=== PATIENT | female | born 1940 | race Two or more races ===

== ENCOUNTER 2017-10-31 16:46 | Inpatient (IN) | payer MEDICARE, MEDICAID ==
[2017-10-31] MEDS ORDERED: Levofloxacin 500mg/100mL 500 MG/100 ML BAG IV ONE ×2 (17:07→17:41)
--- NOTE | 2017-10-31 17:13 | ED Physician Chart ---
ED Chief Complaint/HPI - Patient Information Date Seen:: 10/31/17 Time Seen:: 16:50 Chief Complaint:: Dysuria History of Present Illness:: onset x 4 days of dysuria; Dx with UTI but is resistant to Bactrim; no report of trauma, LOC, H/As, S/T, neck pain, C/P, SOB, Abd. Pain, A/N/V/D/C, fever, chills, or urinary s/s Allergies:: Allergies Allergy/AdvReac Type Severity Reaction Status Date / Time codeine AdvReac Verified 08/26/15 18:25 Penicillins [PCN] AdvReac Verified 08/26/15 18:25 tetracycline AdvReac Verified 08/26/15 18:26 Historian:: Patient, EMS Review:: Nurse's Note Reviewed, Old Chart Reviewed, EMS run form Reviewed <Monroe Castro - Last Filed: 10/31/17 17:15> - Patient Information Allergies:: Allergies Allergy/AdvReac Type Severity Reaction Status Date / Time codeine AdvReac Verified 08/26/15 18:25 Penicillins [PCN] AdvReac Verified 08/26/15 18:25 tetracycline AdvReac Verified 08/26/15 18:26 Vitals:: Vital Signs - 8 hr 10/31/17 20:00 Temp 98.8 F HR 98 RR 18 BP 134/80 O2 Sat % 96 <Mey Venegas - Last Filed: 11/01/17 01:36> ED Review of Systems - Review of Systems General/Constitutional: Fever, No chills, No weight loss, Weakness, No diaphoresis, No edema, No loss of appetite Skin: No skin lesions, No rash, No bruising Head: No headache, No light-headedness Eyes: No loss of vision, No pain, No diplopia ENT: No earache, No nasal drainage, No sore throat, No tinnitus Neck: No neck pain, No swelling, No thyromegaly, No stiffness, No mass noted Cardio Vascular: No chest pain, No palpitations, No PND, No orthopnea, No edema Pulmonary: No SOB, No cough, No sputum, No wheezing GI: No nausea, No vomiting, No diarrhea, No pain, No melena, No hematochezia, No constipation, No hematemesis G/U: Dysuria, No frequency, No hematuria, No nacturia Medical Claims Analyst: No vaginal discharge, No abnormal vaginal bleed, No contraction Musculoskeletal: No bone or joint pain, No back pain, No muscle pain Endocrine: No polyuria, No polydipsia Psychiatric: Prior psych history, No depression, Anxiety, No suicidal ideation, No homicidal ideation, No auditory hallucination, No visual hallucination Hematopoietic: No bruising, No lymphadenopathy Allergic/Immuno: No urticaria, No angioedema Neurological: No syncope, No focal symptoms, No weakness, No paresthesia, No headache, No seizure, No dizziness, Confusion, No vertigo <Monroe Castro - Last Filed: 10/31/17 17:15> ED Past Medical History - Past Medical History Obtainable: Yes Past Medical History: HTN, Asthma/COPD, Dyslipidemia, Arthritis, Dementia Family History: HTN Social History: Non Smoker, No Alcohol, No Drug Use, , Care Facility Surgical History: None Psychiatricy History: Schizophrenia, Bipolar, Dementia Medication: Reviewed <Monroe Castro - Last Filed: 10/31/17 17:15> Family Medical History - Family Member Mother History Unknown: Yes Ethnicity: <Monroe Castro - Last Filed: 10/31/17 17:15> ED Physical Exam - Physical Examination General/Constitutional: Awake, Well-developed, well-nourished, Alert, No distress, GCS 15, Non-toxic appearing, Ambulatory Head: Atraumatic Eyes: Lids, conjuctiva normal, PERRL, EOMI Skin: Nl inspection, No rash, No skin lesions, No ecchymosis, Well hydrated, No lymphadenopathy ENMT: External ears, nose nl, TM canals nl, Nasal exam nl, Lips, teeth, gums nl , Oropharynx nl, Tonsils nl Neck: Nontender, Full ROM w/o pain, No JVD, No nuchal rigidity, No bruit, No mass, No stridor Respiratory: Nl effort/Exclusion, Clear to Auscultation, No Wheeze/Rhonchi/Rales Cardio Vascular: RRR, No murmur, gallop, rubs, NL S1 S2, Carotid/Femoral/Distal pulses equal bilaterally GI: No tenderness/rebounding/guarding, No organomegaly, No hernia, Normal BS's, Nondistended, No mass/bruits, No McBurney tenderness : No CVA tenderness Extremities: No tenderness or effusion, Full ROM, normal strength in all extremities, No edema, Normal digits & nails Neuro/Psych: Alert/oriented, DTR's symmetric, Normal sensory exam, Normal motor strength, Judgement/insight normal, Mood normal, Normal gait, No focal deficits Misc: Normal back, No paraspinal tenderness <Monroe Castro - Last Filed: 10/31/17 17:15> ED Labs/Radiology/EKG Results - EKG Interpretations EKG Time:: 17:11 Rate & Rhythm: 115; ST Comments:: LVH; non-specific st-t changes <Monroe Castro - Last Filed: 10/31/17 17:15> - Lab Results Results: Laboratory Tests 10/31/17 10/31/17 10/31/17 17:20 17:20 17:20 WBC 13.3 H RBC 5.26 H Hgb 13.8 Hct 41.8 MCV 79.4 L MCH 26.3 L MCHC Differential 33.2 RDW 17.4 Plt Count 324 MPV 8.9 Neutrophils % 85.5 H Lymphocytes % 11.2 L Monocytes % 2.8 Eosinophils % 0.0 Basophils % 0.5 PT 11.2 INR 1.08 PTT (Actin FS) 24.0 L Sodium 131 L Potassium 4.4 Chloride 98 Carbon Dioxide 20.5 L Anion Gap 16.9 H BUN 35 H Creatinine 1.7 H Est GFR ( Amer) TNP Est GFR (Non-Af Amer) TNP BUN/Creatinine Ratio 20.6 Glucose 127 H Whole Bld Lactic Acid Calcium 11.2 H Total Bilirubin 0.7 AST 30 ALT 22 Alkaline Phosphatase 69 Creatine Kinase 143 Troponin I Total Protein 8.1 Albumin 4.3 Globulin 3.8 Albumin/Globulin Ratio 1.1 Urine Source Urine Color Urine Clarity Urine pH Ur Specific [place] Urine Protein Urine Glucose (UA) Urine Ketones Urine Blood Urine Nitrate Urine Bilirubin Urine Ictotest Urine Urobilinogen Ur Leukocyte Esterase Urine RBC Urine WBC Ur Epithelial Cells Urine Bacteria Fine Granular Casts 10/31/17 10/31/17 10/31/17 17:20 17:20 19:40 WBC RBC Hgb Hct MCV MCH MCHC Differential RDW Plt Count MPV Neutrophils % Lymphocytes % Monocytes % Eosinophils % Basophils % PT INR PTT (Actin FS) Sodium Potassium Chloride Carbon Dioxide Anion Gap BUN Creatinine Est GFR ( Amer) Est GFR (Non-Af Amer) BUN/Creatinine Ratio Glucose Whole Bld Lactic Acid 3.00 H* Calcium Total Bilirubin AST ALT Alkaline Phosphatase Creatine Kinase Troponin I 0.03 Total Protein Albumin Globulin Albumin/Globulin Ratio Urine Source CLEAN C Urine Color YELLOW Urine Clarity CLEAR Urine pH 5.5 Ur Specific [place] >= 1.030 Urine Protein TRACE Urine Glucose (UA) NEGATIVE Urine Ketones TRACE Urine Blood TRACE Urine Nitrate NEGATIVE Urine Bilirubin MODERATE H Urine Ictotest Not Reportable Urine Urobilinogen 1.0 Ur Leukocyte Esterase NEGATIVE Urine RBC 5-10 H Urine WBC 2-5 Ur Epithelial Cells MODERATE Urine Bacteria FEW Fine Granular Casts 2-5 H 10/31/17 19:40 WBC RBC Hgb Hct MCV MCH MCHC Differential RDW Plt Count MPV Neutrophils % Lymphocytes % Monocytes % Eosinophils % Basophils % PT INR PTT (Actin FS) Sodium Potassium Chloride Carbon Dioxide Anion Gap BUN Creatinine Est GFR ( Amer) Est GFR (Non-Af Amer) BUN/Creatinine Ratio Glucose Whole Bld Lactic Acid 1.80 Calcium Total Bilirubin AST ALT Alkaline Phosphatase Creatine Kinase Troponin I Total Protein Albumin Globulin Albumin/Globulin Ratio Urine Source Urine Color Urine Clarity Urine pH Ur Specific [place] Urine Protein Urine Glucose (UA) Urine Ketones Urine Blood Urine Nitrate Urine Bilirubin Urine Ictotest Urine Urobilinogen Ur Leukocyte Esterase Urine RBC Urine WBC Ur Epithelial Cells Urine Bacteria Fine Granular Casts <Mey Venegas - Last Filed: 11/01/17 01:36> ED Septic Shock - . Is Septic Shock (SBP<90, OR Lactate>4 mmol\L) present?: No <Monroe Castro - Last Filed: 10/31/17 17:15> - . Is Septic Shock (SBP<90, OR Lactate>4 mmol\L) present?: No - <6hrs of presentation: Vital Signs: Vital Signs - 8 hr 10/31/17 20:00 Temp 98.8 F HR 98 RR 18 BP 134/80 O2 Sat % 96 <Mey Venegas - Last Filed: 11/01/17 01:36> ED Reassessment (Disposition) - Reassessment Reassessment Condition:: Improved - Diagnosis Diagnosis:: UTI; Sepsis <Monroe Castro - Last Filed: 10/31/17 17:15> - Reassessment Reassessment:: Urinary tract infection Leukocytosis Hyponatremia Dehydration Levaquin IV NS IV bolus - Patient Disposition Discharge/Transfer:: Acute Care w/in this hosp Admitting Medical Physician:: Ben De Souza <Mey Venegas - Last Filed: 11/01/17 01:36>
[2017-10-31 17:38] LABS: % BASOPHILS 0.5 % (0.0-2.0); % LYMPHOCYTES 11.2 % (20.0-50.0); % MONOCYTES 2.8 % (2.0-10.0); % NEUTROPHILS 85.5 % (40.0-80.0); BASOPHILE ABSOLUTE 0.1 Th/cumm (0-0.2); HEMATOCRIT 41.8 % (41.0-60); HEMOGLOBIN 13.8 gm/dL (12-16); LYMPHOCYTE ABSOLUTE 1.5 Th/cmm (1.5-3.0); MEAN CELL VOLUME 79.4 fl (81-100); MEAN CORPUSCULAR HEMOGLOBIN 26.3 pg (27.0-31.0); MEAN CORPUSCULAR HGB CONC 33.2 pg (28.0-36.0); MEAN PLATELET VOLUME 8.9 fl; MONOCYTE ABSOLUTE 0.4 Th/cmm (0.3-1.0); NEUTROPHILE ABSOLUTE 11.3 Th/cmm (1.8-8.0); PLATELET COUNT 324 Th/cmm (150-400); RED BLOOD COUNT 5.26 Mil/cmm (3.80-5.20); RED CELL DISTRIBUTION WIDTH 17.4 % (11.5-20.0); WHITE BLOOD COUNT 13.3 Th/cmm (4.8-10.8)
[2017-10-31 17:45] LABS: INR 1.08 (0.5-1.4); PROTHROMBIN TIME (TEST) 11.2 SECONDS (9.5-11.5)
[2017-10-31 17:48] LABS: ALB/GLOB RATIO 1.1 (1.0-1.8); ALBUMIN 4.3 gm/dL (3.7-5.3); ALKALINE PHOSPHATASE 69 U/L (34-104); ANION GAP 16.9 (7.0-16.0); BILIRUBIN,TOTAL 0.7 mg/dL (0.3-1.0); BUN - UREA NITROGEN 35 mg/dL (7-25); CALCIUM SERUM 11.2 mg/dL (8.6-10.3); CARBON DIOXIDE 20.5 mEq/L (21.0-31.0); CHLORIDE 98 mEq/L (98-107); CREATININE - SERUM 1.7 mg/dL (0.6-1.2); CREATININE KINASE 143 U/L (30-223); GLUCOSE 127 mg/dL (70-105); POTASSIUM SERUM 4.4 mEq/L (3.5-5.1); SGOT 30 U/L (13-39); SGPT/ALT 22 U/L (7-52); SODIUM SERUM 131 mEq/L (136-145); TOTAL PROTEIN,SERUM 8.1 gm/dL (6.0-8.3)
[2017-10-31] MEDS ORDERED: Sodium Chloride 0.9% 1,000 ML IV ONE (19:12)
[2017-10-31] MEDS ORDERED: Sodium Chloride 0.45% 1,000 ML IV ONE (19:12)
[2017-10-31 20:03] LABS: URINE SOURCE CLEAN C
[2017-10-31 20:04] LABS: URINE BILIRUBIN MODERATE (NEGATIVE); URINE BLOOD TRACE (NEGATIVE); URINE CLARITY CLEAR (CLEAR); URINE COLOR YELLOW; URINE GLUCOSE (UA) NEGATIVE (NEGATIVE); URINE KETONE TRACE mg/dL (NEGATIVE); URINE LEUKOCYTE ESTERASE NEGATIVE (NEGATIVE); URINE MICROSCOPIC INDICATED? YES; URINE NITRATE NEGATIVE (NEGATIVE); URINE PH 5.5 (4.6 - 8.0); URINE PROTEIN TRACE mg/dL (NEGATIVE)
[2017-10-31 20:07] LABS: URINE BACTERIA FEW /hpf (NONE SEEN); URINE EPITHELIAL CELLS MODERATE /lpf (FEW)
[2017-10-31] MEDS ORDERED: Sodium Chloride 0.9% 1,000 ML IV SCH (20:51)
[2017-10-31] MEDS ORDERED: Levofloxacin 750mg/150mL 750 MG/150 ML BAG IV SCH (21:00)
[2017-10-31] MEDS ORDERED: Magnesium Hydroxide (MOM) 30 mL UDC PO PRN (23:00)
[2017-10-31] MEDS ORDERED: Albuterol Nebulizer 2.5mg/3mL HHN PRN (23:00)
[2017-11-01] MEDS: Albuterol Nebulizer 2.5mg/3mL HHN SCH ×7 (00:05→23:26)
[2017-11-01 00:53] VITALS: BP 164/82
[2017-11-01] MEDS: Sodium Chloride 0.9% 1,000 ML IV SCH ×2 (01:55→20:16)
[2017-11-01 05:50] LABS: % BASOPHILS 0.7 % (0.0-2.0); % EOSINOPHILS 0.4 % (0.0-5.0); % LYMPHOCYTES 18.9 % (20.0-50.0); % MONOCYTES 7.6 % (2.0-10.0); % NEUTROPHILS 72.4 % (40.0-80.0); BASOPHILE ABSOLUTE 0.1 Th/cumm (0-0.2); HEMOGLOBIN 11.7 gm/dL (12-16); LYMPHOCYTE ABSOLUTE 1.8 Th/cmm (1.5-3.0); MEAN CELL VOLUME 80.4 fl (81-100); MEAN CORPUSCULAR HGB CONC 32.3 pg (28.0-36.0); MONOCYTE ABSOLUTE 0.7 Th/cmm (0.3-1.0); NEUTROPHILE ABSOLUTE 6.8 Th/cmm (1.8-8.0); RED BLOOD COUNT 4.51 Mil/cmm (3.80-5.20); RED CELL DISTRIBUTION WIDTH 17.6 % (11.5-20.0)
[2017-11-01 05:52] LABS: HEMATOCRIT 36.3 % (41.0-60); PLATELET COUNT 190 Th/cmm (150-400); WHITE BLOOD COUNT 9.4 Th/cmm (4.8-10.8)
[2017-11-01 05:57] LABS: ALB/GLOB RATIO 1.2 (1.0-1.8); ALBUMIN 3.4 gm/dL (3.7-5.3); ALKALINE PHOSPHATASE 52 U/L (34-104); BILIRUBIN,TOTAL 0.6 mg/dL (0.3-1.0); BUN - UREA NITROGEN 31 mg/dL (7-25); CALCIUM SERUM 9.8 mg/dL (8.6-10.3); CREATININE - SERUM 1.3 mg/dL (0.6-1.2); GLUCOSE 99 mg/dL (70-105); POTASSIUM SERUM 4.2 mEq/L (3.5-5.1); SGOT 21 U/L (13-39); SGPT/ALT 15 U/L (7-52); SODIUM SERUM 132 mEq/L (136-145); TOTAL PROTEIN,SERUM 6.2 gm/dL (6.0-8.3)
--- NOTE | 2017-11-01 08:36 | History and Physical ---
History of Present Illness - HPI Chief Complaint: Increased in confusion HPI: This is a patient that I follow in an SNF, I received a phone call that patient has been more confused, UA showed UTI , order to transferred patient to ER was given. In ER exam was found Leukocytosis. 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 GI: Report: No Pertinent Hx Psych: Report: Schizophrenia Musculoskeletal: Report: Other (General weakness) Rheumatologic: Report: No pertinent Hx Infectious Disease: Report: No Pertinent Hx Renal/: Report: No Pertinent Hx Endocrine: Report: No Pertinent Hx Dermatology: Report: No Pertinent Hx - Past Surgical History Past Surgical History: No pertinent Hx Family Medical History - Family Member Mother History Unknown: Yes Name:: roger Age: 76 Ethnicity: Living Status: Still Living Hx Family Cancer: No Hx Family Coronary Artery Disease: Yes Hx Family Congestive Heart Failure: No Hx Family Hypertension: Yes Hx Family Stroke: No Hx Family Diabetes: No Hx Family Seizures: No Hx Family Dementia: No Hx Family AIDS: No Hx Family HIV: No Hx Family COPD: No Hx Family Hepatitis: No Hx Family Psychiatric Problems: No Hx Family Tuberculosis: No Social History Smoke: No Alcohol: None Drugs: None Lives: Residential Domestic Violence: Negative - Medications Home Medications: Home Medication Medication Instructions Recorded Type Albuterol Nebulizer 2.5mg/3mL 2.5 mg HHN Q4HRT #0 each 01/25/16 Rx [Albuterol Neb UD*] Aspirin [Aspirin Chewable] 81 mg PO DAILY #0 ctb 01/25/16 Rx Atorvastatin Calcium [Lipitor] 20 mg PO HS #0 tab 01/25/16 Rx Bisacodyl [Dulcolax 5 Mg Ec Tab] 10 mg PO BID #0 ect 01/25/16 Rx Calcium Carb/Vit D 500mg/200U 1 tab PO DAILY #0 tab 01/25/16 Rx [Oscal w/Vitamin D] Cyanocobalamin [Vitamin B12] 1,000 mcg PO DAILY #0 tab 01/25/16 Rx Docusate Sodium [Colace] 250 mg PO DAILY #0 sgl 01/25/16 Rx Magnesium Hydroxide [Milk of 30 ml PO DAILY PRN #0 udc 01/25/16 Rx Magnesia] Multivitamin w/ Minerals 1 tab PO DAILY #0 tab 01/25/16 Rx [Theragran M] Acetaminophen [Tylenol] 650 mg PO Q4HR PRN 10/31/17 History Albuterol Sulfate [Proair 2 puff IH Q12H PRN 10/31/17 History Respiclick] Atorvastatin Calcium [Lipitor] 20 mg PO HS 10/31/17 History Calcium Carbonate 1,000 mg PO Q6H PRN 10/31/17 History Calcium Carbonate/Vitamin D3 1 tab PO DAILY 10/31/17 History [Calcium 500-Vit D3 200 Caplet] Clonidine HCl [Catapres] 0.1 mg PO Q8H PRN 10/31/17 History Cranberry Fruit [Cranberry] 450 mg PO BID 10/31/17 History Cyclosporine [Restasis] 1 drop OP BID 10/31/17 History Ferrous Sulfate [Iron] 325 mg PO DAILY 10/31/17 History Omeprazole 20 mg PO DAILY 10/31/17 History Potassium Chloride [Klor-Con 10] 1 tab PO DAILY 10/31/17 History Potassium Chloride [Klor-Con M10] 1 tab PO DAILY 10/31/17 History Protein Hydrolysate,Milk [Liquid 30 ml PO DAILY 10/31/17 History Protein Fortifier] Sertraline [Zoloft] 50 mg PO HS 10/31/17 History - Allergies Allergies/Adverse Reactions: Allergies Allergy/AdvReac Type Severity Reaction Status Date / Time codeine AdvReac Verified 08/26/15 18:25 Penicillins [PCN] AdvReac Verified 08/26/15 18:25 tetracycline AdvReac Verified 08/26/15 18:26 Review of Systems - Review of Systems Constitutional: Report: Weakness Eyes: Report: No Significant ENT: Report: No Significant Respiratory: Report: No Significant Cardiovascular: Report: No Significant Gastrointestinal: Report: No Significant Genitourinary: Report: Dysuria Musculoskeletal: Report: Other (Muscle weakness) Skin: Report: No Significant Neurological: Report: Weakness Physical Exam - Physical Exam HEENT: Report: Ears Nose Throat within normal limits Neck: Report: Within normal limits Cardiovascular Systems: Report: Regular, Rate and Rhythm Respiratory: Report: Other (Bilateral low air entry.) Abdomen: Report: Non-tender to palpation Back: Report: Inspection of back is within normal limits. Extremities: Report: Non-tender to palpation. Skin: Report: Color of skin is within normal limits, Warm, Dry Neuro/Psych: Report: Mood affect is within normal limits - Lab Results All Lab Results last 24 hours: Laboratory Results - last 24 hr 10/31/17 10/31/17 10/31/17 17:20 17:20 17:20 WBC 13.3 H RBC 5.26 H Hgb 13.8 Hct 41.8 MCV 79.4 L MCH 26.3 L MCHC Differential 33.2 RDW 17.4 Plt Count 324 MPV 8.9 Neutrophils % 85.5 H Lymphocytes % 11.2 L Monocytes % 2.8 Eosinophils % 0.0 Basophils % 0.5 PT 11.2 INR 1.08 PTT (Actin FS) 24.0 L Sodium 131 L Potassium 4.4 Chloride 98 Carbon Dioxide 20.5 L Anion Gap 16.9 H BUN 35 H Creatinine 1.7 H Est GFR ( Amer) TNP Est GFR (Non-Af Amer) TNP BUN/Creatinine Ratio 20.6 Glucose 127 H Whole Bld Lactic Acid Calcium 11.2 H Total Bilirubin 0.7 AST 30 ALT 22 Alkaline Phosphatase 69 Creatine Kinase 143 Troponin I Total Protein 8.1 Albumin 4.3 Globulin 3.8 Albumin/Globulin Ratio 1.1 Urine Source Urine Color Urine Clarity Urine pH Ur Specific [place] Urine Protein Urine Glucose (UA) Urine Ketones Urine Blood Urine Nitrate Urine Bilirubin Urine Ictotest Urine Urobilinogen Ur Leukocyte Esterase Urine RBC Urine WBC Ur Epithelial Cells Urine Bacteria Fine Granular Casts 10/31/17 10/31/17 10/31/17 17:20 17:20 19:40 WBC RBC Hgb Hct MCV MCH MCHC Differential RDW Plt Count MPV Neutrophils % Lymphocytes % Monocytes % Eosinophils % Basophils % PT INR PTT (Actin FS) Sodium Potassium Chloride Carbon Dioxide Anion Gap BUN Creatinine Est GFR ( Amer) Est GFR (Non-Af Amer) BUN/Creatinine Ratio Glucose Whole Bld Lactic Acid 3.00 H* Calcium Total Bilirubin AST ALT Alkaline Phosphatase Creatine Kinase Troponin I 0.03 Total Protein Albumin Globulin Albumin/Globulin Ratio Urine Source CLEAN C Urine Color YELLOW Urine Clarity CLEAR Urine pH 5.5 Ur Specific [place] >= 1.030 Urine Protein TRACE Urine Glucose (UA) NEGATIVE Urine Ketones TRACE Urine Blood TRACE Urine Nitrate NEGATIVE Urine Bilirubin MODERATE H Urine Ictotest Not Reportable Urine Urobilinogen 1.0 Ur Leukocyte Esterase NEGATIVE Urine RBC 5-10 H Urine WBC 2-5 Ur Epithelial Cells MODERATE Urine Bacteria FEW Fine Granular Casts 2-5 H 10/31/17 11/01/17 11/01/17 19:40 04:55 04:55 WBC 9.4 D RBC 4.51 Hgb 11.7 L Hct 36.3 L D MCV 80.4 L MCH 26.0 L MCHC Differential 32.3 RDW 17.6 Plt Count 190 D MPV 9.0 Neutrophils % 72.4 Lymphocytes % 18.9 L Monocytes % 7.6 Eosinophils % 0.4 Basophils % 0.7 PT INR PTT (Actin FS) Sodium 132 L Potassium 4.2 Chloride Carbon Dioxide Anion Gap 10.7 BUN 31 H Creatinine 1.3 H Est GFR ( Amer) TNP Est GFR (Non-Af Amer) TNP BUN/Creatinine Ratio 23.8 Glucose 99 Whole Bld Lactic Acid 1.80 Calcium 9.8 Total Bilirubin 0.6 AST 21 ALT 15 Alkaline Phosphatase 52 Creatine Kinase Troponin I Total Protein 6.2 Albumin 3.4 L Globulin 2.8 Albumin/Globulin Ratio 1.2 Urine Source Urine Color Urine Clarity Urine pH Ur Specific [place] Urine Protein Urine Glucose (UA) Urine Ketones Urine Blood Urine Nitrate Urine Bilirubin Urine Ictotest Urine Urobilinogen Ur Leukocyte Esterase Urine RBC Urine WBC Ur Epithelial Cells Urine Bacteria Fine Granular Casts - Assessment Assessment: Patient is awake, alert, calm, in no acute distress. Patient shows Leukocytosis. Dx. Leukocytosis, UTI. - Plan Plan: Patient in IV NS, IV AB, continue with SNF meds. Will continue to monitor.
[2017-11-01 08:47] LABS: ANION GAP 12.9 (7.0-16.0); CARBON DIOXIDE 19.3 mEq/L (21.0-31.0); CHLORIDE 104 mEq/L (98-107)
--- NOTE | 2017-11-01 08:48 | Diagnostic Imaging Report ---
CHEST X-RAY: AP view INDICATION: Congestion COMPARISON: 02/01/2016 FINDINGS: Mild increased interstitial lung markings are noted. No focal consolidation pleural effusions or evidence of leopoldo CHF. Heart size is within normal limits. Mildly tortuous aorta is noted. Degenerative changes of the spine are noted. IMPRESSION: Mild increased interstitial lung markings probably due to chronic lung changes. No evidence of leopoldo CHF. No focal consolidation identified.
[2017-11-01] MEDS ORDERED: CYCLOSPORINE OP SCH (09:00)
[2017-11-01] MEDS: Pantoprazole 40 mg EC Tab PO SCH (09:57)
[2017-11-01] MEDS: Multivitamin w/ Minerals Tab PO SCH (09:57)
[2017-11-01] MEDS: Aspirin 81mg Chewable Tab PO SCH (09:58)
[2017-11-01] MEDS: Atorvastatin Calcium 10 MG TAB PO SCH (20:17)
[2017-11-01] MEDS ORDERED: Non-Formulary Item 1 EA (Atorvastatin Calcium [Lipitor] 20 MG) PO SCH (21:00)
[2017-11-02] MEDS: Albuterol Nebulizer 2.5mg/3mL HHN SCH ×6 (03:44→22:41)
[2017-11-02 06:44] LABS: % BASOPHILS 0.9 % (0.0-2.0); % EOSINOPHILS 0.5 % (0.0-5.0); % LYMPHOCYTES 16.5 % (20.0-50.0); % MONOCYTES 6.7 % (2.0-10.0); % NEUTROPHILS 75.4 % (40.0-80.0); BASOPHILE ABSOLUTE 0.1 Th/cumm (0-0.2); HEMATOCRIT 33.9 % (41.0-60); HEMOGLOBIN 11.2 gm/dL (12-16); LYMPHOCYTE ABSOLUTE 1.2 Th/cmm (1.5-3.0); MEAN CELL VOLUME 79.5 fl (81-100); MEAN CORPUSCULAR HEMOGLOBIN 26.3 pg (27.0-31.0); MONOCYTE ABSOLUTE 0.5 Th/cmm (0.3-1.0); NEUTROPHILE ABSOLUTE 5.7 Th/cmm (1.8-8.0); PLATELET COUNT 239 Th/cmm (150-400); RED BLOOD COUNT 4.26 Mil/cmm (3.80-5.20); WHITE BLOOD COUNT 7.5 Th/cmm (4.8-10.8)
[2017-11-02 07:12] LABS: ALB/GLOB RATIO 1.2 (1.0-1.8); ALBUMIN 3.5 gm/dL (3.7-5.3); ALKALINE PHOSPHATASE 50 U/L (34-104); ANION GAP 11.5 (7.0-16.0); BILIRUBIN,TOTAL 0.5 mg/dL (0.3-1.0); BUN - UREA NITROGEN 22 mg/dL (7-25); CALCIUM SERUM 10.1 mg/dL (8.6-10.3); CARBON DIOXIDE 22.7 mEq/L (21.0-31.0); CHLORIDE 104 mEq/L (98-107); CREATININE - SERUM 0.9 mg/dL (0.6-1.2); GLUCOSE 102 mg/dL (70-105); POTASSIUM SERUM 4.2 mEq/L (3.5-5.1); SGOT 18 U/L (13-39); SGPT/ALT 16 U/L (7-52); SODIUM SERUM 134 mEq/L (136-145); TOTAL PROTEIN,SERUM 6.4 gm/dL (6.0-8.3)
[2017-11-02] MEDS: Pantoprazole 40 mg EC Tab PO SCH ×2 (09:00→09:14)
[2017-11-02] MEDS: Multivitamin w/ Minerals Tab PO SCH ×2 (09:00→09:14)
[2017-11-02] MEDS: Aspirin 81mg Chewable Tab PO SCH ×2 (09:00→09:14)
--- NOTE | 2017-11-02 09:12 | General Progress Note ---
Subjective - Review of Systems Service Date: 11/02/17 Subjective: I am better Objective - Results Result Diagrams: 11/02/17 05:50 11/02/17 05:50 Recent Labs: Laboratory Last Values WBC 7.5 Th/cmm (4.8-10.8) 11/02/17 05:50 RBC 4.26 Mil/cmm (3.80-5.20) 11/02/17 05:50 Hgb 11.2 gm/dL (12-16) L 11/02/17 05:50 Hct 33.9 % (41.0-60) L 11/02/17 05:50 MCV 79.5 fl (81-100) L 11/02/17 05:50 MCH 26.3 pg (27.0-31.0) L 11/02/17 05:50 MCHC Differential 33.0 pg (28.0-36.0) 11/02/17 05:50 RDW 18.0 % (11.5-20.0) 11/02/17 05:50 Plt Count 239 Th/cmm (150-400) 11/02/17 05:50 MPV 9.0 fl 11/02/17 05:50 Neutrophils % 75.4 % (40.0-80.0) 11/02/17 05:50 Lymphocytes % 16.5 % (20.0-50.0) L 11/02/17 05:50 Monocytes % 6.7 % (2.0-10.0) 11/02/17 05:50 Eosinophils % 0.5 % (0.0-5.0) 11/02/17 05:50 Basophils % 0.9 % (0.0-2.0) 11/02/17 05:50 PT 11.2 SECONDS (9.5-11.5) 10/31/17 17:20 INR 1.08 (0.5-1.4) 10/31/17 17:20 PTT (Actin FS) 24.0 SECONDS (26.0-38.0) L 10/31/17 17:20 Sodium 134 mEq/L (136-145) L 11/02/17 05:50 Potassium 4.2 mEq/L (3.5-5.1) 11/02/17 05:50 Chloride 104 mEq/L (98-107) 11/02/17 05:50 Carbon Dioxide 22.7 mEq/L (21.0-31.0) 11/02/17 05:50 Anion Gap 11.5 (7.0-16.0) 11/02/17 05:50 BUN 22 mg/dL (7-25) 11/02/17 05:50 Creatinine 0.9 mg/dL (0.6-1.2) 11/02/17 05:50 Est GFR ( Amer) TNP 11/02/17 05:50 Est GFR (Non-Af Amer) TNP 11/02/17 05:50 BUN/Creatinine Ratio 24.4 11/02/17 05:50 Glucose 102 mg/dL (70-105) 11/02/17 05:50 Whole Bld Lactic Acid 1.80 mmol/L (0.60-1.99) 10/31/17 19:40 Calcium 10.1 mg/dL (8.6-10.3) 11/02/17 05:50 Total Bilirubin 0.5 mg/dL (0.3-1.0) 11/02/17 05:50 AST 18 U/L (13-39) 11/02/17 05:50 ALT 16 U/L (7-52) 11/02/17 05:50 Alkaline Phosphatase 50 U/L (34-104) 11/02/17 05:50 Creatine Kinase 143 U/L (30-223) 10/31/17 17:20 Troponin I 0.03 ng/mL (0.01-0.05) 10/31/17 17:20 Total Protein 6.4 gm/dL (6.0-8.3) 11/02/17 05:50 Albumin 3.5 gm/dL (3.7-5.3) L 11/02/17 05:50 Globulin 2.9 gm/dL 11/02/17 05:50 Albumin/Globulin Ratio 1.2 (1.0-1.8) 11/02/17 05:50 Urine Source CLEAN C 10/31/17 19:40 Urine Color YELLOW 10/31/17 19:40 Urine Clarity CLEAR (CLEAR) 10/31/17 19:40 Urine pH 5.5 (4.6 - 8.0) 10/31/17 19:40 Ur Specific [place] >= 1.030 (1.005-1.030) 10/31/17 19:40 Urine Protein TRACE mg/dL (NEGATIVE) 10/31/17 19:40 Urine Glucose (UA) NEGATIVE mg/dL (NEGATIVE) 10/31/17 19:40 Urine Ketones TRACE mg/dL (NEGATIVE) 10/31/17 19:40 Urine Blood TRACE (NEGATIVE) 10/31/17 19:40 Urine Nitrate NEGATIVE (NEGATIVE) 10/31/17 19:40 Urine Bilirubin MODERATE (NEGATIVE) H 10/31/17 19:40 Urine Ictotest Not Reportable 10/31/17 19:40 Urine Urobilinogen 1.0 E.U./dL (0.2 - 1.0) 10/31/17 19:40 Ur Leukocyte Esterase NEGATIVE (NEGATIVE) 10/31/17 19:40 Urine RBC 5-10 /hpf (0-5) H 10/31/17 19:40 Urine WBC 2-5 /hpf (0-5) 10/31/17 19:40 Ur Epithelial Cells MODERATE /lpf (FEW) 10/31/17 19:40 Urine Bacteria FEW /hpf (NONE SEEN) 10/31/17 19:40 Fine Granular Casts 2-5 /lpf (NONE SEEN) H 10/31/17 19:40 - Physical Exam Vitals and I&O: Vital Signs Temp 97.6 F 11/02/17 08:55 Pulse 97 11/02/17 08:55 Resp 18 11/02/17 08:55 BP 120/63 11/02/17 08:55 Pulse Ox 100 11/02/17 08:55 Intake & Output 11/01/17 11/02/17 11/02/17 18:59 06:59 18:59 Intake Total 1017.5 Balance 1017.5 Weight (lbs) 113.398 kg Intake: Intake, IV Amount 917.5 Sodium Chloride 0.9% 1, 917.5 000 ml @ 50 mls/hr IV . Q20H [facility] Rx#:[id number] Oral 100 Other: # Voids 3 Stool Characteristics Soft Formed Weight Source Estimated Active Medications: Current Medications Acetaminophen (Tylenol) 650 mg PO Q4HR PRN PRN Reason: Pain/temp>100 Stop: 12/30/17 22:59 Last Admin: 11/01/17 01:55 Dose: 650 mg Albuterol Sulfate (Albuterol 2.5mg/3ml Neb Ud) 2.5 mg HHN Q4HRT NORAH Stop: 12/30/17 22:59 Last Admin: 11/02/17 07:08 Dose: 2.5 mg Albuterol Sulfate (Albuterol 2.5mg/3ml Neb Ud) 2.5 mg HHN Q12H PRN PRN Reason: copd Aspirin (Aspirin Chewable) 81 mg PO DAILY NORAH Stop: 12/31/17 08:59 Last Admin: 11/02/17 09:00 Dose: 81 mg Atorvastatin Calcium (Lipitor) 20 mg PO HS [facility]; Protocol Stop: 12/31/17 20:59 Last Admin: 11/01/17 20:17 Dose: 20 mg Bisacodyl (Dulcolax 5 Mg Ec Tab) 10 mg PO BID [facility] Stop: 12/31/17 08:59 Last Admin: 11/02/17 09:00 Dose: 10 mg Levofloxacin (Levaquin Pb) 750 mg in 150 mls @ 100 mls/hr IV Q48HR NORAH Stop: 11/12/17 20:29 Sodium Chloride (Nacl 0.9%) 1,000 mls @ 50 mls/hr IV .Q20H [facility]AH Stop: 12/30/17 23:14 Last Admin: 11/01/17 20:16 Dose: 50 mls/hr Magnesium Hydroxide (Milk Of Magnesia) 30 ml PO DAILY PRN PRN Reason: Constipation Stop: 12/30/17 22:59 Pantoprazole Sodium (Protonix) 40 mg PO DAILY NORAH Stop: 12/31/17 08:59 Last Admin: 11/02/17 09:00 Dose: 40 mg Sertraline HCl (Zoloft) 50 mg PO HS [facility]; Protocol Stop: 12/31/17 20:59 Last Admin: 11/01/17 20:23 Dose: 50 mg General: Alert, Other (Confused) HEENT: Atraumatic Neck: Supple Cardiovascular: Regular rate Lungs: Clear to auscultation Abdomen: Bowel sounds Extremities: Other (No edema) Neurological: Other (Unstable gait) Skin: Other (Warm and dry) Psych/Mental Status: Other (Some confusion) - Procedures Procedures: Procedures Procedure Code Date GROUP PSYCHOTHERAPY 25278 08/26/15 GROUP PSYCHOTHERAPY [id number] 08/26/15 OTHER GROUP THERAPY 94.44 06/25/14 Assessment/Plan - Assessment Assessment: Patient is awake, alert, calm, in no acute distress. Patient is confused. Leukocytosis improved. Dx. Leukocytosis, UTI, schizophrenia, Dementia. - Plan Plan: Patient in IV NS, IV AB, continue with SNF meds. Request for Psychiatric consult and PT done. Will continue to monitor.
[2017-11-02] MEDS: Sodium Chloride 0.9% 1,000 ML IV SCH (18:21)
[2017-11-02] MEDS ORDERED: Levofloxacin 750mg/150mL 750 MG/150 ML BAG IV SCH (19:00)
[2017-11-02] MEDS: Atorvastatin Calcium 10 MG TAB PO SCH (20:16)
[2017-11-03] MEDS: Albuterol Nebulizer 2.5mg/3mL HHN SCH ×3 (03:07→12:54)
[2017-11-03 05:43] LABS: ALB/GLOB RATIO 1.2 (1.0-1.8); ALBUMIN 3.5 gm/dL (3.7-5.3); ALKALINE PHOSPHATASE 47 U/L (34-104); ANION GAP 11.8 (7.0-16.0); BILIRUBIN,TOTAL 0.6 mg/dL (0.3-1.0); BUN - UREA NITROGEN 17 mg/dL (7-25); CALCIUM SERUM 10.3 mg/dL (8.6-10.3); CARBON DIOXIDE 23.3 mEq/L (21.0-31.0); CHLORIDE 101 mEq/L (98-107); CREATININE - SERUM 0.8 mg/dL (0.6-1.2); GLUCOSE 94 mg/dL (70-105); POTASSIUM SERUM 4.1 mEq/L (3.5-5.1); SGOT 20 U/L (13-39); SGPT/ALT 17 U/L (7-52); SODIUM SERUM 132 mEq/L (136-145); TOTAL PROTEIN,SERUM 6.4 gm/dL (6.0-8.3)
[2017-11-03 06:53] LABS: % BASOPHILS 0.5 % (0.0-2.0); % EOSINOPHILS 1.4 % (0.0-5.0); % LYMPHOCYTES 18.4 % (20.0-50.0); % MONOCYTES 8.3 % (2.0-10.0); % NEUTROPHILS 71.4 % (40.0-80.0); EOSINOPHILE ABSOLUTE 0.1 Th/cmm (0.1-0.4); HEMATOCRIT 35.5 % (41.0-60); HEMOGLOBIN 11.7 gm/dL (12-16); LYMPHOCYTE ABSOLUTE 1.5 Th/cmm (1.5-3.0); MEAN CORPUSCULAR HEMOGLOBIN 26.5 pg (27.0-31.0); MEAN CORPUSCULAR HGB CONC 33.1 pg (28.0-36.0); MEAN PLATELET VOLUME 9.6 fl; MONOCYTE ABSOLUTE 0.7 Th/cmm (0.3-1.0); NEUTROPHILE ABSOLUTE 5.7 Th/cmm (1.8-8.0); PLATELET COUNT 197 Th/cmm (150-400); RED BLOOD COUNT 4.43 Mil/cmm (3.80-5.20); RED CELL DISTRIBUTION WIDTH 17.8 % (11.5-20.0)
--- NOTE | 2017-11-03 08:42 | Discharge Summary ---
General Discharge Summary - Discharge Summary Date of Admission: 10/31/17 Admitting Diagnosis: Leukocytosis, UTI Discharge Date: 11/03/17 Discharge Diagnosis: Increased in confusion, Leukocytosis, UTI, Schizophrenia, Asthma,COPD,CHF.HTN, Obesity Laboratory Findings: Laboratory Results - last 24 hr 11/03/17 11/03/17 04:45 04:45 WBC 8.0 RBC 4.43 Hgb 11.7 L Hct 35.5 L MCV 80.0 L MCH 26.5 L MCHC Differential 33.1 RDW 17.8 Plt Count 197 MPV 9.6 Neutrophils % 71.4 Lymphocytes % 18.4 L Monocytes % 8.3 Eosinophils % 1.4 Basophils % 0.5 Sodium 132 L Potassium 4.1 Chloride 101 Carbon Dioxide 23.3 Anion Gap 11.8 BUN 17 Creatinine 0.8 Est GFR ( Amer) TNP Est GFR (Non-Af Amer) TNP BUN/Creatinine Ratio 21.3 Glucose 94 Calcium 10.3 Total Bilirubin 0.6 AST 20 ALT 17 Alkaline Phosphatase 47 Total Protein 6.4 Albumin 3.5 L Globulin 2.9 Albumin/Globulin Ratio 1.2 Hospital Course: Patient responded to treatment, confusion decreased, leukocytosis improved and UTI was resolved. Condition at Discharge: Stable Disposition: Discharge/Transfered to SNF Home Medications: Home Medication Medication Instructions Recorded Type Albuterol Nebulizer 2.5mg/3mL 2.5 mg HHN Q4HRT #0 each 01/25/16 Rx [Albuterol Neb UD*] Aspirin [Aspirin Chewable] 81 mg PO DAILY #0 ctb 01/25/16 Rx Atorvastatin Calcium [Lipitor] 20 mg PO HS #0 tab 01/25/16 Rx Bisacodyl [Dulcolax 5 Mg Ec Tab] 10 mg PO BID #0 ect 01/25/16 Rx Calcium Carb/Vit D 500mg/200U 1 tab PO DAILY #0 tab 01/25/16 Rx [Oscal w/Vitamin D] Cyanocobalamin [Vitamin B12] 1,000 mcg PO DAILY #0 tab 01/25/16 Rx Docusate Sodium [Colace] 250 mg PO DAILY #0 sgl 01/25/16 Rx Magnesium Hydroxide [Milk of 30 ml PO DAILY PRN #0 udc 01/25/16 Rx Magnesia] Multivitamin w/ Minerals 1 tab PO DAILY #0 tab 01/25/16 Rx [Theragran M] Acetaminophen [Tylenol] 650 mg PO Q4HR PRN 10/31/17 History Albuterol Sulfate [Proair 2 puff IH Q12H PRN 10/31/17 History Respiclick] Atorvastatin Calcium [Lipitor] 20 mg PO HS 10/31/17 History Calcium Carbonate 1,000 mg PO Q6H PRN 10/31/17 History Calcium Carbonate/Vitamin D3 1 tab PO DAILY 10/31/17 History [Calcium 500-Vit D3 200 Caplet] Clonidine HCl [Catapres] 0.1 mg PO Q8H PRN 10/31/17 History Cranberry Fruit [Cranberry] 450 mg PO BID 10/31/17 History Cyclosporine [Restasis] 1 drop OP BID 10/31/17 History Ferrous Sulfate [Iron] 325 mg PO DAILY 10/31/17 History Omeprazole 20 mg PO DAILY 10/31/17 History Potassium Chloride [Klor-Con 10] 1 tab PO DAILY 10/31/17 History Potassium Chloride [Klor-Con M10] 1 tab PO DAILY 10/31/17 History Protein Hydrolysate,Milk [Liquid 30 ml PO DAILY 10/31/17 History Protein Fortifier] Sertraline [Zoloft] 50 mg PO HS 10/31/17 History Inpatient Medications: Current Medications Acetaminophen (Tylenol) 650 mg PO Q4HR PRN PRN Reason: Pain/temp>100 Stop: 12/30/17 22:59 Last Admin: 11/02/17 20:16 Dose: 650 mg Albuterol Sulfate (Albuterol 2.5mg/3ml Neb Ud) 2.5 mg HHN Q4HRT NORAH Stop: 12/30/17 22:59 Last Admin: 11/03/17 07:13 Dose: 2.5 mg Albuterol Sulfate (Albuterol 2.5mg/3ml Neb Ud) 2.5 mg HHN Q12H PRN PRN Reason: copd Aspirin (Aspirin Chewable) 81 mg PO DAILY NORAH Stop: 12/31/17 08:59 Last Admin: 11/02/17 09:14 Dose: Not Given Atorvastatin Calcium (Lipitor) 20 mg PO HS NORAH; Protocol Stop: 12/31/17 20:59 Last Admin: 11/02/17 20:16 Dose: 20 mg Bisacodyl (Dulcolax 5 Mg Ec Tab) 10 mg PO BID [facility] Stop: 12/31/17 08:59 Last Admin: 11/02/17 17:27 Dose: Not Given Levofloxacin (Levaquin Pb) 750 mg in 150 mls @ 100 mls/hr IV Q48HR NORAH Stop: 11/12/17 20:29 Last Infusion: 11/02/17 19:56 Dose: Infused Sodium Chloride (Nacl 0.9%) 1,000 mls @ 50 mls/hr IV .Q20H NORAH Stop: 12/30/17 23:14 Last Admin: 11/02/17 18:21 Dose: 50 mls/hr Magnesium Hydroxide (Milk Of Magnesia) 30 ml PO DAILY PRN PRN Reason: Constipation Stop: 12/30/17 22:59 Ondansetron HCl (Zofran) 4 mg IV Q8H PRN PRN Reason: Nausea / Vomiting Stop: 01/01/18 18:28 Last Admin: 11/02/17 18:49 Dose: 4 mg Pantoprazole Sodium (Protonix) 40 mg PO DAILY [facility] Stop: 12/31/17 08:59 Last Admin: 11/02/17 09:14 Dose: Not Given Sertraline HCl (Zoloft) 50 mg PO HS [facility]; Protocol Stop: 12/31/17 20:59 Last Admin: 11/02/17 20:15 Dose: 50 mg Activity: As Tolerated Discharge Diet: 2 Gram Sodium Consults and Follow-Up: Ben De Souza [Primary Care Provider] - Instructions: Leukocytosis, Urinary Tract Infection, Dehydration, Adult
[2017-11-03] MEDS: Pantoprazole 40 mg EC Tab PO SCH (10:09)
[2017-11-03] MEDS: Multivitamin w/ Minerals Tab PO SCH (10:09)
[2017-11-03] MEDS: Aspirin 81mg Chewable Tab PO SCH (10:09)
--- NOTE | 2017-11-03 11:08 | Psychiatric Evaluation ---
DATE OF SERVICE: 11/03/2017 PSYCHIATRIC CONSULTATION PHYSICIAN REQUESTING CONSULTATION: Dr. De Souza. REASON FOR CONSULTATION: Increased confusion and agitation. HISTORY OF PRESENT ILLNESS: Chart is reviewed. The patient is interviewed: Staff was spoken to. The [facility] and has been brought over here for confusion and UTI. The patient is at this time agitated and a psychiatric consultation is called to address the issue of the agitation and confusion. Chart is reviewed. The patient is interviewed. During the interview, the patient is noted to be drowsy and is stating that she is okay and she has been having some problem with the urination. The patient has been not presenting with any threats to harm self or others during the evaluation. No psychotic symptoms are noted. Review of the chart indicated that the patient has been on Zoloft 50 mg and is able to tolerate. PAST PSYCHIATRIC HISTORY: The patient is reported to have been hospitalized in the past and the patient was here in 2015. SOCIAL HISTORY: The [facility] is a [facility]. SUBSTANCE ABUSE HISTORY: None. PHYSICAL OR SEXUAL ABUSE HISTORY: None. LEGAL PROBLEMS: None at this time. STRENGTHS AND ASSETS: The patient is motivated. MENTAL STATUS EXAMINATION: The patient is a 77-year-old moderately obese, superficially cooperative. Eye contact is fair. Mood is noted to be irritable. Affect is constricted. Insight and judgment is noted to be fair at this time. Impulse control is also noted to be fair. The patient is not presenting with any threats to harm self or others. The patient, however, has been willing to comply with the treatment. No side effects to the medications are noted from the Zoloft. DIAGNOSTIC IMPRESSION: Major depressive disorder, recurrent and moderate. PLAN: To continue the patient with Zoloft and encouraged the patient to verbalize the concerns rather than to act out. Once stabilized, the patient is going to be discharged to [facility] to be followed up on an outpatient basis. [facility]# [id number]
--- NOTE | 2017-11-03 13:00 | Diagnostic Imaging Report ---
Abdominal ultrasound HISTORY: Vomiting Exam is limited due to patient's size, body habitus, and bowel gas. No focal hepatic lesions are seen. The exam of the gallbladder demonstrates contraction. Low-level intraluminal echoes are seen. Punctate echogenic foci appear along the gallbladder wall. Changes associated with cholesterol polyps or small calculi cannot be excluded. No biliary dilatation (common bile duct is 4 mm). The pancreas cannot be seen due to bowel gas. The kidneys are normal bilaterally. No other retroperitoneal or intra-abdominal abnormalities. IMPRESSION: 1. Limited exam due to patient size, body habitus, and bowel gas. 2. Somewhat contracted gallbladder with low-level intraluminal echoes and punctate echogenic foci along the wall. If the patient is fasting, the contracted appearance suggests gallbladder disease. Associated changes may be related to cholesterol polyps or small calculi. If necessary, a follow-up radionuclide biliary scan (HIDA scan) would provide for further assessment of gallbladder function.
[2017-11-03] MEDS ORDERED: Levofloxacin 750mg/150mL 750 MG/150 ML BAG IV SCH (21:00)
== END 2017-11-03 15:40 | DRG 871 ==
LOC: ER 16:46 → MSI 20:53
PROVIDERS: ADMIT General Practice; ATTEND General Practice
DX: A41.9 Sepsis, unspecified organism (principal); G93.41 Metabolic encephalopathy; N39.0 Urinary tract infection, site not specified; E87.1 Hypo-osmolality and hyponatremia; F33.1 Major depressive disorder, recurrent, moderate; I10 Essential (primary) hypertension; J44.9 Chronic obstructive pulmonary disease, unspecified; E78.5 Hyperlipidemia, unspecified; M19.90 Unspecified osteoarthritis, unspecified site; F03.90 Unspecified dementia, unspecified severity, without behavioral disturbance, psychotic disturbance, mood disturbance, and anxiety; E86.0 Dehydration; I25.10 Atherosclerotic heart disease of native coronary artery without angina pectoris; F20.9 Schizophrenia, unspecified; Z88.0 Allergy status to penicillin; Z88.5 Allergy status to narcotic agent; Z79.82 Long term (current) use of aspirin; Z88.1 Allergy status to other antibiotic agents; Z82.49 Family history of ischemic heart disease and other diseases of the circulatory system
CPT/HCPCS: 36415-UA; 71045-TC; 76700-TC; 80053-TC; 81001-TC; 82550-TC; 83605; 84484-TC; 85025-TC; 85610-TC; 85730-TC; 93005; 94640; 94760; J1956; J2405; J7030; J7613; Z7610

== ENCOUNTER 2018-02-02 17:21 | Inpatient (IN) | payer MEDICARE, MEDICAID ==
[2018-02-02 17:45] LABS: % EOSINOPHILS 2.3 % (0.0-5.0); % LYMPHOCYTES 24.7 % (20.0-50.0); % MONOCYTES 8.6 % (2.0-10.0); % NEUTROPHILS 63.4 % (40.0-80.0); BASOPHILE ABSOLUTE 0.1 Th/cumm (0-0.2); EOSINOPHILE ABSOLUTE 0.1 Th/cmm (0.1-0.4); HEMATOCRIT 34.1 % (41.0-60); HEMOGLOBIN 11.1 gm/dL (12-16); LYMPHOCYTE ABSOLUTE 1.5 Th/cmm (1.5-3.0); MEAN CELL VOLUME 80.9 fl (81-100); MEAN CORPUSCULAR HEMOGLOBIN 26.3 pg (27.0-31.0); MEAN CORPUSCULAR HGB CONC 32.5 pg (28.0-36.0); MEAN PLATELET VOLUME 8.6 fl; MONOCYTE ABSOLUTE 0.5 Th/cmm (0.3-1.0); NEUTROPHILE ABSOLUTE 3.8 Th/cmm (1.8-8.0); PLATELET COUNT 240 Th/cmm (150-400); RED BLOOD COUNT 4.21 Mil/cmm (3.80-5.20); RED CELL DISTRIBUTION WIDTH 16.6 % (11.5-20.0)
[2018-02-02 18:01] LABS: ALB/GLOB RATIO 1.1 (1.0-1.8); ALBUMIN 3.4 gm/dL (3.7-5.3); ALKALINE PHOSPHATASE 63 U/L (34-104); BILIRUBIN,TOTAL 0.8 mg/dL (0.3-1.0); BUN - UREA NITROGEN 14 mg/dL (7-25); CALCIUM SERUM 9.7 mg/dL (8.6-10.3); CARBON DIOXIDE 24.8 mEq/L (21.0-31.0); CHLORIDE 104 mEq/L (98-107); GLUCOSE 97 mg/dL (70-105); PHOSPHOROUS 3.1 mg/dL (2.5-5.0); POTASSIUM SERUM 3.8 mEq/L (3.5-5.1); SGOT 16 U/L (13-39); SGPT/ALT 12 U/L (7-52); SODIUM SERUM 138 mEq/L (136-145); TOTAL PROTEIN,SERUM 6.6 gm/dL (6.0-8.3)
[2018-02-02 18:27] LABS: URINE SOURCE CLEAN C
[2018-02-02 18:35] LABS: URINE BILIRUBIN NEGATIVE (NEGATIVE); URINE BLOOD SMALL (NEGATIVE); URINE GLUCOSE (UA) NEGATIVE (NEGATIVE); URINE KETONE NEGATIVE (NEGATIVE); URINE LEUKOCYTE ESTERASE LARGE (NEGATIVE); URINE MICROSCOPIC INDICATED? YES; URINE NITRATE POSITIVE (NEGATIVE); URINE PH 5.5 (4.6 - 8.0); URINE PROTEIN NEGATIVE (NEGATIVE); URINE UROBILINOGEN 0.2 E.U./dL (0.2 - 1.0)
[2018-02-02 18:41] LABS: URINE CLARITY HAZY (CLEAR); URINE COLOR YELLOW
[2018-02-02 18:57] LABS: URINE BACTERIA 3+ /hpf (NONE SEEN); URINE EPITHELIAL CELLS FEW /lpf (FEW)
[2018-02-02] MEDS ORDERED: Sulfamethoxazole/TMP 800/160mg Tab PO ONE (19:11)
[2018-02-02] MEDS ORDERED: Sulfamethoxazole/TMP 800/160mg Tab ONE (19:14)
--- NOTE | 2018-02-02 19:15 | ED Physician Chart ---
ED Chief Complaint/HPI - Patient Information Date Seen:: 02/02/18 Time Seen:: 17:52 Chief Complaint:: agitation and noncompliance History of Present Illness:: agitation and noncompliance Allergies:: Allergies Allergy/AdvReac Type Severity Reaction Status Date / Time codeine AdvReac Verified 08/26/15 18:25 Penicillins [PCN] AdvReac Verified 08/26/15 18:25 tetracycline AdvReac Verified 08/26/15 18:26 Vitals:: Vital Signs - 8 hr 02/02/18 17:52 Temp 98.5 F HR 97 RR 18 BP 126/50 O2 Sat % 100 Historian:: Medical Records Review:: Nurse's Note Reviewed, Transfer documents Reviewed ED Review of Systems - Review of Systems General/Constitutional: No fever, No chills, No weight loss, No weakness, No diaphoresis, No edema, No loss of appetite Skin: No skin lesions, No rash, No bruising Head: No headache, No light-headedness Eyes: No loss of vision, No pain, No diplopia ENT: No earache, No nasal drainage, No sore throat, No tinnitus Neck: No neck pain, No swelling, No thyromegaly, No stiffness, No mass noted Cardio Vascular: No chest pain, No palpitations, No PND, No orthopnea, No edema Pulmonary: No SOB, No cough, No sputum, No wheezing GI: No nausea, No vomiting, No diarrhea, No pain, No melena, No hematochezia, No constipation, No hematemesis G/U: No dysuria, No frequency, No hematuria Musculoskeletal: No bone or joint pain, No back pain, No muscle pain Endocrine: No polyuria, No polydipsia Psychiatric: No prior psych history, No depression, No anxiety, No suicidal ideation, No homicidal ideation, No auditory hallucination, No visual hallucination, Other (agitation and noncompliance) Hematopoietic: No bruising, No lymphadenopathy Allergic/Immuno: No urticaria, No angioedema Neurological: No syncope, No focal symptoms, No weakness, No paresthesia, No headache, No seizure, No dizziness, No confusion, No vertigo ED Past Medical History - Past Medical History Obtainable: No Past Medical History: HTN, Asthma/COPD, Dyslipidemia, PUD/GERD, Seizures Psychiatricy History: Schizophrenia, Dementia Family Medical History - Family Member Mother History Unknown: Yes Ethnicity: Living Status: Still Living Hx Family Cancer: No Hx Family Coronary Artery Disease: Yes Hx Family Congestive Heart Failure: No Hx Family Hypertension: Yes Hx Family Stroke: No Hx Family Diabetes: No Hx Family Seizures: No Hx Family Dementia: No Hx Family AIDS: No Hx Family HIV: No Hx Family COPD: No Hx Family Hepatitis: No Hx Family Psychiatric Problems: No Hx Family Tuberculosis: No ED Physical Exam - Physical Examination General/Constitutional: Awake, Well-developed, well-nourished, Alert, No distress, GCS 15, Non-toxic appearing, Ambulatory Other Gen/Cons comments:: overweight Head: Atraumatic Eyes: Lids, conjuctiva normal, PERRL, EOMI Skin: Nl inspection, No rash, No skin lesions, No ecchymosis, Well hydrated, No lymphadenopathy ENMT: External ears, nose nl, Nasal exam nl, Lips, teeth, gums nl Neck: Nontender, No nuchal rigidity, No stridor Respiratory: Nl effort/Exclusion, Clear to Auscultation, No Wheeze/Rhonchi/Rales Cardio Vascular: RRR, No murmur, gallop, rubs, NL S1 S2 GI: No tenderness/rebounding/guarding, No organomegaly, No hernia, Normal BS's, Nondistended, No mass/bruits, No McBurney tenderness : No CVA tenderness Extremities: No tenderness or effusion, Full ROM, No edema Neuro/Psych: Mood normal, No focal deficits Misc: Normal back ED Labs/Radiology/EKG Results - Lab Results Results: Laboratory Tests 02/02/18 02/02/18 02/02/18 17:40 17:40 17:40 WBC 6.0 RBC 4.21 Hgb 11.1 L Hct 34.1 L MCV 80.9 L MCH 26.3 L MCHC Differential 32.5 RDW 16.6 Plt Count 240 MPV 8.6 Neutrophils % 63.4 Lymphocytes % 24.7 Monocytes % 8.6 Eosinophils % 2.3 Basophils % 1.0 Sodium 138 Potassium 3.8 Chloride 104 Carbon Dioxide 24.8 Anion Gap 13.0 BUN 14 Creatinine 1.0 Est GFR ( Amer) TNP Est GFR (Non-Af Amer) TNP BUN/Creatinine Ratio 14.0 Glucose 97 Calcium 9.7 Phosphorus 3.1 Magnesium 2.0 Total Bilirubin 0.8 AST 16 ALT 12 Alkaline Phosphatase 63 Total Protein 6.6 Albumin 3.4 L Globulin 3.2 Albumin/Globulin Ratio 1.1 TSH 1.99 Urine Source Urine Color Urine Clarity Urine pH Ur Specific [place] Urine Protein Urine Glucose (UA) Urine Ketones Urine Blood Urine Nitrate Urine Bilirubin Urine Urobilinogen Ur Leukocyte Esterase Urine RBC Urine WBC Ur Epithelial Cells Calcium Oxalate Crystal Urine Bacteria 02/02/18 18:26 WBC RBC Hgb Hct MCV MCH MCHC Differential RDW Plt Count MPV Neutrophils % Lymphocytes % Monocytes % Eosinophils % Basophils % Sodium Potassium Chloride Carbon Dioxide Anion Gap BUN Creatinine Est GFR ( Amer) Est GFR (Non-Af Amer) BUN/Creatinine Ratio Glucose Calcium Phosphorus Magnesium Total Bilirubin AST ALT Alkaline Phosphatase Total Protein Albumin Globulin Albumin/Globulin Ratio TSH Urine Source CLEAN C Urine Color YELLOW Urine Clarity HAZY Urine pH 5.5 Ur Specific [place] 1.010 Urine Protein NEGATIVE Urine Glucose (UA) NEGATIVE Urine Ketones NEGATIVE Urine Blood SMALL H Urine Nitrate POSITIVE H Urine Bilirubin NEGATIVE Urine Urobilinogen 0.2 Ur Leukocyte Esterase LARGE H Urine RBC 2-5 Urine WBC 6-10 H Ur Epithelial Cells FEW Calcium Oxalate Crystal MANY Urine Bacteria 3+ H ED Assessment - Assessment General Assessment: patient ate dinner. SHE IS CLEARED FROM A GEROPSYCH STANDPOINT EXCEPT FOR THE FOLLOWING: SHE HAS ANEMIA AND SHE HAS A URINARY TRACT INFECTION THAT SHE BE TREATED ON THE GEROPSYCH MARSHALL. ED Septic Shock - . Is Septic Shock (SBP<90, OR Lactate>4 mmol\L) present?: No - <6hrs of presentation: Vital Signs: Vital Signs - 8 hr 02/02/18 17:52 Temp 98.5 F HR 97 RR 18 BP 126/50 O2 Sat % 100 ED Reassessment (Disposition) - Reassessment Reassessment Condition:: Unchanged - Diagnosis Diagnosis:: Agitation Noncompliance Urinary tract infection Anemia - Aftercare/Follow up Instructions Notes:: SHE IS CLEARED FROM A GEROPSYCH STANDPOINT EXCEPT FOR THE FOLLOWING: SHE HAS ANEMIA AND SHE HAS A URINARY TRACT INFECTION THAT SHE BE TREATED ON THE GEROPSYCH MARSHALL. - Patient Disposition Discharge/Transfer:: Acute Care w/in this hosp Admitted to:: [facility] Admitting Medical Physician:: Ben De Souza Admitting Psych Physician:: Aldo Velazquez Condition at Disposition:: Stable, Unchanged
[2018-02-02] MEDS ORDERED: Albuterol Nebulizer 2.5mg/3mL HHN PRN (23:15)
[2018-02-02] MEDS ORDERED: Non-Formulary Item 1 EA (Albuterol Sulfate [Proair Respiclick] 2 PUFF) IH PRN (23:15)
[2018-02-02] MEDS ORDERED: Magnesium Hydroxide (MOM) 30 mL UDC PO PRN (23:18)
[2018-02-03 01:36] VITALS: BP 126/66
[2018-02-03 07:22] LABS: CHOLESTEROL 165 mg/dL (<200); HDL -HIGH DENSITY LIPOPROTEIN 56 mg/dL (23-92); TRIGLYCERIDES 131 mg/dL (<150)
[2018-02-03] MEDS ORDERED: Non-Formulary Item 1 EA (Omeprazole [Omeprazole] 20 MG) PO SCH (09:00)
[2018-02-03] MEDS ORDERED: Non-Formulary Item 1 EA (Cranberry Fruit [Cranberry] 450 MG) PO SCH (09:00)
[2018-02-03] MEDS ORDERED: CYCLOSPORINE OP SCH (09:00)
[2018-02-03] MEDS ORDERED: Non-Formulary Item 1 EA (Potassium Chloride [Klor-Con 10] 1 TAB) PO SCH (09:00)
[2018-02-03] MEDS: Multivitamin w/ Minerals Tab PO SCH (09:26)
[2018-02-03] MEDS: Calcium Carb/Vit D 500 mg/200 U Tab PO SCH (09:27)
[2018-02-03] MEDS: Ferrous Sulfate 325 MG TAB PO SCH (09:27)
[2018-02-03] MEDS: Aspirin 81mg Chewable Tab PO SCH (09:27)
[2018-02-03] MEDS: Potassium Chloride 10 mEq ER Tab PO SCH (09:28)
--- NOTE | 2018-02-03 11:07 | History and Physical ---
History of Present Illness - HPI Chief Complaint: Delusional thinking and increased in agitation. HPI: This is a patient that I follow in a SNF, I received a call that patient has alfredo delusional and aggressive, order to transfer patient to ER was done. In ER UTI was found. Vital Signs: Last Vital Signs Temp 97.6 F 02/03/18 06:09 Pulse 82 02/03/18 07:11 Resp 18 02/03/18 07:11 BP 140/72 02/03/18 06:09 Pulse Ox 95 02/03/18 07:11 Past Medical History Cardiovascular: Report: HTN Pulmonary: Report: COPD [employer]: Report: Dementia GI: Report: No Pertinent Hx Psych: Report: Schizophrenia Musculoskeletal: Report: No Pertinent Hx Rheumatologic: Report: No pertinent Hx Infectious Disease: Report: No Pertinent Hx Renal/: Report: No Pertinent Hx Endocrine: Report: No Pertinent Hx Dermatology: Report: No Pertinent Hx - Past Surgical History Past Surgical History: No pertinent Hx Family Medical History - Family Member Mother History Unknown: Yes Ethnicity: Living Status: Unknown Hx Family Cancer: No Hx Family Coronary Artery Disease: Yes Hx Family Congestive Heart Failure: No Hx Family Hypertension: Yes Hx Family Stroke: No Hx Family Diabetes: No Hx Family Seizures: No Hx Family Dementia: No Hx Family AIDS: No Hx Family HIV: No Hx Family COPD: No Hx Family Hepatitis: No Hx Family Psychiatric Problems: No Hx Family Tuberculosis: No Social History Smoke: No Alcohol: None Drugs: None Lives: Long-Term Domestic Violence: Negative - Medications Home Medications: Home Medication Medication Instructions Recorded Type Aspirin [Aspirin Chewable] 81 mg PO DAILY #0 ctb 01/25/16 Rx Bisacodyl [Dulcolax 5 Mg Ec Tab] 10 mg PO BID #0 ect 01/25/16 Rx Cyanocobalamin [Vitamin B12] 1,000 mcg PO DAILY #0 tab 01/25/16 Rx Magnesium Hydroxide [Milk of 30 ml PO DAILY PRN #0 udc 01/25/16 Rx Magnesia] Multivitamin w/ Minerals 1 tab PO DAILY #0 tab 01/25/16 Rx [Theragran M] Acetaminophen [Tylenol] 650 mg PO Q4HR PRN 10/31/17 History Albuterol Sulfate [Proair 2 puff IH Q12H PRN 10/31/17 History Respiclick] Atorvastatin Calcium [Lipitor] 20 mg PO HS 10/31/17 History Calcium Carbonate 1,000 mg PO Q6H PRN 10/31/17 History Calcium Carbonate/Vitamin D3 1 tab PO DAILY 10/31/17 History [Calcium 500-Vit D3 200 Caplet] Clonidine HCl [Catapres] 0.1 mg PO Q8H PRN 10/31/17 History Cranberry Fruit [Cranberry] 450 mg PO BID 10/31/17 History Cyclosporine [Restasis] 1 drop OP BID 10/31/17 History Ferrous Sulfate [Iron] 325 mg PO DAILY 10/31/17 History Omeprazole 20 mg PO DAILY 10/31/17 History Potassium Chloride [Klor-Con 10] 1 tab PO DAILY 10/31/17 History Albuterol Nebulizer 2.5mg/3mL 2.5 mg HHN Q4HRT PRN 02/02/18 History [Albuterol Neb UD*] Docusate Sodium [Colace] 200 mg PO DAILY 02/02/18 History Melatonin 9 mg PO HS 02/02/18 History - Allergies Allergies/Adverse Reactions: Allergies Allergy/AdvReac Type Severity Reaction Status Date / Time codeine AdvReac Verified 08/26/15 18:25 Penicillins [PCN] AdvReac Verified 08/26/15 18:25 tetracycline AdvReac Verified 08/26/15 18:26 Review of Systems - Review of Systems Constitutional: Report: No Significant Eyes: Report: No Significant ENT: Report: No Significant Respiratory: Report: No Significant Cardiovascular: Report: No Significant Gastrointestinal: Report: No Significant Genitourinary: Report: No Significant Musculoskeletal: Report: No Significant Skin: Report: No Significant Neurological: Report: No Significant Physical Exam - Physical Exam HEENT: Report: Ears Nose Throat within normal limits Neck: Report: Within normal limits Cardiovascular Systems: Report: Regular, Rate and Rhythm Respiratory: Report: Breath Sounds are within normal limits Abdomen: Report: Non-tender to palpation Back: Report: Inspection of back is within normal limits. Extremities: Report: Non-tender to palpation. Skin: Report: Color of skin is within normal limits Neuro/Psych: Report: Disoriented to name time or place - Lab Results All Lab Results last 24 hours: Laboratory Results - last 24 hr 02/02/18 02/02/18 02/02/18 17:40 17:40 17:40 WBC 6.0 RBC 4.21 Hgb 11.1 L Hct 34.1 L MCV 80.9 L MCH 26.3 L MCHC Differential 32.5 RDW 16.6 Plt Count 240 MPV 8.6 Neutrophils % 63.4 Lymphocytes % 24.7 Monocytes % 8.6 Eosinophils % 2.3 Basophils % 1.0 Sodium 138 Potassium 3.8 Chloride 104 Carbon Dioxide 24.8 Anion Gap 13.0 BUN 14 Creatinine 1.0 Est GFR ( Amer) TNP Est GFR (Non-Af Amer) TNP BUN/Creatinine Ratio 14.0 Glucose 97 Calcium 9.7 Phosphorus 3.1 Magnesium 2.0 Total Bilirubin 0.8 AST 16 ALT 12 Alkaline Phosphatase 63 Total Protein 6.6 Albumin 3.4 L Globulin 3.2 Albumin/Globulin Ratio 1.1 Triglycerides Cholesterol LDL Cholesterol Direct HDL Cholesterol TSH 1.99 Urine Source Urine Color Urine Clarity Urine pH Ur Specific [place] Urine Protein Urine Glucose (UA) Urine Ketones Urine Blood Urine Nitrate Urine Bilirubin Urine Urobilinogen Ur Leukocyte Esterase Urine RBC Urine WBC Ur Epithelial Cells Calcium Oxalate Crystal Urine Bacteria 02/02/18 02/03/18 18:26 06:57 WBC RBC Hgb Hct MCV MCH MCHC Differential RDW Plt Count MPV Neutrophils % Lymphocytes % Monocytes % Eosinophils % Basophils % Sodium Potassium Chloride Carbon Dioxide Anion Gap BUN Creatinine Est GFR ( Amer) Est GFR (Non-Af Amer) BUN/Creatinine Ratio Glucose Calcium Phosphorus Magnesium Total Bilirubin AST ALT Alkaline Phosphatase Total Protein Albumin Globulin Albumin/Globulin Ratio Triglycerides 131 Cholesterol 165 LDL Cholesterol Direct 100 HDL Cholesterol 56 TSH Urine Source CLEAN C Urine Color YELLOW Urine Clarity HAZY Urine pH 5.5 Ur Specific [place] 1.010 Urine Protein NEGATIVE Urine Glucose (UA) NEGATIVE Urine Ketones NEGATIVE Urine Blood SMALL H Urine Nitrate POSITIVE H Urine Bilirubin NEGATIVE Urine Urobilinogen 0.2 Ur Leukocyte Esterase LARGE H Urine RBC 2-5 Urine WBC 6-10 H Ur Epithelial Cells FEW Calcium Oxalate Crystal MANY Urine Bacteria 3+ H - Assessment Assessment: Current Active Problems Problem Status Onset AGITATION AND MEDICAL NONCOMPLIANCE Acute Patient is awake, alert, calm, in no acute distress. Dx: Increased in agitation , UTI, HTN, COPD, Dementia, Schizophrenia. - Plan Plan: Patient is follow by Psychiatry, and continue with SNF, AB po is started. Will continue to monitor.
--- NOTE | 2018-02-03 13:54 | History & Physical ---
ADMIT DATE: 02/02/2018 IDENTIFYING INFORMATION: The patient is a 78-year-old female. CHIEF COMPLAINT: "Not sure why." HISTORY OF PRESENT ILLNESS: The patient was referred because of increasing delusional thinking, agitation. She came from [facility]. The patient reported that they told her to come here, so she can see Dr. De Souza here, which is make sense. She is delusional, aggressive. The patient is with a history of hypertension, COPD, dementia, schizophrenia. PAST PSYCHIATRIC HISTORY: Dementia and schizophrenia. MEDICAL HISTORY: THE PATIENT IS ALLERGIC CODEINE, PENICILLIN, TETRACYCLINE. MEDICATIONS: The patient was restarted on her medications, albuterol inhaler, aspirin, atorvastatin, clonidine as needed, vitamin B12, iron, multivitamin, and omeprazole. FAMILY AND SOCIAL HISTORY: The patient reported that she has 2 daughters. She has been for years that she has been living at [facility]. Denies family history of psychotic disorder; however, she is a poor historian and denies prior suicide attempt. MENTAL STATUS EXAMINATION: Appropriately dressed, appropriately groomed. She believes she is 77 years of age, unable to tell me the ages of her girls, what is the date, not sure why she is in this facility. She believes because to see Dr. De Souza. She denies any current intent to harm herself or anybody. Denies any visual hallucinations and paranoia. She is demented, confused, unable to tell me the name of the current vice president [employer], and why she is here, unable to tell me her proper age. When asked about hallucination, she denied that she is a poor historian. She denies any intent to harm herself and she believes she is sleeping well, eating well. Her insight about her illness is poor, does not realize why she is here, why she has a problem. Judgment is poor with her behavior. IMPRESSION: History of schizophrenia, possible bipolar disorder. Also, we will initiate her on Aricept. We will do group therapy, milieu therapy, and individual therapy. DISCHARGE CRITERIA: Decreasing agitation, aggressive behavior. After discharge, outpatient. MEDICAL DIAGNOSES: 1. Hyperlipidemia. 2. Hypertension. 3. B12 deficiency. 4. Anemia. INITIAL TREATMENT PLAN: The patient was started on Depakote. We will do group therapy, milieu therapy, and individual therapy. ESTIMATED LENGTH OF STAY: 7 days. DISCHARGE CRITERIA: Decreasing agitation, no longer aggressive. After discharge, outpatient treatment. [facility]# [id number]
[2018-02-03] MEDS: Sulfamethoxazole/TMP 800/160mg Tab PO SCH (17:34)
[2018-02-03] MEDS: Atorvastatin Calcium 10 MG TAB PO SCH (20:48)
[2018-02-03] MEDS ORDERED: Non-Formulary Item 1 EA (Atorvastatin Calcium [Lipitor] 20 MG) PO SCH (21:00)
[2018-02-03] MEDS ORDERED: Non-Formulary Item 1 EA (Melatonin [Melatonin] 9 MG) PO SCH (21:00)
[2018-02-04] MEDS: Ferrous Sulfate 325 MG TAB PO SCH (09:30)
[2018-02-04] MEDS: Sulfamethoxazole/TMP 800/160mg Tab PO SCH (09:30)
[2018-02-04] MEDS: Multivitamin w/ Minerals Tab PO SCH (09:30)
[2018-02-04] MEDS: Potassium Chloride 10 mEq ER Tab PO SCH (09:30)
[2018-02-04] MEDS: Calcium Carb/Vit D 500 mg/200 U Tab PO SCH (09:30)
[2018-02-04] MEDS: Aspirin 81mg Chewable Tab PO SCH (09:31)
--- NOTE | 2018-02-04 10:20 | General Progress Note ---
Subjective - Review of Systems Service Date: 02/04/18 Subjective: I am OK Objective - Results Result Diagrams: 02/02/18 17:40 02/02/18 17:40 Recent Labs: Laboratory Last Values WBC 6.0 Th/cmm (4.8-10.8) 02/02/18 17:40 RBC 4.21 Mil/cmm (3.80-5.20) 02/02/18 17:40 Hgb 11.1 gm/dL (12-16) L 02/02/18 17:40 Hct 34.1 % (41.0-60) L 02/02/18 17:40 MCV 80.9 fl (81-100) L 02/02/18 17:40 MCH 26.3 pg (27.0-31.0) L 02/02/18 17:40 MCHC Differential 32.5 pg (28.0-36.0) 02/02/18 17:40 RDW 16.6 % (11.5-20.0) 02/02/18 17:40 Plt Count 240 Th/cmm (150-400) 02/02/18 17:40 MPV 8.6 fl 02/02/18 17:40 Neutrophils % 63.4 % (40.0-80.0) 02/02/18 17:40 Lymphocytes % 24.7 % (20.0-50.0) 02/02/18 17:40 Monocytes % 8.6 % (2.0-10.0) 02/02/18 17:40 Eosinophils % 2.3 % (0.0-5.0) 02/02/18 17:40 Basophils % 1.0 % (0.0-2.0) 02/02/18 17:40 Sodium 138 mEq/L (136-145) 02/02/18 17:40 Potassium 3.8 mEq/L (3.5-5.1) 02/02/18 17:40 Chloride 104 mEq/L (98-107) 02/02/18 17:40 Carbon Dioxide 24.8 mEq/L (21.0-31.0) 02/02/18 17:40 Anion Gap 13.0 (7.0-16.0) 02/02/18 17:40 BUN 14 mg/dL (7-25) 02/02/18 17:40 Creatinine 1.0 mg/dL (0.6-1.2) 02/02/18 17:40 Est GFR ( Amer) TNP 02/02/18 17:40 Est GFR (Non-Af Amer) TNP 02/02/18 17:40 BUN/Creatinine Ratio 14.0 02/02/18 17:40 Glucose 97 mg/dL (70-105) 02/02/18 17:40 Calcium 9.7 mg/dL (8.6-10.3) 02/02/18 17:40 Phosphorus 3.1 mg/dL (2.5-5.0) 02/02/18 17:40 Magnesium 2.0 mg/dL (1.9-2.7) 02/02/18 17:40 Total Bilirubin 0.8 mg/dL (0.3-1.0) 02/02/18 17:40 AST 16 U/L (13-39) 02/02/18 17:40 ALT 12 U/L (7-52) 02/02/18 17:40 Alkaline Phosphatase 63 U/L (34-104) 02/02/18 17:40 Total Protein 6.6 gm/dL (6.0-8.3) 02/02/18 17:40 Albumin 3.4 gm/dL (3.7-5.3) L 02/02/18 17:40 Globulin 3.2 gm/dL 02/02/18 17:40 Albumin/Globulin Ratio 1.1 (1.0-1.8) 02/02/18 17:40 Triglycerides 131 mg/dL (<150) 02/03/18 06:57 Cholesterol 165 mg/dL (<200) 02/03/18 06:57 LDL Cholesterol Direct 100 mg/dL (75-193) 02/03/18 06:57 HDL Cholesterol 56 mg/dL (23-92) 02/03/18 06:57 TSH 1.99 uIU/ml (0.34-5.60) 02/02/18 17:40 Urine Source CLEAN C 02/02/18 18:26 Urine Color YELLOW 02/02/18 18:26 Urine Clarity HAZY (CLEAR) 02/02/18 18:26 Urine pH 5.5 (4.6 - 8.0) 18 18:26 Ur Specific [place] 1.010 (1.005-1.030) 02/02/18 18:26 Urine Protein NEGATIVE mg/dL (NEGATIVE) 02/02/18 18:26 Urine Glucose (UA) NEGATIVE mg/dL (NEGATIVE) 02/02/18 18:26 Urine Ketones NEGATIVE mg/dL (NEGATIVE) 02/02/18 18:26 Urine Blood SMALL (NEGATIVE) H 02/02/18 18:26 Urine Nitrate POSITIVE (NEGATIVE) H 02/02/18 18:26 Urine Bilirubin NEGATIVE (NEGATIVE) 02/02/18 18:26 Urine Urobilinogen 0.2 E.U./dL (0.2 - 1.0) 02/02/18 18:26 Ur Leukocyte Esterase LARGE (NEGATIVE) H 02/02/18 18:26 Urine RBC 2-5 /hpf (0-5) 02/02/18 18:26 Urine WBC 6-10 /hpf (0-5) H 02/02/18 18:26 Ur Epithelial Cells FEW /lpf (FEW) 02/02/18 18:26 Calcium Oxalate Crystal MANY /hpf 02/02/18 18:26 Urine Bacteria 3+ /hpf (NONE SEEN) H 02/02/18 18:26 - Physical Exam Vitals and I&O: Vital Signs Temp 98.2 F 02/04/18 06:26 Pulse 80 02/04/18 07:36 Resp 14 02/04/18 07:36 BP 126/70 02/04/18 06:26 Pulse Ox 95 02/04/18 07:36 Intake & Output 02/03/18 02/04/18 02/04/18 18:59 06:59 18:59 Intake Total 1400 Balance 1400 Intake: Oral 1400 Other: # Voids 4 # Bowel Movements 0 Active Medications: Current Medications Acetaminophen (Tylenol) 650 mg PO Q4HR PRN PRN Reason: Pain/temp>100 Stop: 04/03/18 23:14 Albuterol Sulfate (Albuterol 2.5mg/3ml Neb Ud) 2.5 mg HHN Q4HRT PRN PRN Reason: COPD Stop: 04/03/18 23:14 Aspirin (Aspirin Chewable) 81 mg PO DAILY [facility] Stop: 04/04/18 08:59 Last Admin: 02/04/18 09:31 Dose: 81 mg Atorvastatin Calcium (Lipitor) 20 mg PO HS [facility] Stop: 04/04/18 20:59 Last Admin: 02/03/18 20:48 Dose: Not Given Bisacodyl (Dulcolax 5 Mg Ec Tab) 10 mg PO BID [facility] Stop: 04/04/18 08:59 Last Admin: 02/04/18 09:31 Dose: 10 mg Calcium Carbonate (Os-Emilio) 500 mg PO Q6H PRN PRN Reason: Indigestion/HEARTBURN Stop: 04/03/18 23:17 Calcium/Vitamin D (Oscal W/Vitamin D) 1 tab PO DAILY [facility] Stop: 04/04/18 08:59 Last Admin: 02/04/18 09:30 Dose: 1 tab Cyanocobalamin (Vitamin B12) 1,000 mcg PO DAILY [facility] Stop: 04/04/18 08:59 Last Admin: 02/04/18 09:31 Dose: 1,000 mcg Docusate Sodium (Colace) 200 mg PO DAILY [facility] Stop: 04/04/18 08:59 Last Admin: 02/04/18 09:30 Dose: 200 mg Ferrous Sulfate (Iron) 325 mg PO DAILY [facility] Stop: 04/04/18 08:59 Last Admin: 02/04/18 09:30 Dose: 325 mg Lorazepam (Ativan) 0.5 mg PO Q4HR PRN; Protocol PRN Reason: Anxiety Stop: 03/04/18 21:34 Magnesium Hydroxide (Milk Of Magnesia) 30 ml PO DAILY PRN PRN Reason: Constipation Stop: 04/03/18 23:17 Potassium Chloride (Klor-Con) 10 meq PO DAILY [facility] Stop: 04/04/18 08:59 Last Admin: 02/04/18 09:30 Dose: 10 meq Trimethoprim/Sulfamethoxazole (Bactrim Ds) 1 tab PO BID [facility] Stop: 04/04/18 16:59 Last Admin: 02/04/18 09:30 Dose: 1 tab Valproate Sodium (Depakene) 250 mg PO BID [facility]; Protocol Stop: 04/04/18 16:59 Last Admin: 02/04/18 09:30 Dose: 250 mg Zolpidem Tartrate (Ambien) 5 mg PO HS PRN PRN Reason: Insomnia Stop: 04/03/18 22:13 General: Alert, No acute distress HEENT: Atraumatic Cardiovascular: Regular rate Lungs: Clear to auscultation Abdomen: Bowel sounds, Soft Extremities: Other (No edema) Neurological: Other (Unstable gait) Skin: Other (Warm and dry) Psych/Mental Status: Other (Confused not oriented) - Procedures Procedures: Procedures Procedure Code Date GROUP PSYCHOTHERAPY 72204 08/26/15 GROUP PSYCHOTHERAPY GZHZZZZ 08/26/15 OTHER GROUP THERAPY 94.44 06/25/14 Assessment/Plan - Problem List Patient Problems: All Active Problems AGITATION AND MEDICAL NONCOMPLIANCE (Acute) - Assessment Assessment: Current Active Problems Problem Status Onset AGITATION AND MEDICAL NONCOMPLIANCE Acute Patient is awake, alert, calm, in no acute distress. Dx: Increased in agitation , UTI, HTN, COPD, Dementia, Schizophrenia. - Plan Plan: Patient is follow by Psychiatry, and continue with SNF, AB po is started. She is started in depakote. Will continue to monitor.
--- NOTE | 2018-02-04 21:03 | Progress Notes ---
DATE: 02/04/2018 Case was discussed with staff of the patient, reviewed records. The patient continues to be unpredictable, impulsive, and delusional. She apparently has been aggressive with her doctor and staff. She is demented. She is schizophrenic. She continues to have poor insight. Unable to make safe plan for self-care. She was very hostile when I talked to her. She said according to the law, I should not be talking to her. I explained to her, she is in a psych facility and need to talk to a psychiatrist. She is impulsive, unpredictable, paranoid, and suspicious. I will be adding Abilify to her medication, discussed side effects and we will continue to work with the patient in group therapy, milieu therapy, adjust the medication as needed. JOB# [id number]
[2018-02-04] MEDS: Atorvastatin Calcium 10 MG TAB PO SCH (21:29)
--- NOTE | 2018-02-05 08:42 | General Progress Note ---
Subjective - Review of Systems Service Date: 02/05/18 Subjective: I am OK Objective - Results Result Diagrams: 02/02/18 17:40 02/02/18 17:40 Recent Labs: Laboratory Last Values WBC 6.0 Th/cmm (4.8-10.8) 02/02/18 17:40 RBC 4.21 Mil/cmm (3.80-5.20) 02/02/18 17:40 Hgb 11.1 gm/dL (12-16) L 02/02/18 17:40 Hct 34.1 % (41.0-60) L 02/02/18 17:40 MCV 80.9 fl (81-100) L 02/02/18 17:40 MCH 26.3 pg (27.0-31.0) L 02/02/18 17:40 MCHC Differential 32.5 pg (28.0-36.0) 02/02/18 17:40 RDW 16.6 % (11.5-20.0) 02/02/18 17:40 Plt Count 240 Th/cmm (150-400) 02/02/18 17:40 MPV 8.6 fl 02/02/18 17:40 Neutrophils % 63.4 % (40.0-80.0) 02/02/18 17:40 Lymphocytes % 24.7 % (20.0-50.0) 02/02/18 17:40 Monocytes % 8.6 % (2.0-10.0) 02/02/18 17:40 Eosinophils % 2.3 % (0.0-5.0) 02/02/18 17:40 Basophils % 1.0 % (0.0-2.0) 02/02/18 17:40 Sodium 138 mEq/L (136-145) 02/02/18 17:40 Potassium 3.8 mEq/L (3.5-5.1) 02/02/18 17:40 Chloride 104 mEq/L (98-107) 02/02/18 17:40 Carbon Dioxide 24.8 mEq/L (21.0-31.0) 02/02/18 17:40 Anion Gap 13.0 (7.0-16.0) 02/02/18 17:40 BUN 14 mg/dL (7-25) 02/02/18 17:40 Creatinine 1.0 mg/dL (0.6-1.2) 02/02/18 17:40 Est GFR ( Amer) TNP 02/02/18 17:40 Est GFR (Non-Af Amer) TNP 02/02/18 17:40 BUN/Creatinine Ratio 14.0 02/02/18 17:40 Glucose 97 mg/dL (70-105) 02/02/18 17:40 Calcium 9.7 mg/dL (8.6-10.3) 02/02/18 17:40 Phosphorus 3.1 mg/dL (2.5-5.0) 02/02/18 17:40 Magnesium 2.0 mg/dL (1.9-2.7) 02/02/18 17:40 Total Bilirubin 0.8 mg/dL (0.3-1.0) 02/02/18 17:40 AST 16 U/L (13-39) 02/02/18 17:40 ALT 12 U/L (7-52) 02/02/18 17:40 Alkaline Phosphatase 63 U/L (34-104) 02/02/18 17:40 Total Protein 6.6 gm/dL (6.0-8.3) 02/02/18 17:40 Albumin 3.4 gm/dL (3.7-5.3) L 02/02/18 17:40 Globulin 3.2 gm/dL 02/02/18 17:40 Albumin/Globulin Ratio 1.1 (1.0-1.8) 02/02/18 17:40 Triglycerides 131 mg/dL (<150) 02/03/18 06:57 Cholesterol 165 mg/dL (<200) 02/03/18 06:57 LDL Cholesterol Direct 100 mg/dL (75-193) 02/03/18 06:57 HDL Cholesterol 56 mg/dL (23-92) 02/03/18 06:57 TSH 1.99 uIU/ml (0.34-5.60) 02/02/18 17:40 Urine Source CLEAN C 02/02/18 18:26 Urine Color YELLOW 02/02/18 18:26 Urine Clarity HAZY (CLEAR) 02/02/18 18:26 Urine pH 5.5 (4.6 - 8.0) 18 18:26 Ur Specific [place] 1.010 (1.005-1.030) 02/02/18 18:26 Urine Protein NEGATIVE mg/dL (NEGATIVE) 02/02/18 18:26 Urine Glucose (UA) NEGATIVE mg/dL (NEGATIVE) 02/02/18 18:26 Urine Ketones NEGATIVE mg/dL (NEGATIVE) 02/02/18 18:26 Urine Blood SMALL (NEGATIVE) H 02/02/18 18:26 Urine Nitrate POSITIVE (NEGATIVE) H 02/02/18 18:26 Urine Bilirubin NEGATIVE (NEGATIVE) 02/02/18 18:26 Urine Urobilinogen 0.2 E.U./dL (0.2 - 1.0) 02/02/18 18:26 Ur Leukocyte Esterase LARGE (NEGATIVE) H 02/02/18 18:26 Urine RBC 2-5 /hpf (0-5) 02/02/18 18:26 Urine WBC 6-10 /hpf (0-5) H 02/02/18 18:26 Ur Epithelial Cells FEW /lpf (FEW) 02/02/18 18:26 Calcium Oxalate Crystal MANY /hpf 02/02/18 18:26 Urine Bacteria 3+ /hpf (NONE SEEN) H 02/02/18 18:26 - Physical Exam Vitals and I&O: Vital Signs Temp 98.3 F 02/04/18 20:00 Pulse 85 02/05/18 07:49 Resp 18 02/05/18 07:49 BP 128/60 02/04/18 20:00 Pulse Ox 94 02/05/18 07:49 Intake & Output 02/04/18 02/05/18 02/05/18 18:59 06:59 18:59 Intake Total 120 Balance 120 Intake: Oral 120 Other: # Voids 3 Active Medications: Current Medications Acetaminophen (Tylenol) 650 mg PO Q4HR PRN PRN Reason: Pain/temp>100 Stop: 04/03/18 23:14 Albuterol Sulfate (Albuterol 2.5mg/3ml Neb Ud) 2.5 mg HHN Q4HRT PRN PRN Reason: COPD Stop: 04/03/18 23:14 Aripiprazole (Abilify) 2.5 mg PO DAILY [facility]; Protocol Stop: 04/06/18 08:59 Aspirin (Aspirin Chewable) 81 mg PO DAILY [facility] Stop: 04/04/18 08:59 Last Admin: 02/04/18 09:31 Dose: 81 mg Atorvastatin Calcium (Lipitor) 20 mg PO HS [facility] Stop: 04/04/18 20:59 Last Admin: 02/04/18 21:29 Dose: 20 mg Bisacodyl (Dulcolax 5 Mg Ec Tab) 10 mg PO BID [facility] Stop: 04/04/18 08:59 Last Admin: 02/04/18 16:43 Dose: 10 mg Calcium Carbonate (Os-Emilio) 500 mg PO Q6H PRN PRN Reason: Indigestion/HEARTBURN Stop: 04/03/18 23:17 Calcium/Vitamin D (Oscal W/Vitamin D) 1 tab PO DAILY [facility] Stop: 04/04/18 08:59 Last Admin: 02/04/18 09:30 Dose: 1 tab Cyanocobalamin (Vitamin B12) 1,000 mcg PO DAILY [facility] Stop: 04/04/18 08:59 Last Admin: 02/04/18 09:31 Dose: 1,000 mcg Docusate Sodium (Colace) 200 mg PO DAILY [facility] Stop: 04/04/18 08:59 Last Admin: 02/04/18 09:30 Dose: 200 mg Ferrous Sulfate (Iron) 325 mg PO DAILY [facility] Stop: 04/04/18 08:59 Last Admin: 02/04/18 09:30 Dose: 325 mg Lorazepam (Ativan) 0.5 mg PO Q4HR PRN; Protocol PRN Reason: Anxiety Stop: 03/04/18 21:34 Last Admin: 02/05/18 01:46 Dose: 0.5 mg Magnesium Hydroxide (Milk Of Magnesia) 30 ml PO DAILY PRN PRN Reason: Constipation Stop: 04/03/18 23:17 Nitrofurantoin Macrocrystals (Macrobid) 100 mg PO BID [facility] Stop: 02/10/18 19:00 Last Admin: 02/04/18 16:43 Dose: 100 mg Potassium Chloride (Klor-Con) 10 meq PO DAILY [facility] Stop: 04/04/18 08:59 Last Admin: 02/04/18 09:30 Dose: 10 meq Valproate Sodium (Depakene) 250 mg PO BID [facility]; Protocol Stop: 04/04/18 16:59 Last Admin: 02/04/18 16:42 Dose: 250 mg Zolpidem Tartrate (Ambien) 5 mg PO HS PRN PRN Reason: Insomnia Stop: 04/03/18 22:13 Last Admin: 02/04/18 21:30 Dose: 5 mg General: Alert, No acute distress HEENT: Atraumatic Cardiovascular: Regular rate Lungs: Clear to auscultation Abdomen: Bowel sounds, Soft Extremities: Other (No edema) Neurological: Other (Unstable gait) Skin: Other (Warm and dry) Psych/Mental Status: Other (Confused not oriented) - Procedures Procedures: Procedures Procedure Code Date GROUP PSYCHOTHERAPY 33069 08/26/15 GROUP PSYCHOTHERAPY GZHZZZZ 08/26/15 OTHER GROUP THERAPY 94.44 06/25/14 Assessment/Plan - Problem List Patient Problems: All Active Problems AGITATION AND MEDICAL NONCOMPLIANCE (Acute) - Assessment Assessment: Current Active Problems Problem Status Onset AGITATION AND MEDICAL NONCOMPLIANCE Acute Patient is awake, alert, aggressive at moments, with paranoid ideas. Dx: Increased in agitation, UTI, HTN, COPD, Dementia, Schizophrenia. - Plan Plan: Patient is follow by Psychiatry, and continue with SNF, AB po is started. Will continue to monitor.
[2018-02-05] MEDS: Multivitamin w/ Minerals Tab PO SCH (09:34)
[2018-02-05] MEDS: Ferrous Sulfate 325 MG TAB PO SCH (09:34)
[2018-02-05] MEDS: Aspirin 81mg Chewable Tab PO SCH (09:34)
[2018-02-05] MEDS: Calcium Carb/Vit D 500 mg/200 U Tab PO SCH (09:34)
[2018-02-05] MEDS: Potassium Chloride 10 mEq ER Tab PO SCH (09:34)
[2018-02-05] MEDS: Atorvastatin Calcium 10 MG TAB PO SCH (20:58)
--- NOTE | 2018-02-05 23:58 | Progress Notes ---
DATE: 02/05/2018 The patient in the hospital, history of schizophrenia, delusions, poor compliance, agitation. On [id number], the patient is refusing to speak with me, upset. Staff noting she refuses medication and that she has been more compliant with treatment in regards to ADLs. Concerns for ongoing delusions, poor medication compliance, fair sleep, fair appetite, mostly withdrawn, keeps herself. MEDICATIONS: Noted. ASSESSMENT: The patient with history of schizophrenia, poor medication compliance, ongoing symptoms. I will continue to monitor. The patient may need a [place] hearing if she continues to refuse treatment. [facility]# [id number]
[2018-02-06] MEDS: Potassium Chloride 10 mEq ER Tab PO SCH (08:14)
[2018-02-06] MEDS: Calcium Carb/Vit D 500 mg/200 U Tab PO SCH (08:14)
[2018-02-06] MEDS: Ferrous Sulfate 325 MG TAB PO SCH (08:14)
[2018-02-06] MEDS: Aspirin 81mg Chewable Tab PO SCH (08:14)
[2018-02-06] MEDS: Multivitamin w/ Minerals Tab PO SCH (08:14)
--- NOTE | 2018-02-06 08:36 | General Progress Note ---
Subjective - Review of Systems Service Date: 02/06/18 Subjective: Patient refused to talk to me Objective - Results Result Diagrams: 02/02/18 17:40 02/02/18 17:40 Recent Labs: Laboratory Last Values WBC 6.0 Th/cmm (4.8-10.8) 02/02/18 17:40 RBC 4.21 Mil/cmm (3.80-5.20) 02/02/18 17:40 Hgb 11.1 gm/dL (12-16) L 02/02/18 17:40 Hct 34.1 % (41.0-60) L 02/02/18 17:40 MCV 80.9 fl (81-100) L 02/02/18 17:40 MCH 26.3 pg (27.0-31.0) L 02/02/18 17:40 MCHC Differential 32.5 pg (28.0-36.0) 02/02/18 17:40 RDW 16.6 % (11.5-20.0) 02/02/18 17:40 Plt Count 240 Th/cmm (150-400) 02/02/18 17:40 MPV 8.6 fl 02/02/18 17:40 Neutrophils % 63.4 % (40.0-80.0) 02/02/18 17:40 Lymphocytes % 24.7 % (20.0-50.0) 02/02/18 17:40 Monocytes % 8.6 % (2.0-10.0) 02/02/18 17:40 Eosinophils % 2.3 % (0.0-5.0) 02/02/18 17:40 Basophils % 1.0 % (0.0-2.0) 02/02/18 17:40 Sodium 138 mEq/L (136-145) 02/02/18 17:40 Potassium 3.8 mEq/L (3.5-5.1) 02/02/18 17:40 Chloride 104 mEq/L (98-107) 02/02/18 17:40 Carbon Dioxide 24.8 mEq/L (21.0-31.0) 02/02/18 17:40 Anion Gap 13.0 (7.0-16.0) 02/02/18 17:40 BUN 14 mg/dL (7-25) 02/02/18 17:40 Creatinine 1.0 mg/dL (0.6-1.2) 02/02/18 17:40 Est GFR ( Amer) TNP 02/02/18 17:40 Est GFR (Non-Af Amer) TNP 02/02/18 17:40 BUN/Creatinine Ratio 14.0 02/02/18 17:40 Glucose 97 mg/dL (70-105) 02/02/18 17:40 Calcium 9.7 mg/dL (8.6-10.3) 02/02/18 17:40 Phosphorus 3.1 mg/dL (2.5-5.0) 02/02/18 17:40 Magnesium 2.0 mg/dL (1.9-2.7) 02/02/18 17:40 Total Bilirubin 0.8 mg/dL (0.3-1.0) 02/02/18 17:40 AST 16 U/L (13-39) 02/02/18 17:40 ALT 12 U/L (7-52) 02/02/18 17:40 Alkaline Phosphatase 63 U/L (34-104) 02/02/18 17:40 Total Protein 6.6 gm/dL (6.0-8.3) 02/02/18 17:40 Albumin 3.4 gm/dL (3.7-5.3) L 02/02/18 17:40 Globulin 3.2 gm/dL 02/02/18 17:40 Albumin/Globulin Ratio 1.1 (1.0-1.8) 02/02/18 17:40 Triglycerides 131 mg/dL (<150) 02/03/18 06:57 Cholesterol 165 mg/dL (<200) 02/03/18 06:57 LDL Cholesterol Direct 100 mg/dL (75-193) 02/03/18 06:57 HDL Cholesterol 56 mg/dL (23-92) 02/03/18 06:57 TSH 1.99 uIU/ml (0.34-5.60) 02/02/18 17:40 Urine Source CLEAN C 02/02/18 18:26 Urine Color YELLOW 02/02/18 18:26 Urine Clarity HAZY (CLEAR) 02/02/18 18:26 Urine pH 5.5 (4.6 - 8.0) 02/02/18 18:26 Ur Specific [place] 1.010 (1.005-1.030) 02/02/18 18:26 Urine Protein NEGATIVE mg/dL (NEGATIVE) 02/02/18 18:26 Urine Glucose (UA) NEGATIVE mg/dL (NEGATIVE) 02/02/18 18:26 Urine Ketones NEGATIVE mg/dL (NEGATIVE) 02/02/18 18:26 Urine Blood SMALL (NEGATIVE) H 02/02/18 18:26 Urine Nitrate POSITIVE (NEGATIVE) H 02/02/18 18:26 Urine Bilirubin NEGATIVE (NEGATIVE) 02/02/18 18:26 Urine Urobilinogen 0.2 E.U./dL (0.2 - 1.0) 02/02/18 18:26 Ur Leukocyte Esterase LARGE (NEGATIVE) H 02/02/18 18:26 Urine RBC 2-5 /hpf (0-5) 02/02/18 18:26 Urine WBC 6-10 /hpf (0-5) H 02/02/18 18:26 Ur Epithelial Cells FEW /lpf (FEW) 02/02/18 18:26 Calcium Oxalate Crystal MANY /hpf 02/02/18 18:26 Urine Bacteria 3+ /hpf (NONE SEEN) H 02/02/18 18:26 - Physical Exam Vitals and I&O: Vital Signs Temp 97.8 F 02/06/18 06:26 Pulse 81 02/06/18 07:06 Resp 16 02/06/18 07:06 BP 113/52 02/06/18 06:26 Pulse Ox 98 02/06/18 07:06 Intake & Output 02/05/18 02/06/18 02/06/18 18:59 06:59 18:59 Intake Total 900 420 Balance 900 420 Intake: Oral 900 420 Other: # Voids 3 1 # Bowel Movements 1 0 Active Medications: Current Medications Acetaminophen (Tylenol) 650 mg PO Q4HR PRN PRN Reason: Pain/temp>100 Stop: 04/03/18 23:14 Last Admin: 02/05/18 21:07 Dose: 650 mg Albuterol Sulfate (Albuterol 2.5mg/3ml Neb Ud) 2.5 mg HHN Q4HRT PRN PRN Reason: COPD Stop: 04/03/18 23:14 Aripiprazole (Abilify) 2.5 mg PO DAILY [facility]; Protocol Stop: 04/06/18 08:59 Last Admin: 02/06/18 08:14 Dose: Not Given Aspirin (Aspirin Chewable) 81 mg PO DAILY [facility] Stop: 04/04/18 08:59 Last Admin: 02/06/18 08:14 Dose: Not Given Atorvastatin Calcium (Lipitor) 20 mg PO HS [facility] Stop: 04/04/18 20:59 Last Admin: 02/05/18 20:58 Dose: Not Given Bisacodyl (Dulcolax 5 Mg Ec Tab) 10 mg PO BID [facility] Stop: 04/04/18 08:59 Last Admin: 02/06/18 08:14 Dose: Not Given Calcium Carbonate (Os-Emilio) 500 mg PO Q6H PRN PRN Reason: Indigestion/HEARTBURN Stop: 04/03/18 23:17 Calcium/Vitamin D (Oscal W/Vitamin D) 1 tab PO DAILY [facility] Stop: 04/04/18 08:59 Last Admin: 02/06/18 08:14 Dose: Not Given Cyanocobalamin (Vitamin B12) 1,000 mcg PO DAILY [facility] Stop: 04/04/18 08:59 Last Admin: 02/06/18 08:14 Dose: Not Given Docusate Sodium (Colace) 200 mg PO DAILY [facility] Stop: 04/04/18 08:59 Last Admin: 02/06/18 08:14 Dose: Not Given Ferrous Sulfate (Iron) 325 mg PO DAILY [facility] Stop: 04/04/18 08:59 Last Admin: 02/06/18 08:14 Dose: Not Given Lorazepam (Ativan) 0.5 mg PO Q4HR PRN; Protocol PRN Reason: Anxiety Stop: 03/04/18 21:34 Last Admin: 02/05/18 01:46 Dose: 0.5 mg Magnesium Hydroxide (Milk Of Magnesia) 30 ml PO DAILY PRN PRN Reason: Constipation Stop: 04/03/18 23:17 Nitrofurantoin Macrocrystals (Macrobid) 100 mg PO BID [facility] Stop: 02/10/18 19:00 Last Admin: 02/06/18 08:14 Dose: Not Given Potassium Chloride (Klor-Con) 10 meq PO DAILY [facility] Stop: 04/04/18 08:59 Last Admin: 02/06/18 08:14 Dose: Not Given Valproate Sodium (Depakene) 250 mg PO BID [facility]; Protocol Stop: 04/04/18 16:59 Last Admin: 02/06/18 08:14 Dose: Not Given Zolpidem Tartrate (Ambien) 5 mg PO HS PRN PRN Reason: Insomnia Stop: 04/03/18 22:13 Last Admin: 02/04/18 21:30 Dose: 5 mg General: Alert, No acute distress HEENT: Atraumatic Cardiovascular: Regular rate Lungs: Clear to auscultation Abdomen: Bowel sounds, Soft Extremities: Other (No edema) Neurological: Other (Unstable gait) Skin: Other (Warm and dry) Psych/Mental Status: Other (Confused not oriented) - Procedures Procedures: Procedures Procedure Code Date GROUP PSYCHOTHERAPY 89613 08/26/15 GROUP PSYCHOTHERAPY GZHZZZZ 08/26/15 OTHER GROUP THERAPY 94.44 06/25/14 Assessment/Plan - Problem List Patient Problems: All Active Problems AGITATION AND MEDICAL NONCOMPLIANCE (Acute) - Assessment Assessment: Current Active Problems Problem Status Onset AGITATION AND MEDICAL NONCOMPLIANCE Acute Patient is awake, alert, aggressive at moments, with paranoid ideas. Dx: Increased in agitation, UTI, HTN, COPD, Dementia, Schizophrenia. - Plan Plan: Patient is follow by Psychiatry, and continue with SNF, AB po is started. Will continue to monitor.
[2018-02-06] MEDS: Thioridazine Hydrochloride 25 MG TAB PO SCH (21:37)
[2018-02-06] MEDS: Atorvastatin Calcium 10 MG TAB PO SCH (21:37)
--- NOTE | 2018-02-07 02:51 | Progress Notes ---
DATE: 02/06/2018 SUBJECTIVE: The patient is currently in the hospital, noted to be agitated, aggressive, hostile, refusing treatment, refusing medications, does not want to talk to me. The patient with increased delusional thinking, only wants to see her outside psychiatrist, who has no privileges here. History of schizophrenia, refusing to talk to me, "I know my rights, I refuse here, I refuse to see you." The patient only wants to be prescribed medication by her outside psychiatrist. She does mention she had been on Mellaril in the past. ASSESSMENT: The patient aggressive, loud, refusing treatment, ongoing concerns about psychosis. PLAN: We will continue to monitor. The patient might be amenable to medication called Mellaril given that her outside psychiatrist prescribed this in the past. We will continue to monitor, starting at the low dose of 25 mg 3 times daily. JOB# [id number]
--- NOTE | 2018-02-07 08:52 | General Progress Note ---
Subjective - Review of Systems Service Date: 02/07/18 Subjective: Patient refused to talk to me Objective - Results Result Diagrams: 02/02/18 17:40 02/02/18 17:40 Recent Labs: Laboratory Last Values WBC 6.0 Th/cmm (4.8-10.8) 02/02/18 17:40 RBC 4.21 Mil/cmm (3.80-5.20) 02/02/18 17:40 Hgb 11.1 gm/dL (12-16) L 02/02/18 17:40 Hct 34.1 % (41.0-60) L 02/02/18 17:40 MCV 80.9 fl (81-100) L 02/02/18 17:40 MCH 26.3 pg (27.0-31.0) L 02/02/18 17:40 MCHC Differential 32.5 pg (28.0-36.0) 02/02/18 17:40 RDW 16.6 % (11.5-20.0) 02/02/18 17:40 Plt Count 240 Th/cmm (150-400) 02/02/18 17:40 MPV 8.6 fl 02/02/18 17:40 Neutrophils % 63.4 % (40.0-80.0) 02/02/18 17:40 Lymphocytes % 24.7 % (20.0-50.0) 02/02/18 17:40 Monocytes % 8.6 % (2.0-10.0) 02/02/18 17:40 Eosinophils % 2.3 % (0.0-5.0) 02/02/18 17:40 Basophils % 1.0 % (0.0-2.0) 02/02/18 17:40 Sodium 138 mEq/L (136-145) 02/02/18 17:40 Potassium 3.8 mEq/L (3.5-5.1) 02/02/18 17:40 Chloride 104 mEq/L (98-107) 02/02/18 17:40 Carbon Dioxide 24.8 mEq/L (21.0-31.0) 02/02/18 17:40 Anion Gap 13.0 (7.0-16.0) 02/02/18 17:40 BUN 14 mg/dL (7-25) 02/02/18 17:40 Creatinine 1.0 mg/dL (0.6-1.2) 02/02/18 17:40 Est GFR ( Amer) TNP 02/02/18 17:40 Est GFR (Non-Af Amer) TNP 02/02/18 17:40 BUN/Creatinine Ratio 14.0 02/02/18 17:40 Glucose 97 mg/dL (70-105) 02/02/18 17:40 Calcium 9.7 mg/dL (8.6-10.3) 02/02/18 17:40 Phosphorus 3.1 mg/dL (2.5-5.0) 02/02/18 17:40 Magnesium 2.0 mg/dL (1.9-2.7) 02/02/18 17:40 Total Bilirubin 0.8 mg/dL (0.3-1.0) 02/02/18 17:40 AST 16 U/L (13-39) 02/02/18 17:40 ALT 12 U/L (7-52) 02/02/18 17:40 Alkaline Phosphatase 63 U/L (34-104) 02/02/18 17:40 Total Protein 6.6 gm/dL (6.0-8.3) 02/02/18 17:40 Albumin 3.4 gm/dL (3.7-5.3) L 02/02/18 17:40 Globulin 3.2 gm/dL 02/02/18 17:40 Albumin/Globulin Ratio 1.1 (1.0-1.8) 02/02/18 17:40 Triglycerides 131 mg/dL (<150) 02/03/18 06:57 Cholesterol 165 mg/dL (<200) 02/03/18 06:57 LDL Cholesterol Direct 100 mg/dL (75-193) 02/03/18 06:57 HDL Cholesterol 56 mg/dL (23-92) 02/03/18 06:57 TSH 1.99 uIU/ml (0.34-5.60) 02/02/18 17:40 Urine Source CLEAN C 02/02/18 18:26 Urine Color YELLOW 02/02/18 18:26 Urine Clarity HAZY (CLEAR) 02/02/18 18:26 Urine pH 5.5 (4.6 - 8.0) 02/02/18 18:26 Ur Specific Dumont 1.010 (1.005-1.030) 02/02/18 18:26 Urine Protein NEGATIVE mg/dL (NEGATIVE) 02/02/18 18:26 Urine Glucose (UA) NEGATIVE mg/dL (NEGATIVE) 02/02/18 18:26 Urine Ketones NEGATIVE mg/dL (NEGATIVE) 02/02/18 18:26 Urine Blood SMALL (NEGATIVE) H 02/02/18 18:26 Urine Nitrate POSITIVE (NEGATIVE) H 02/02/18 18:26 Urine Bilirubin NEGATIVE (NEGATIVE) 02/02/18 18:26 Urine Urobilinogen 0.2 E.U./dL (0.2 - 1.0) 02/02/18 18:26 Ur Leukocyte Esterase LARGE (NEGATIVE) H 02/02/18 18:26 Urine RBC 2-5 /hpf (0-5) 02/02/18 18:26 Urine WBC 6-10 /hpf (0-5) H 02/02/18 18:26 Ur Epithelial Cells FEW /lpf (FEW) 02/02/18 18:26 Calcium Oxalate Crystal MANY /hpf 02/02/18 18:26 Urine Bacteria 3+ /hpf (NONE SEEN) H 02/02/18 18:26 - Physical Exam Vitals and I&O: Vital Signs Temp 98.3 F 02/07/18 06:05 Pulse 87 02/07/18 06:05 Resp 20 02/07/18 06:05 BP 131/71 02/07/18 06:05 Pulse Ox 98 02/07/18 06:05 Intake & Output 02/06/18 02/07/18 02/07/18 18:59 06:59 18:59 Intake Total 1000 400 Balance 1000 400 Weight (lbs) 108.862 kg Intake: Oral 1000 400 Other: # Voids 4 2 # Bowel Movements 2 1 Weight Source Bedscale Active Medications: Current Medications Acetaminophen (Tylenol) 650 mg PO Q4HR PRN PRN Reason: Pain/temp>100 Stop: 04/03/18 23:14 Last Admin: 02/05/18 21:07 Dose: 650 mg Albuterol Sulfate (Albuterol 2.5mg/3ml Neb Ud) 2.5 mg HHN Q4HRT PRN PRN Reason: COPD Stop: 04/03/18 23:14 Aripiprazole (Abilify) 2.5 mg PO DAILY [facility]; Protocol Stop: 04/06/18 08:59 Last Admin: 02/06/18 08:14 Dose: Not Given Aspirin (Aspirin Chewable) 81 mg PO DAILY [facility] [place] Stop: 04/04/18 08:59 Last Admin: 02/06/18 08:14 Dose: Not Given Atorvastatin Calcium (Lipitor) 20 mg PO HS [facility] [place] Stop: 04/04/18 20:59 Last Admin: 02/06/18 21:37 Dose: Not Given Bisacodyl (Dulcolax 5 Mg Ec Tab) 10 mg PO BID [facility] [place] Stop: 04/04/18 08:59 Last Admin: 02/06/18 16:01 Dose: Not Given Calcium Carbonate (Os-Emilio) 500 mg PO Q6H PRN PRN Reason: Indigestion/HEARTBURN Stop: 04/03/18 23:17 Calcium/Vitamin D (Oscal W/Vitamin D) 1 tab PO DAILY [facility] [place] Stop: 04/04/18 08:59 Last Admin: 02/06/18 08:14 Dose: Not Given Cyanocobalamin (Vitamin B12) 1,000 mcg PO DAILY [facility] [place] Stop: 04/04/18 08:59 Last Admin: 02/06/18 08:14 Dose: Not Given Docusate Sodium (Colace) 200 mg PO DAILY [facility] [place] Stop: 04/04/18 08:59 Last Admin: 02/06/18 08:14 Dose: Not Given Ferrous Sulfate (Iron) 325 mg PO DAILY [facility] [place] Stop: 04/04/18 08:59 Last Admin: 02/06/18 08:14 Dose: Not Given Lorazepam (Ativan) 0.5 mg PO Q4HR PRN; Protocol PRN Reason: Anxiety Stop: 03/04/18 21:34 Last Admin: 02/05/18 01:46 Dose: 0.5 mg Magnesium Hydroxide (Milk Of Magnesia) 30 ml PO DAILY PRN PRN Reason: Constipation Stop: 04/03/18 23:17 Nitrofurantoin Macrocrystals (Macrobid) 100 mg PO BID [facility] [place] Stop: 02/10/18 19:00 Last Admin: 02/06/18 16:01 Dose: Not Given Potassium Chloride (Klor-Con) 10 meq PO DAILY [facility] [place] Stop: 04/04/18 08:59 Last Admin: 02/06/18 08:14 Dose: Not Given Thioridazine HCl (Mellaril) 25 mg PO TID [facility] [place]; Protocol Stop: 04/07/18 13:59 Last Admin: 02/06/18 21:37 Dose: Not Given Valproate Sodium (Depakene) 250 mg PO BID [facility]; Protocol Stop: 04/04/18 16:59 Last Admin: 02/06/18 16:01 Dose: Not Given Zolpidem Tartrate (Ambien) 5 mg PO HS PRN PRN Reason: Insomnia Stop: 04/03/18 22:13 Last Admin: 02/04/18 21:30 Dose: 5 mg General: Alert, No acute distress HEENT: Atraumatic Cardiovascular: Regular rate Lungs: Clear to auscultation Abdomen: Bowel sounds, Soft Extremities: Other (No edema) Neurological: Other (Unstable gait) Skin: Other (Warm and dry) Psych/Mental Status: Other (Confused not oriented) - Procedures Procedures: Procedures Procedure Code Date GROUP PSYCHOTHERAPY 45205 08/26/15 GROUP PSYCHOTHERAPY [id number] 08/26/15 OTHER GROUP THERAPY 94.44 06/25/14 Assessment/Plan - Problem List Patient Problems: All Active Problems AGITATION AND MEDICAL NONCOMPLIANCE (Acute) - Assessment Assessment: Current Active Problems Problem Status Onset AGITATION AND MEDICAL NONCOMPLIANCE Acute Patient is awake, alert, aggressive at moments, with paranoid ideas. Dx: Increased in agitation, UTI, HTN, COPD, Dementia, Schizophrenia. - Plan Plan: Patient is follow by Psychiatry, and continue with SNF, AB po is started. Will continue to monitor.
[2018-02-07] MEDS: Ferrous Sulfate 325 MG TAB PO SCH (10:54)
[2018-02-07] MEDS: Thioridazine Hydrochloride 25 MG TAB PO SCH (10:54)
[2018-02-07] MEDS: Calcium Carb/Vit D 500 mg/200 U Tab PO SCH (10:54)
[2018-02-07] MEDS: Multivitamin w/ Minerals Tab PO SCH (10:54)
[2018-02-07] MEDS: Aspirin 81mg Chewable Tab PO SCH (10:54)
[2018-02-07] MEDS: Potassium Chloride 10 mEq ER Tab PO SCH (10:55)
--- NOTE | 2018-02-07 17:21 | Progress Notes ---
DATE: 02/07/2018 SUBJECTIVE: The patient slept fairly well, confused, forgetful, but she is kind of agitated, not taking any medications, paranoid, stating that it is her right not to speak with me and she will only speak with her outside psychiatrist who does not have privileges here. She is loud, yelling at times, highly impulsive, unpredictable. ASSESSMENT: The patient remains symptomatic. History of mental illness, started on Mellaril. Refusing treatment. PLAN: We will continue to monitor. We will continue to have risks, benefits discussion with the patient about treatment and medicines. JOB# [id number]
== END 2018-02-07 19:00 | DRG 885 ==
LOC: ER 17:21 → GERO2 20:15 → GERO 02-03 03:35
PROVIDERS: ADMIT Psychiatry & Neurology Psychiatry; ATTEND Psychiatry & Neurology Psychiatry
DX: F20.9 Schizophrenia, unspecified (principal); N39.0 Urinary tract infection, site not specified; F31.9 Bipolar disorder, unspecified; F03.90 Unspecified dementia, unspecified severity, without behavioral disturbance, psychotic disturbance, mood disturbance, and anxiety; I10 Essential (primary) hypertension; J44.9 Chronic obstructive pulmonary disease, unspecified; E78.5 Hyperlipidemia, unspecified; K21.9 Gastro-esophageal reflux disease without esophagitis; R56.9 Unspecified convulsions; D64.9 Anemia, unspecified; E53.8 Deficiency of other specified B group vitamins; Z88.5 Allergy status to narcotic agent; Z88.0 Allergy status to penicillin; Z82.49 Family history of ischemic heart disease and other diseases of the circulatory system; Z91.19 Patient's noncompliance with other medical treatment and regimen; Z79.82 Long term (current) use of aspirin; Z79.899 Other long term (current) drug therapy; Z88.1 Allergy status to other antibiotic agents
CPT/HCPCS: 36415-UA; 80053-TC; 80061-TC; 81001-TC; 83036-90; 83735-TC; 84100-TC; 84443-TC; 85025-TC; 87086-90; 94760; J7040; Z7610

== ENCOUNTER 2018-03-21 19:16 | Inpatient (IN) | payer MEDICARE, MEDICAID ==
[2018-03-21 19:50] LABS: % BASOPHILS 1.3 % (0.0-2.0); % EOSINOPHILS 1.6 % (0.0-5.0); % LYMPHOCYTES 23.8 % (20.0-50.0); % MONOCYTES 6.5 % (2.0-10.0); % NEUTROPHILS 66.8 % (40.0-80.0); BASOPHILE ABSOLUTE 0.1 Th/cumm (0-0.2); EOSINOPHILE ABSOLUTE 0.1 Th/cmm (0.1-0.4); HEMATOCRIT 33.8 % (41.0-60); LYMPHOCYTE ABSOLUTE 1.7 Th/cmm (1.5-3.0); MEAN CELL VOLUME 82.1 fl (81-100); MEAN CORPUSCULAR HEMOGLOBIN 26.7 pg (27.0-31.0); MEAN CORPUSCULAR HGB CONC 32.5 pg (28.0-36.0); MEAN PLATELET VOLUME 8.1 fl; MONOCYTE ABSOLUTE 0.5 Th/cmm (0.3-1.0); NEUTROPHILE ABSOLUTE 4.8 Th/cmm (1.8-8.0); PLATELET COUNT 251 Th/cmm (150-400); RED BLOOD COUNT 4.11 Mil/cmm (3.80-5.20); RED CELL DISTRIBUTION WIDTH 16.2 % (11.5-20.0); WHITE BLOOD COUNT 7.2 Th/cmm (4.8-10.8)
--- NOTE | 2018-03-21 19:57 | ED Physician Chart ---
ED Chief Complaint/HPI - Patient Information Date Seen:: 03/21/18 Time Seen:: 19:15 Chief Complaint:: Agitation History of Present Illness:: onset x 3 days of agitation and aggressive behavior; no report of trauma, SIs, H /As, neck pain, C/P, SOB, Abd. Pain, S/T, cough, A/N/V/D/C, fever, chills, or urinary s/s Allergies:: Allergies Allergy/AdvReac Type Severity Reaction Status Date / Time codeine AdvReac Verified 08/26/15 18:25 Penicillins [PCN] AdvReac Verified 08/26/15 18:25 tetracycline AdvReac Verified 08/26/15 18:26 Vitals:: Vital Signs - 8 hr 03/21/18 19:25 Temp 98.7 F HR 86 RR 19 BP 149/71 O2 Sat % 98 Historian:: Patient, EMS Review:: Nurse's Note Reviewed, Old Chart Reviewed, EMS run form Reviewed ED Review of Systems - Review of Systems General/Constitutional: No fever, No chills, No weight loss, No weakness, No diaphoresis, No edema, No loss of appetite Skin: No skin lesions, No rash, No bruising Head: No headache, No light-headedness Eyes: No loss of vision, No pain, No diplopia ENT: No earache, No nasal drainage, No sore throat, No tinnitus Neck: No neck pain, No swelling, No thyromegaly, No stiffness, No mass noted Cardio Vascular: No chest pain, No palpitations, No PND, No orthopnea, No edema Pulmonary: No SOB, No cough, No sputum, No wheezing GI: No nausea, No vomiting, No diarrhea, No pain, No melena, No hematochezia, No constipation, No hematemesis G/U: No dysuria, No frequency, No hematuria, No nacturia Tube Rebuilder: No vaginal discharge, No abnormal vaginal bleed, No contraction Musculoskeletal: No bone or joint pain, No back pain, No muscle pain Endocrine: No polyuria, No polydipsia Psychiatric: Prior psych history, Depression, Anxiety, No suicidal ideation, No homicidal ideation, No auditory hallucination, No visual hallucination Hematopoietic: No bruising, No lymphadenopathy Allergic/Immuno: No urticaria, No angioedema Neurological: No syncope, No focal symptoms, No weakness, No paresthesia, No headache, Seizure, No dizziness, No confusion, No vertigo ED Past Medical History - Past Medical History Obtainable: Yes Past Medical History: HTN, Dyslipidemia, Seizures Family History: HTN Social History: Non Smoker, No Alcohol, No Drug Use, , Care Facility Surgical History: None Psychiatricy History: Depression, Bipolar Medication: Reviewed Family Medical History - Family Member Mother History Unknown: Yes Ethnicity: Living Status: Unknown Hx Family Cancer: No Hx Family Coronary Artery Disease: Yes Hx Family Congestive Heart Failure: No Hx Family Hypertension: Yes Hx Family Stroke: No Hx Family Diabetes: No Hx Family Seizures: No Hx Family Dementia: No Hx Family AIDS: No Hx Family HIV: No Hx Family COPD: No Hx Family Hepatitis: No Hx Family Psychiatric Problems: No Hx Family Tuberculosis: No ED Physical Exam - Physical Examination General/Constitutional: Awake, Well-developed, well-nourished, Alert, No distress, GCS 15, Non-toxic appearing, Ambulatory Head: Atraumatic Eyes: Lids, conjuctiva normal, PERRL, EOMI Skin: Nl inspection, No rash, No skin lesions, No ecchymosis, Well hydrated, No lymphadenopathy ENMT: External ears, nose nl, TM canals nl, Nasal exam nl, Lips, teeth, gums nl , Oropharynx nl, Tonsils nl Neck: Nontender, Full ROM w/o pain, No JVD, No nuchal rigidity, No bruit, No mass, No stridor Respiratory: Nl effort/Exclusion, Clear to Auscultation, No Wheeze/Rhonchi/Rales Cardio Vascular: RRR, No murmur, gallop, rubs, NL S1 S2, Carotid/Femoral/Distal pulses equal bilaterally GI: No tenderness/rebounding/guarding, No organomegaly, No hernia, Normal BS's, Nondistended, No mass/bruits, No McBurney tenderness Other GI comments:: no pulsatile masses : No CVA tenderness Extremities: No tenderness or effusion, Full ROM, normal strength in all extremities, No edema, Normal digits & nails Neuro/Psych: Alert/oriented, DTR's symmetric, Normal sensory exam, Normal motor strength, Judgement/insight normal, Mood normal, Normal gait, No focal deficits Other Neuro/Psych comments:: + Psychomotor Agitation; no SIs; Mood/Affect: Labile Misc: Normal back, No paraspinal tenderness ED Labs/Radiology/EKG Results - Lab Results Comments:: Reviewed - EKG Interpretations EKG Time:: 19:45 Rate & Rhythm: 91; NSR Comments:: non-specific st-t changes ED Septic Shock - . Is Septic Shock (SBP<90, OR Lactate>4 mmol\L) present?: No - <6hrs of presentation: Vital Signs: Vital Signs - 8 hr 03/21/18 19:25 Temp 98.7 F HR 86 RR 19 BP 149/71 O2 Sat % 98 ED Reassessment (Disposition) - Reassessment Reassessment Condition:: Improved - Diagnosis Diagnosis:: Agitation; Medical Clearance; Anemia; Psychosis; Bipolar Disorder - Aftercare/Follow up Instructions Aftercare/Follow-Up Instructions:: Counseled pt regarding lab results/diagnosis & need follow up, Counseled pt & family regarding lab results/diagnosis & need follow up - Patient Disposition Discharge/Transfer:: Acute Care w/in this hosp Admitted to:: [facility] Condition at Disposition:: Stable, Improved
[2018-03-21 20:11] LABS: CHOLESTEROL 171 mg/dL (<200); HDL -HIGH DENSITY LIPOPROTEIN 60 mg/dL (23-92); SALICYLATES (ASPIRIN) < 25.0 mg/L (30.0-100.0); TRIGLYCERIDES 118 mg/dL (<150)
[2018-03-21 20:12] LABS: ACETAMINOPHEN < 10.0 ug/mL (10.0-30.0)
[2018-03-21 20:35] LABS: ALB/GLOB RATIO 1.1 (1.0-1.8); ALBUMIN 3.5 gm/dL (3.7-5.3); ALKALINE PHOSPHATASE 74 U/L (34-104); ANION GAP 12.1 (7.0-16.0); BILIRUBIN,TOTAL 0.7 mg/dL (0.3-1.0); BUN - UREA NITROGEN 22 mg/dL (7-25); CALCIUM SERUM 10.1 mg/dL (8.6-10.3); CARBON DIOXIDE 23.2 mEq/L (21.0-31.0); CHLORIDE 104 mEq/L (98-107); GLUCOSE 98 mg/dL (70-105); POTASSIUM SERUM 4.3 mEq/L (3.5-5.1); SGOT 12 U/L (13-39); SGPT/ALT 10 U/L (7-52); SODIUM SERUM 135 mEq/L (136-145); TOTAL PROTEIN,SERUM 6.8 gm/dL (6.0-8.3)
[2018-03-21 23:01] VITALS: BP 130/73
--- NOTE | 2018-03-22 08:47 | History and Physical ---
History of Present Illness - HPI Chief Complaint: Increased in agitation, refusing meds. HPI: Patient was send from SNF due that x 3 days patient has become more agitated, refusing meds. Vital Signs: Last Vital Signs Temp 97.3 F 03/22/18 06:53 Pulse 90 03/22/18 06:53 Resp 20 03/22/18 06:53 BP 140/81 03/22/18 06:53 Pulse Ox 98 03/22/18 06:53 Past Medical History Cardiovascular: Report: CAD, HTN Pulmonary: Report: COPD [employer]: Report: Dementia GI: Report: No Pertinent Hx Psych: Report: Bipolar, Depression, Psychosis Musculoskeletal: Report: Weakness Rheumatologic: Report: No pertinent Hx Infectious Disease: Report: No Pertinent Hx Renal/: Report: No Pertinent Hx Endocrine: Report: No Pertinent Hx Dermatology: Report: No Pertinent Hx - Past Surgical History Past Surgical History: No pertinent Hx Family Medical History - Family Member Mother History Unknown: Yes Ethnicity: Living Status: Unknown Hx Family Cancer: No Hx Family Coronary Artery Disease: Yes Hx Family Congestive Heart Failure: No Hx Family Hypertension: Yes Hx Family Stroke: No Hx Family Diabetes: No Hx Family Seizures: No Hx Family Dementia: No Hx Family AIDS: No Hx Family HIV: No Hx Family COPD: No Hx Family Hepatitis: No Hx Family Psychiatric Problems: No Hx Family Tuberculosis: No Social History Smoke: No Alcohol: None Drugs: None Lives: [facility] Domestic Violence: Negative - Medications Home Medications: Home Medication Medication Instructions Recorded Type Acetaminophen [Tylenol] 650 mg PO Q4HR PRN 03/21/18 History Aripiprazole [Abilify] 20 mg PO DAILY 03/21/18 History Aspirin [Aspirin Chewable] 81 mg PO DAILY 03/21/18 History Atorvastatin Calcium [Lipitor] 20 mg PO HS 03/21/18 History Bisacodyl [Dulcolax 10 Mg Supp] 10 mg RC DAILY PRN 03/21/18 History Calcium Carbonate/Vitamin D3 1 each PO DAILY 03/21/18 History [Calcium 500-Vit D3 200 Tablet] Clonidine HCl [Catapres] 0.1 mg PO Q8H PRN 03/21/18 History Cyanocobalamin [Vitamin B12] 1,000 mcg PO DAILY 03/21/18 History Docusate Sodium 200 mg PO DAILY 03/21/18 History Ferrous Sulfate 325 mg PO DAILY 03/21/18 History Magnesium Hydroxide [Milk of 30 ml PO DAILY PRN 03/21/18 History Magnesia] Melatonin 3 mg PO HS PRN 03/21/18 History Multivitamin w/ Minerals 1 tab PO DAILY 03/21/18 History [Theragran M] Potassium Chloride [Klor-Con 10] 1 tab PO DAILY 03/21/18 History Valproic Acid [Depakene] 250 mg PO BID 03/21/18 History - Allergies Allergies/Adverse Reactions: Allergies Allergy/AdvReac Type Severity Reaction Status Date / Time codeine AdvReac Verified 08/26/15 18:25 Penicillins [PCN] AdvReac Verified 08/26/15 18:25 tetracycline AdvReac Verified 08/26/15 18:26 Review of Systems - Review of Systems Constitutional: Report: No Significant Eyes: Report: No Significant ENT: Report: No Significant Respiratory: Report: No Significant Cardiovascular: Report: No Significant Gastrointestinal: Report: No Significant Genitourinary: Report: No Significant Musculoskeletal: Report: No Significant Skin: Report: No Significant Neurological: Report: Weakness Physical Exam - Physical Exam HEENT: Report: Ears Nose Throat within normal limits Neck: Report: Within normal limits Cardiovascular Systems: Report: Regular, Rate and Rhythm Respiratory: Report: Breath Sounds are within normal limits Abdomen: Report: Non-tender to palpation Back: Report: Inspection of back is within normal limits. Extremities: Report: Non-tender to palpation. Skin: Report: Color of skin is within normal limits Neuro/Psych: Report: Disoriented to name time or place - Lab Results All Lab Results last 24 hours: Laboratory Results - last 24 hr 03/21/18 03/21/18 03/21/18 19:40 19:41 19:41 WBC 7.2 RBC 4.11 Hgb 11.0 L Hct 33.8 L MCV 82.1 MCH 26.7 L MCHC Differential 32.5 RDW 16.2 Plt Count 251 MPV 8.1 Neutrophils % 66.8 Lymphocytes % 23.8 Monocytes % 6.5 Eosinophils % 1.6 Basophils % 1.3 Sodium 135 L Potassium 4.3 Chloride 104 Carbon Dioxide 23.2 Anion Gap 12.1 BUN 22 Creatinine 1.0 Est GFR ( Amer) TNP Est GFR (Non-Af Amer) TNP BUN/Creatinine Ratio 22.0 Glucose 98 Calcium 10.1 Total Bilirubin 0.7 AST 12 L ALT 10 Alkaline Phosphatase 74 Troponin I Total Protein 6.8 Albumin 3.5 L Globulin 3.3 Albumin/Globulin Ratio 1.1 Triglycerides Cholesterol LDL Cholesterol Direct HDL Cholesterol TSH 2.01 Salicylates Acetaminophen Valproic Acid Ethyl Alcohol 03/21/18 03/21/18 03/21/18 19:41 19:41 19:41 WBC RBC Hgb Hct MCV MCH MCHC Differential RDW Plt Count MPV Neutrophils % Lymphocytes % Monocytes % Eosinophils % Basophils % Sodium Potassium Chloride Carbon Dioxide Anion Gap BUN Creatinine Est GFR ( Amer) Est GFR (Non-Af Amer) BUN/Creatinine Ratio Glucose Calcium Total Bilirubin AST ALT Alkaline Phosphatase Troponin I 0.01 Total Protein Albumin Globulin Albumin/Globulin Ratio Triglycerides 118 Cholesterol 171 LDL Cholesterol Direct 91 HDL Cholesterol 60 TSH Salicylates < 25.0 L Acetaminophen < 10.0 L Valproic Acid < 10.0 L Ethyl Alcohol < 10 - Assessment Assessment: Patient is awake, alert, confused, not oriented, in no acute distress. Dx: Increased in agitation, Dementia, Schizophrenia, HTN, COPD. - Plan Plan: Patient is follow by Psychiatry, she is continue with SNF meds.
[2018-03-22] MEDS ORDERED: Non-Formulary Item 1 EA (Docusate Sodium [Docusate Sodium] 200 MG) PO SCH (09:00)
[2018-03-22] MEDS ORDERED: Non-Formulary Item 1 EA (Valproic Acid [Depakene] 250 MG) PO SCH (09:00)
[2018-03-22] MEDS: Ferrous Sulfate 325 MG TAB PO SCH (10:08)
[2018-03-22] MEDS: Aspirin 81mg Chewable Tab PO SCH (10:08)
[2018-03-22] MEDS: Multivitamin w/ Minerals Tab PO SCH (10:09)
[2018-03-22] MEDS: Calcium Carb/Vit D 500 mg/200 U Tab PO SCH (10:44)
--- NOTE | 2018-03-22 14:13 | Psychiatric Evaluation ---
DATE OF SERVICE: 03/21/2018 Case was discussed with staff of the patient, reviewed records. IDENTIFYING INFORMATION: The patient is a 78-year-old female. CHIEF COMPLAINT: Unable to answer. She said that she is here and was told to come here and wait. HISTORY OF PRESENT ILLNESS: She was sent from a nursing facility because of agitation, refusing medication. She was in nursing facility. The patient has been more agitated in the past few days, refusing medication. The patient was a poor historian. She believes she was told to come and see the doctor here and she should be leaving, unable to participate in meaningful conversation or make safe plan for self-care. PAST PSYCHIATRIC HISTORY: The patient with a history of prior admissions to this facility. ALLERGIES: THE PATIENT IS ALLERGIC TO CODEINE, PENICILLIN, AND TETRACYCLINE. MEDICAL HISTORY: She has hyperlipidemia, hypertension, vitamin B12 deficiency, anemia. MEDICATIONS: The patient is on Depakote 250 mg twice a day, multivitamin daily and iron. FAMILY AND SOCIAL HISTORY: The patient reported that she has 3 children. Unable to tell me their age. She lives in a nursing facility. Unable to tell me the name of the facility that she lives in, unable to tell me if there is any family history of psychotic disorder or substance abuse or suicide. The patient denies substance abuse, unable tell me how long she went in school. MENTAL STATUS EXAMINATION: The patient was agitated, irritable, unable to participate in meaningful conversation or make safe plan for self-care. She has good eye contact. She was somewhat hyperverbal. She was alert, unable to tell me the date, where she is, why she is here. She was agitated, refusing medication. Her long-term memory is poor, cannot tell me her age. Recent memory is poor, cannot tell me the reason why she is here. Her insight about her illness is poor. Judgment is poor, does have problems acting refusing medications. IMPRESSION: Psychosis, not otherwise specified, history of bipolar disorder and dementia. MEDICAL DIAGNOSES: Deferred to the medical doctor. INITIAL TREATMENT PLAN: The patient will be continued with her medication. We will do group therapy, milieu therapy. ESTIMATED LENGTH OF STAY: 3-7 days. DISCHARGE CRITERIA: Decreasing. After discharge, outpatient treatment. [facility]# [id number] MAX
[2018-03-22] MEDS ORDERED: Non-Formulary Item 1 EA (Atorvastatin Calcium [Lipitor] 20 MG) PO SCH (21:00)
[2018-03-22] MEDS ORDERED: Atorvastatin Calcium 10 MG TAB PO SCH (21:00)
[2018-03-23] MEDS ORDERED: Calcium Carb/Vit D 500 mg/200 U Tab PO SCH (09:00)
--- NOTE | 2018-03-23 09:18 | General Progress Note ---
Subjective - Review of Systems Service Date: 03/23/18 Subjective: Patient refused to speak Objective - Results Result Diagrams: 03/21/18 19:41 03/21/18 19:40 Recent Labs: Laboratory Last Values WBC 7.2 Th/cmm (4.8-10.8) 03/21/18 19:41 RBC 4.11 Mil/cmm (3.80-5.20) 03/21/18 19:41 Hgb 11.0 gm/dL (12-16) L 03/21/18 19:41 Hct 33.8 % (41.0-60) L 03/21/18 19:41 MCV 82.1 fl (81-100) 03/21/18 19:41 MCH 26.7 pg (27.0-31.0) L 03/21/18 19:41 MCHC Differential 32.5 pg (28.0-36.0) 03/21/18 19:41 RDW 16.2 % (11.5-20.0) 03/21/18 19:41 Plt Count 251 Th/cmm (150-400) 03/21/18 19:41 MPV 8.1 fl 03/21/18 19:41 Neutrophils % 66.8 % (40.0-80.0) 03/21/18 19:41 Lymphocytes % 23.8 % (20.0-50.0) 03/21/18 19:41 Monocytes % 6.5 % (2.0-10.0) 03/21/18 19:41 Eosinophils % 1.6 % (0.0-5.0) 03/21/18 19:41 Basophils % 1.3 % (0.0-2.0) 03/21/18 19:41 Sodium 135 mEq/L (136-145) L 03/21/18 19:40 Potassium 4.3 mEq/L (3.5-5.1) 03/21/18 19:40 Chloride 104 mEq/L (98-107) 03/21/18 19:40 Carbon Dioxide 23.2 mEq/L (21.0-31.0) 03/21/18 19:40 Anion Gap 12.1 (7.0-16.0) 03/21/18 19:40 BUN 22 mg/dL (7-25) 03/21/18 19:40 Creatinine 1.0 mg/dL (0.6-1.2) 03/21/18 19:40 Est GFR ( Amer) TNP 03/21/18 19:40 Est GFR (Non-Af Amer) TNP 03/21/18 19:40 BUN/Creatinine Ratio 22.0 03/21/18 19:40 Glucose 98 mg/dL (70-105) 03/21/18 19:40 Calcium 10.1 mg/dL (8.6-10.3) 03/21/18 19:40 Total Bilirubin 0.7 mg/dL (0.3-1.0) 03/21/18 19:40 AST 12 U/L (13-39) L 03/21/18 19:40 ALT 10 U/L (7-52) 03/21/18 19:40 Alkaline Phosphatase 74 U/L (34-104) 03/21/18 19:40 Troponin I 0.01 ng/mL (0.01-0.05) 03/21/18 19:41 Total Protein 6.8 gm/dL (6.0-8.3) 03/21/18 19:40 Albumin 3.5 gm/dL (3.7-5.3) L 03/21/18 19:40 Globulin 3.3 gm/dL 03/21/18 19:40 Albumin/Globulin Ratio 1.1 (1.0-1.8) 03/21/18 19:40 Triglycerides 118 mg/dL (<150) 03/21/18 19:41 Cholesterol 171 mg/dL (<200) 03/21/18 19:41 LDL Cholesterol Direct 91 mg/dL (75-193) 03/21/18 19:41 HDL Cholesterol 60 mg/dL (23-92) 03/21/18 19:41 TSH 2.01 uIU/ml (0.34-5.60) 03/21/18 19:41 Salicylates < 25.0 mg/L (30.0-100.0) L 03/21/18 19:41 Acetaminophen < 10.0 ug/mL (10.0-30.0) L 03/21/18 19:41 Valproic Acid < 10.0 ug/mL (50.0-100.0) L 03/21/18 19:41 Ethyl Alcohol < 10 mg/dL (0-10) 03/21/18 19:41 RPR NONREACTIVE (NONREACTIVE) 03/21/18 19:41 - Physical Exam Vitals and I&O: Vital Signs Temp 97.2 F 03/22/18 20:00 Pulse 87 03/22/18 20:00 Resp 20 03/22/18 20:00 BP 121/70 03/22/18 20:00 Pulse Ox 98 03/22/18 20:00 Intake & Output 03/22/18 03/23/18 03/23/18 18:59 06:59 18:59 Intake Total 1200 Balance 1200 Intake: Oral 1200 Other: # Voids 4 # Bowel Movements 0 Active Medications: Current Medications Acetaminophen (Tylenol) 650 mg PO Q6H PRN PRN Reason: Mild Pain/Headache/T above 101 Stop: 05/20/18 23:03 Aspirin (Aspirin Chewable) 81 mg PO DAILY [facility] Stop: 05/21/18 08:59 Last Admin: 03/22/18 10:08 Dose: Not Given Atorvastatin Calcium (Lipitor) 20 mg PO HS [facility] Stop: 05/21/18 20:59 Last Admin: 03/22/18 21:05 Dose: Not Given Bisacodyl (Dulcolax 10 Mg Supp) 10 mg RC DAILY PRN PRN Reason: Constipation Stop: 05/21/18 08:38 Calcium/Vitamin D (Oscal W/Vitamin D) 1 tab PO DAILY [facility] Stop: 05/21/18 08:59 Last Admin: 03/22/18 10:44 Dose: Not Given Calcium/Vitamin D (Oscal W/Vitamin D) 1 tab PO DAILY [facility] Stop: 05/22/18 08:59 Cyanocobalamin (Vitamin B12) 1,000 mcg PO DAILY [facility] Stop: 05/21/18 08:59 Last Admin: 03/22/18 10:08 Dose: Not Given Docusate Sodium (Colace) 200 mg PO DAILY [facility] Stop: 05/22/18 08:59 Ferrous Sulfate (Iron) 325 mg PO DAILY [facility] Stop: 05/21/18 08:59 Last Admin: 03/22/18 10:08 Dose: Not Given Lorazepam (Ativan) 1 mg PO Q6H PRN; Protocol PRN Reason: Anxiety/Agitation Stop: 05/20/18 23:03 Valproate Sodium (Depakene) 250 mg PO BID [facility] Stop: 05/21/18 16:59 Last Admin: 03/22/18 17:22 Dose: Not Given Zolpidem Tartrate (Ambien) 5 mg PO HS PRN PRN Reason: Insomnia Stop: 05/20/18 23:03 General: Alert, No acute distress HEENT: Atraumatic Neck: Supple Cardiovascular: Regular rate Lungs: Clear to auscultation Abdomen: Bowel sounds, Soft Extremities: Other (No edema) Neurological: Other (Unstable gait) Skin: Other (Warm and dry) Psych/Mental Status: Other (Confused, not oriented) - Procedures Procedures: Procedures Procedure Code Date GROUP PSYCHOTHERAPY 01474 08/26/15 GROUP PSYCHOTHERAPY GZHZZZZ 08/26/15 OTHER GROUP THERAPY 94.44 06/25/14 Assessment/Plan - Assessment Assessment: Patient is awake, alert, confused, not oriented, in no acute distress. Dx: Increased in agitation, Dementia, Schizophrenia, HTN, COPD. - Plan Plan: Patient is follow by Psychiatry, she is continue with SNF meds.
[2018-03-23] MEDS: Aspirin 81mg Chewable Tab PO SCH (09:22)
[2018-03-23] MEDS: Multivitamin w/ Minerals Tab PO SCH (09:22)
[2018-03-23] MEDS: Ferrous Sulfate 325 MG TAB PO SCH (09:22)
[2018-03-23] MEDS: Calcium Carb/Vit D 500 mg/200 U Tab PO SCH (09:23)
[2018-03-23] MEDS ORDERED: Haloperidol Lactate 5 mg/mL 1mL Vial ONE (10:08)
[2018-03-23] MEDS: Haloperidol Lactate 5 mg/mL 1mL Vial IM STA ×2 (10:15→10:22)
--- NOTE | 2018-03-23 12:47 | Diagnostic Imaging Report ---
Left ankle 3 views Indication: Trauma Comparison: none Findings: There is a mildly displaced fracture of the distal tibia extending to the medial malleolus. Mildly displaced fracture of the distal fibula is also noted which appears to extend to the lateral malleolus. Surrounding soft tissue swelling is noted. Distal small Achilles and small plantar calcaneal spur is noted. There is widening of the tibiotalar articulation greatest medially. Impression: Distal fibular and tibial fractures also involving the medial and lateral malleoli. There is also widening of the tibiotalar articulation and likely superimposed ligamentous injury. Surrounding soft tissue swelling is noted. In the setting of trauma, if clinical symptoms persist and there is continued concern for an occult fracture, follow up exams in 5-7 days is suggested.
--- NOTE | 2018-03-23 15:46 | Progress Notes ---
DATE: 03/23/2018 Case was discussed with staff of the patient, reviewed records. The patient continues to have agitation and irritability, continues to have poor insight. Continues to unable to make safe plan for self-care. I have restarted her on the Depakote 250 mg twice a day. She has also multiple other medications as described before. No side effects of the medication, no sedation, no nausea and we will continue the patient in group therapy, milieu therapy, adjust medication as needed. JOB# [id number]
== END 2018-03-23 20:24 | disposition short-term general hospital (02) | DRG 885 ==
LOC: ER 19:16 → GERO 20:44 → UNDODISIN 03-23 13:13
PROVIDERS: ADMIT Psychiatry & Neurology Psychiatry; ATTEND Psychiatry & Neurology Psychiatry
DX: F29 Unspecified psychosis not due to a substance or known physiological condition (principal); I10 Essential (primary) hypertension; E78.5 Hyperlipidemia, unspecified; R56.9 Unspecified convulsions; F31.9 Bipolar disorder, unspecified; D64.9 Anemia, unspecified; I25.10 Atherosclerotic heart disease of native coronary artery without angina pectoris; J44.9 Chronic obstructive pulmonary disease, unspecified; F03.90 Unspecified dementia, unspecified severity, without behavioral disturbance, psychotic disturbance, mood disturbance, and anxiety; F20.9 Schizophrenia, unspecified; E53.8 Deficiency of other specified B group vitamins; Z88.5 Allergy status to narcotic agent; Z82.49 Family history of ischemic heart disease and other diseases of the circulatory system; Z88.0 Allergy status to penicillin; Z79.82 Long term (current) use of aspirin; Z88.1 Allergy status to other antibiotic agents
CPT/HCPCS: 36415-UA; 73610-TC; 80053-TC; 80061-TC; 80164-TC; 80320-TC; 80329-TC; 84443-TC; 84484-TC; 85025-TC; 86592-TC; 93005; J1200; J1630; J2060; Z7610

== ENCOUNTER 2018-03-23 20:54 | Inpatient (IN) | payer MEDICARE, BC ==
[2018-03-23] MEDS ORDERED: Magnesium Hydroxide (MOM) 30 mL UDC PO PRN (22:08)
[2018-03-23] MEDS ORDERED: Non-Formulary Item 1 EA (Melatonin [Melatonin] 3 MG) PO PRN (22:08)
[2018-03-24 00:02] VITALS: BP 149/65
[2018-03-24 06:47] LABS: % BASOPHILS 0.5 % (0.0-2.0); % EOSINOPHILS 0.5 % (0.0-5.0); % LYMPHOCYTES 21.2 % (20.0-50.0); % MONOCYTES 7.6 % (2.0-10.0); % NEUTROPHILS 70.2 % (40.0-80.0); HEMATOCRIT 29.5 % (41.0-60); HEMOGLOBIN 9.8 gm/dL (12-16); LYMPHOCYTE ABSOLUTE 1.5 Th/cmm (1.5-3.0); MEAN CELL VOLUME 81.5 fl (81-100); MEAN CORPUSCULAR HEMOGLOBIN 27.1 pg (27.0-31.0); MEAN CORPUSCULAR HGB CONC 33.3 pg (28.0-36.0); MEAN PLATELET VOLUME 8.8 fl; MONOCYTE ABSOLUTE 0.5 Th/cmm (0.3-1.0); NEUTROPHILE ABSOLUTE 5.2 Th/cmm (1.8-8.0); PLATELET COUNT 197 Th/cmm (150-400); RED BLOOD COUNT 3.62 Mil/cmm (3.80-5.20); RED CELL DISTRIBUTION WIDTH 16.3 % (11.5-20.0); WHITE BLOOD COUNT 7.2 Th/cmm (4.8-10.8)
[2018-03-24 07:06] LABS: ALKALINE PHOSPHATASE 58 U/L (34-104); ANION GAP 8.9 (7.0-16.0); BILIRUBIN,TOTAL 0.6 mg/dL (0.3-1.0); BUN - UREA NITROGEN 23 mg/dL (7-25); CALCIUM SERUM 9.9 mg/dL (8.6-10.3); CARBON DIOXIDE 24.1 mEq/L (21.0-31.0); CHLORIDE 110 mEq/L (98-107); CREATININE - SERUM 0.9 mg/dL (0.6-1.2); GLUCOSE 96 mg/dL (70-105); SGOT 14 U/L (13-39); SGPT/ALT 11 U/L (7-52); SODIUM SERUM 139 mEq/L (136-145); TOTAL PROTEIN,SERUM 5.9 gm/dL (6.0-8.3)
[2018-03-24] MEDS: Multivitamin w/ Minerals Tab PO SCH ×2 (08:46→09:00)
[2018-03-24] MEDS: Aspirin 81mg Chewable Tab PO SCH ×2 (08:46→08:58)
[2018-03-24] MEDS: Ferrous Sulfate 325 MG TAB PO SCH ×2 (08:46→09:00)
[2018-03-24] MEDS ORDERED: Non-Formulary Item 1 EA (Valproic Acid [Depakene] 250 MG) PO SCH (09:00)
[2018-03-24] MEDS ORDERED: Non-Formulary Item 1 EA (Aripiprazole [Abilify] 20 MG) PO SCH (09:00)
--- NOTE | 2018-03-24 11:20 | History and Physical ---
History of Present Illness - HPI Chief Complaint: Patient felt down and fracture her ankle HPI: Patient was at [facility] due to increased in agitation and refusing medications. According to nurse notes she was found in the floor and weel chair beside her, she explainesd that she was trying to drink water from the faucet when she felt down. X-ray was done and showed Distal fibular and tibial fractures also involving the medial and lateral malleoli. 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 GI: Report: No Pertinent Hx Psych: Report: Schizophrenia Musculoskeletal: Report: No Pertinent Hx Rheumatologic: Report: No pertinent Hx Infectious Disease: Report: No Pertinent Hx Renal/: Report: No Pertinent Hx Endocrine: Report: No Pertinent Hx Dermatology: Report: No Pertinent Hx - Past Surgical History Past Surgical History: No pertinent Hx Family Medical History - Family Member Mother History Unknown: Yes Ethnicity: Living Status: Unknown Hx Family Cancer: No Hx Family Coronary Artery Disease: Yes Hx Family Congestive Heart Failure: No Hx Family Hypertension: Yes Hx Family Stroke: No Hx Family Diabetes: No Hx Family Seizures: No Hx Family Dementia: No Hx Family AIDS: No Hx Family HIV: No Hx Family COPD: No Hx Family Hepatitis: No Hx Family Psychiatric Problems: No Hx Family Tuberculosis: No Social History Smoke: No Alcohol: None Drugs: None Lives: [facility] Domestic Violence: Negative - Medications Home Medications: Home Medication Medication Instructions Recorded Type Acetaminophen [Tylenol] 650 mg PO Q4HR PRN 03/21/18 History Aripiprazole [Abilify] 20 mg PO DAILY 03/21/18 History Aspirin [Aspirin Chewable] 81 mg PO DAILY 03/21/18 History Atorvastatin Calcium [Lipitor] 20 mg PO HS 03/21/18 History Bisacodyl [Dulcolax 10 Mg Supp] 10 mg RC DAILY PRN 03/21/18 History Calcium Carbonate/Vitamin D3 1 each PO DAILY 03/21/18 History [Calcium 500-Vit D3 200 Tablet] Clonidine HCl [Catapres] 0.1 mg PO Q8H PRN 03/21/18 History Cyanocobalamin [Vitamin B12] 1,000 mcg PO DAILY 03/21/18 History Docusate Sodium 200 mg PO DAILY 03/21/18 History Ferrous Sulfate 325 mg PO DAILY 03/21/18 History Magnesium Hydroxide [Milk of 30 ml PO DAILY PRN 03/21/18 History Magnesia] Melatonin 3 mg PO HS PRN 03/21/18 History Multivitamin w/ Minerals 1 tab PO DAILY 03/21/18 History [Theragran M] Potassium Chloride [Klor-Con 10] 1 tab PO DAILY 03/21/18 History Valproic Acid [Depakene] 250 mg PO BID 03/21/18 History Acetaminophen [Tylenol] 650 mg PO Q6H PRN tab 03/23/18 Rx Aspirin [Aspirin Chewable] 81 mg PO DAILY [facility] 03/23/18 Rx Atorvastatin Calcium [Lipitor] 20 mg PO HS tab 03/23/18 Rx Bisacodyl [Dulcolax 10 Mg Supp] 10 mg RC DAILY PRN sup 03/23/18 Rx Calcium Carb/Vit D 500mg/200U 1 tab PO DAILY tab 03/23/18 Rx [Oscal w/Vitamin D] Calcium Carb/Vit D 500mg/200U 1 tab PO DAILY tab 03/23/18 Rx [Oscal w/Vitamin D] Cyanocobalamin [Vitamin B12] 1,000 mcg PO DAILY tab 03/23/18 Rx Docusate Sodium [Colace] 200 mg PO DAILY cap 03/23/18 Rx Ferrous Sulfate [Iron] 325 mg PO DAILY tab 03/23/18 Rx Lorazepam [Ativan] 1 mg PO Q6H PRN tab 03/23/18 Rx Multivitamin w/ Minerals 1 tab PO DAILY tab 03/23/18 Rx [Theragran M] Valproic Acid [Depakene] 250 mg PO BID [facility] 03/23/18 Rx Zolpidem Tartrate [Ambien] 5 mg PO HS PRN tab 03/23/18 Rx cloNIDine HCl [Catapres] 0.1 mg PO Q8H PRN tab 03/23/18 Rx - Allergies Allergies/Adverse Reactions: Allergies Allergy/AdvReac Type Severity Reaction Status Date / Time codeine AdvReac Verified 08/26/15 18:25 Penicillins [PCN] AdvReac Verified 08/26/15 18:25 tetracycline AdvReac Verified 08/26/15 18:26 Review of Systems - Review of Systems Constitutional: Report: No Significant Eyes: Report: No Significant ENT: Report: No Significant Respiratory: Report: No Significant Cardiovascular: Report: No Significant Gastrointestinal: Report: No Significant Musculoskeletal: Report: Leg Pain Skin: Report: No Significant Neurological: Report: No Significant Physical Exam - Physical Exam HEENT: Report: Ears Nose Throat within normal limits Neck: Report: Within normal limits Cardiovascular Systems: Report: Regular, Rate and Rhythm Respiratory: Report: Breath Sounds are within normal limits Abdomen: Report: Non-tender to palpation Back: Report: Inspection of back is within normal limits. Extremities: Report: Other (Left leg is in a cast) Skin: Report: Color of skin is within normal limits, Warm, Dry Neuro/Psych: Report: Disoriented to name time or place - Lab Results All Lab Results last 24 hours: Laboratory Results - last 24 hr 03/24/18 03/24/18 03/24/18 05:49 05:49 05:49 WBC 7.2 RBC 3.62 L Hgb 9.8 L Hct 29.5 L MCV 81.5 MCH 27.1 MCHC Differential 33.3 RDW 16.3 Plt Count 197 MPV 8.8 Neutrophils % 70.2 Lymphocytes % 21.2 Monocytes % 7.6 Eosinophils % 0.5 Basophils % 0.5 Sodium 139 Potassium 4.0 Chloride 110 H Carbon Dioxide 24.1 Anion Gap 8.9 BUN 23 Creatinine 0.9 Est GFR ( Amer) TNP Est GFR (Non-Af Amer) TNP BUN/Creatinine Ratio 25.6 Glucose 96 Calcium 9.9 Total Bilirubin 0.6 AST 14 ALT 11 Alkaline Phosphatase 58 Total Protein 5.9 L Albumin 3.0 L Globulin 2.9 Albumin/Globulin Ratio 1.0 TSH 2.59 - Assessment Assessment: Patient is awake, alert, confused, not oriented and agitated at moments. Dx: Distal Fibular and tibial fractures involving the medial and lateral malleoli, HTN, CAD, COPD, Dementia, Schizophrenia. - Plan Plan: Patient was alreary seen by Ortho and recomended surgery but patient refused. She is continue with SNF meds but she is refusing meds. Consult with Psychiatry will be request. I will call daughter to discuss case.
[2018-03-24] MEDS ORDERED: VTE Chemical Prophylaxis Screen/Admission MC PRN (16:43)
[2018-03-24] MEDS: Atorvastatin Calcium 10 MG TAB PO SCH (20:05)
--- NOTE | 2018-03-25 01:57 | Consultation ---
DATE OF CONSULTATION: 03/24/2018 HISTORY OF PRESENT ILLNESS: The patient is a 78-year-old lady who was a patient on the Geropsych Unit. She somehow fell and injured her left ankle. X-rays were taken and fractures were found and she was admitted to the med/surg steiner. I was called in orthopedic consultation by the admitting physician regarding her left ankle injury. PAST GEROPSYCH HISTORY: As above. I cannot get any useful information from her. The chart contains diagnoses of schizophrenia, dementia, CAD, hypertension, COPD. PRIOR MEDICAL HISTORY, SURGERY, ETC.: I cannot obtain information. EXAMINATION: The patient was examined in her hospital room at [facility]. She would not allow the nurses to put a splint on her ankle, which had been ordered. Swelling about the left ankle was noted and it was displaced slightly laterally. Movement was painful and minimal. Dorsalis pedis and posterior tibial pulse was not palpable because of swelling. There is adequate sensation to the forefoot and toes, right side unremarkable. IMAGING STUDIES: I reviewed x-rays in the PACS, left ankle. There is a bimalleolar fracture with slight displacement of both fragments. There is an overall appearance of osteopenia. ORTHOPEDIC DIAGNOSIS: 1. Bimalleolar fracture, left ankle, closed, displaced. 2. Other diagnoses as above. RECOMMENDATIONS: I tried to discuss with the patient my recommended treatment for her fractures and surgery with internal fixation. I informed her she will continue pain and problems of the ankle, posttraumatic arthritis, etc., if does not get it fixed. She stated that she does not want surgery and will not have surgery. Therefore, I ordered a Cam walker type cast boot that will hold her reasonably straight and protect the ankle. She should have continued elevation of the part at or above heart level. She should be nonweightbearing regarding the left ankle and otherwise can do a bed to chair program with assistance to avoid placing pressure on the left lower extremity. Thank you for this interesting referral. JOB# [id number]
[2018-03-25] MEDS: Aspirin 81mg Chewable Tab PO SCH (08:20)
[2018-03-25] MEDS: Ferrous Sulfate 325 MG TAB PO SCH (08:21)
[2018-03-25] MEDS: Multivitamin w/ Minerals Tab PO SCH (08:21)
--- NOTE | 2018-03-25 11:08 | General Progress Note ---
Subjective - Review of Systems Service Date: 03/25/18 Subjective: Patient refused to talk to me Objective - Results Result Diagrams: 03/24/18 05:49 03/24/18 05:49 Recent Labs: Laboratory Last Values WBC 7.2 Th/cmm (4.8-10.8) 03/24/18 05:49 RBC 3.62 Mil/cmm (3.80-5.20) L 03/24/18 05:49 Hgb 9.8 gm/dL (12-16) L 03/24/18 05:49 Hct 29.5 % (41.0-60) L 03/24/18 05:49 MCV 81.5 fl (81-100) 03/24/18 05:49 MCH 27.1 pg (27.0-31.0) 03/24/18 05:49 MCHC Differential 33.3 pg (28.0-36.0) 03/24/18 05:49 RDW 16.3 % (11.5-20.0) 03/24/18 05:49 Plt Count 197 Th/cmm (150-400) 03/24/18 05:49 MPV 8.8 fl 03/24/18 05:49 Neutrophils % 70.2 % (40.0-80.0) 03/24/18 05:49 Lymphocytes % 21.2 % (20.0-50.0) 03/24/18 05:49 Monocytes % 7.6 % (2.0-10.0) 03/24/18 05:49 Eosinophils % 0.5 % (0.0-5.0) 03/24/18 05:49 Basophils % 0.5 % (0.0-2.0) 03/24/18 05:49 Sodium 139 mEq/L (136-145) 03/24/18 05:49 Potassium 4.0 mEq/L (3.5-5.1) 03/24/18 05:49 Chloride 110 mEq/L (98-107) H 03/24/18 05:49 Carbon Dioxide 24.1 mEq/L (21.0-31.0) 03/24/18 05:49 Anion Gap 8.9 (7.0-16.0) 03/24/18 05:49 BUN 23 mg/dL (7-25) 03/24/18 05:49 Creatinine 0.9 mg/dL (0.6-1.2) 03/24/18 05:49 Est GFR ( Amer) TNP 03/24/18 05:49 Est GFR (Non-Af Amer) TNP 03/24/18 05:49 BUN/Creatinine Ratio 25.6 03/24/18 05:49 Glucose 96 mg/dL (70-105) 03/24/18 05:49 Calcium 9.9 mg/dL (8.6-10.3) 03/24/18 05:49 Total Bilirubin 0.6 mg/dL (0.3-1.0) 03/24/18 05:49 AST 14 U/L (13-39) 03/24/18 05:49 ALT 11 U/L (7-52) 03/24/18 05:49 Alkaline Phosphatase 58 U/L (34-104) 03/24/18 05:49 Total Protein 5.9 gm/dL (6.0-8.3) L 03/24/18 05:49 Albumin 3.0 gm/dL (3.7-5.3) L 03/24/18 05:49 Globulin 2.9 gm/dL 03/24/18 05:49 Albumin/Globulin Ratio 1.0 (1.0-1.8) 03/24/18 05:49 TSH 2.59 uIU/ml (0.34-5.60) 03/24/18 05:49 - Physical Exam Vitals and I&O: Vital Signs Temp 96.6 F 03/25/18 08:00 Pulse 84 03/25/18 08:00 Resp 18 03/25/18 08:00 BP 155/78 03/25/18 08:00 Pulse Ox 96 03/25/18 08:00 Intake & Output 03/24/18 03/25/18 03/25/18 18:59 06:59 18:59 Intake Total 700 1200 Balance 700 1200 Weight (lbs) 50.802 kg 50.802 kg Intake: Oral 700 1200 Other: # Voids 3 2 # Bowel Movements 1 2 Stool Characteristics Soft Soft Soft Brown Formed Formed Brown Brown Weight Source Bedscale Bedscale Active Medications: Current Medications Acetaminophen (Tylenol) 650 mg PO Q6H PRN PRN Reason: Mild Pain/Headache/T above 101 Stop: 05/22/18 22:07 Last Admin: 03/24/18 20:57 Dose: 650 mg Aripiprazole (Abilify) 20 mg PO DAILY [facility] Stop: 05/23/18 08:59 Last Admin: 03/25/18 08:20 Dose: Not Given Aspirin (Aspirin Chewable) 81 mg PO DAILY [facility] Stop: 05/23/18 08:59 Last Admin: 03/25/18 08:20 Dose: Not Given Atorvastatin Calcium (Lipitor) 20 mg PO [facility]; Protocol Stop: 05/23/18 20:59 Last Admin: 03/24/18 20:05 Dose: Not Given Bisacodyl (Dulcolax 10 Mg Supp) 10 mg RC DAILY PRN PRN Reason: Constipation Stop: 05/22/18 22:07 Cyanocobalamin (Vitamin B12) 1,000 mcg PO DAILY [facility] Stop: 05/23/18 08:59 Last Admin: 03/25/18 08:20 Dose: Not Given Docusate Sodium (Colace) 200 mg PO DAILY [facility] Stop: 05/23/18 08:59 Last Admin: 03/25/18 08:21 Dose: Not Given Ferrous Sulfate (Iron) 325 mg PO DAILY [facility] Stop: 05/23/18 08:59 Last Admin: 03/25/18 08:21 Dose: Not Given Ketorolac Tromethamine (Toradol) 30 mg IM Q6HR PRN PRN Reason: Pain (Moderate) Stop: 05/22/18 22:15 Lorazepam (Ativan) 1 mg PO Q6H PRN; Protocol PRN Reason: Anxiety/Agitation Stop: 05/22/18 22:07 Lorazepam (Ativan) 1 mg IM Q8H PRN; Protocol PRN Reason: Agitation Stop: 05/24/18 02:59 Last Admin: 03/25/18 03:05 Dose: 1 mg Magnesium Hydroxide (Milk Of Magnesia) 30 ml PO DAILY PRN PRN Reason: Constipation Stop: 05/22/18 22:07 Miscellaneous (V[employer] Prophylaxis Screen/ Admission) 1 ea [facility] PRN PRN PRN Reason: PROTOCOL Stop: 05/23/18 16:42 Valproate Sodium (Depakene) 250 mg PO BID [facility] Stop: 05/23/18 08:59 Last Admin: 03/25/18 08:21 Dose: Not Given Zolpidem Tartrate (Ambien) 5 mg PO HS PRN PRN Reason: Insomnia Stop: 05/22/18 22:07 General: Alert, No acute distress HEENT: Atraumatic Neck: Supple Cardiovascular: Regular rate Lungs: Clear to auscultation Abdomen: Bowel sounds, Soft Extremities: Other (she removed the cast of left leg) Neurological: Other (Non ambulatory) Skin: Other (Warm and dry) Psych/Mental Status: Other (Confused, agitated at moments.) - Procedures Procedures: Procedures Procedure Code Date GROUP PSYCHOTHERAPY 64833 08/26/15 GROUP PSYCHOTHERAPY GZHZZZZ 08/26/15 OTHER GROUP THERAPY 94.44 06/25/14 Assessment/Plan - Assessment Assessment: Patient is awake, alert, confused, not oriented and agitated at moments. Dx: Distal Fibular and tibial fractures involving the medial and lateral malleoli, HTN, CAD, COPD, Dementia, Schizophrenia. - Plan Plan: Patient was alreary seen by Ortho and recomended surgery but patient refused. She is continue with SNF meds but she is refusing meds. Consult with Psychiatry will be request. Case was discussed with daughter and she stated that this has happen before were patient refused all attention including meds, she will think about surgery and will call back. Will continue to monitor.
[2018-03-25] MEDS: Atorvastatin Calcium 10 MG TAB PO SCH (21:26)
[2018-03-26] MEDS: Ferrous Sulfate 325 MG TAB PO SCH (08:27)
[2018-03-26] MEDS: Multivitamin w/ Minerals Tab PO SCH (08:27)
[2018-03-26] MEDS: Aspirin 81mg Chewable Tab PO SCH (08:27)
--- NOTE | 2018-03-26 09:10 | General Progress Note ---
Subjective - Review of Systems Service Date: 03/26/18 Subjective: Patient refused to talk Objective - Results Result Diagrams: 03/24/18 05:49 03/24/18 05:49 Recent Labs: Laboratory Last Values WBC 7.2 Th/cmm (4.8-10.8) 03/24/18 05:49 RBC 3.62 Mil/cmm (3.80-5.20) L 03/24/18 05:49 Hgb 9.8 gm/dL (12-16) L 03/24/18 05:49 Hct 29.5 % (41.0-60) L 03/24/18 05:49 MCV 81.5 fl (81-100) 03/24/18 05:49 MCH 27.1 pg (27.0-31.0) 03/24/18 05:49 MCHC Differential 33.3 pg (28.0-36.0) 03/24/18 05:49 RDW 16.3 % (11.5-20.0) 03/24/18 05:49 Plt Count 197 Th/cmm (150-400) 03/24/18 05:49 MPV 8.8 fl 03/24/18 05:49 Neutrophils % 70.2 % (40.0-80.0) 03/24/18 05:49 Lymphocytes % 21.2 % (20.0-50.0) 03/24/18 05:49 Monocytes % 7.6 % (2.0-10.0) 03/24/18 05:49 Eosinophils % 0.5 % (0.0-5.0) 03/24/18 05:49 Basophils % 0.5 % (0.0-2.0) 03/24/18 05:49 Sodium 139 mEq/L (136-145) 03/24/18 05:49 Potassium 4.0 mEq/L (3.5-5.1) 03/24/18 05:49 Chloride 110 mEq/L (98-107) H 03/24/18 05:49 Carbon Dioxide 24.1 mEq/L (21.0-31.0) 03/24/18 05:49 Anion Gap 8.9 (7.0-16.0) 03/24/18 05:49 BUN 23 mg/dL (7-25) 03/24/18 05:49 Creatinine 0.9 mg/dL (0.6-1.2) 03/24/18 05:49 Est GFR ( Amer) TNP 03/24/18 05:49 Est GFR (Non-Af Amer) TNP 03/24/18 05:49 BUN/Creatinine Ratio 25.6 03/24/18 05:49 Glucose 96 mg/dL (70-105) 03/24/18 05:49 Calcium 9.9 mg/dL (8.6-10.3) 03/24/18 05:49 Total Bilirubin 0.6 mg/dL (0.3-1.0) 03/24/18 05:49 AST 14 U/L (13-39) 03/24/18 05:49 ALT 11 U/L (7-52) 03/24/18 05:49 Alkaline Phosphatase 58 U/L (34-104) 03/24/18 05:49 Total Protein 5.9 gm/dL (6.0-8.3) L 03/24/18 05:49 Albumin 3.0 gm/dL (3.7-5.3) L 03/24/18 05:49 Globulin 2.9 gm/dL 03/24/18 05:49 Albumin/Globulin Ratio 1.0 (1.0-1.8) 03/24/18 05:49 TSH 2.59 uIU/ml (0.34-5.60) 03/24/18 05:49 - Physical Exam Vitals and I&O: Vital Signs Temp 96.5 F 03/26/18 08:37 Pulse 76 03/26/18 08:37 Resp 18 03/26/18 08:37 BP 148/83 03/26/18 08:37 Pulse Ox 100 03/26/18 08:37 Intake & Output 03/25/18 03/26/18 03/26/18 18:59 06:59 18:59 Intake Total 700 240 Balance 700 240 Weight (lbs) 97.522 kg 97.522 kg Intake: Oral 700 240 Other: # Voids 3 2 # Bowel Movements 1 Stool Characteristics Soft Soft Formed Formed Brown Brown Weight Source Bedscale Bedscale Active Medications: Current Medications Acetaminophen (Tylenol) 650 mg PO Q6H PRN PRN Reason: Mild Pain/Headache/T above 101 Stop: 05/22/18 22:07 Last Admin: 03/25/18 21:49 Dose: 650 mg Aripiprazole (Abilify) 20 mg PO DAILY [facility] Stop: 05/23/18 08:59 Last Admin: 03/26/18 08:27 Dose: Not Given Aspirin (Aspirin Chewable) 81 mg PO DAILY [facility] Stop: 05/23/18 08:59 Last Admin: 03/26/18 08:27 Dose: Not Given Atorvastatin Calcium (Lipitor) 20 mg PO HS [facility]; Protocol Stop: 05/23/18 20:59 Last Admin: 03/25/18 21:26 Dose: Not Given Bisacodyl (Dulcolax 10 Mg Supp) 10 mg RC DAILY PRN PRN Reason: Constipation Stop: 05/22/18 22:07 Cyanocobalamin (Vitamin B12) 1,000 mcg PO DAILY [facility] Stop: 05/23/18 08:59 Last Admin: 03/26/18 08:27 Dose: Not Given Docusate Sodium (Colace) 200 mg PO DAILY [facility] Stop: 05/23/18 08:59 Last Admin: 03/26/18 08:27 Dose: Not Given Ferrous Sulfate (Iron) 325 mg PO DAILY [facility] Stop: 05/23/18 08:59 Last Admin: 03/26/18 08:27 Dose: Not Given Ketorolac Tromethamine (Toradol) 30 mg IM Q6HR PRN PRN Reason: Pain (Moderate) Stop: 05/22/18 22:15 Lorazepam (Ativan) 1 mg PO Q6H PRN; Protocol PRN Reason: Anxiety/Agitation Stop: 05/22/18 22:07 Lorazepam (Ativan) 1 mg IM Q8H PRN; Protocol PRN Reason: Agitation Stop: 05/24/18 02:59 Last Admin: 03/25/18 03:05 Dose: 1 mg Magnesium Hydroxide (Milk Of Magnesia) 30 ml PO DAILY PRN PRN Reason: Constipation Stop: 05/22/18 22:07 Miscellaneous (Vte Chemical Prophylaxis Screen/ Admission) 1 ea [facility] PRN PRN PRN Reason: PROTOCOL Stop: 05/23/18 16:42 Valproate Sodium (Depakene) 250 mg PO BID [facility] Stop: 05/23/18 08:59 Last Admin: 03/26/18 08:27 Dose: Not Given Zolpidem Tartrate (Ambien) 5 mg PO HS PRN PRN Reason: Insomnia Stop: 05/22/18 22:07 General: Alert, No acute distress HEENT: Atraumatic Neck: Supple Cardiovascular: Regular rate Lungs: Clear to auscultation Abdomen: Bowel sounds, Soft Extremities: Other (she removed the cast of left leg) Neurological: Other (Non ambulatory) Skin: Other (Warm and dry) Psych/Mental Status: Other (Confused, agitated at moments.) - Procedures Procedures: Procedures Procedure Code Date GROUP PSYCHOTHERAPY 92903 08/26/15 GROUP PSYCHOTHERAPY GZHZZZZ 08/26/15 OTHER GROUP THERAPY 94.44 06/25/14 Assessment/Plan - Assessment Assessment: Patient is awake, alert, confused, not oriented and agitated at moments. Dx: Distal Fibular and tibial fractures involving the medial and lateral malleoli, HTN, CAD, COPD, Dementia, Schizophrenia. - Plan Plan: Patient was alreary seen by Ortho and recomended surgery but patient refused. She is continue with SNF meds but she is refusing meds. Consult with Psychiatry will be request. I will call daughter to discuss case and she has not make a decision about surgery. Will continue to monitor.
[2018-03-26] MEDS: Atorvastatin Calcium 10 MG TAB PO SCH (21:23)
--- NOTE | 2018-03-27 08:42 | Discharge Summary ---
General Discharge Summary - Discharge Summary Date of Admission: 03/24/18 Admitting Diagnosis: Distal fibular and tibial Fracture, Schizophrenia, Dementia , HTN, CAD, COPD Discharge Date: 03/28/18 Discharge Diagnosis: Distal fibular and tibial fracture involving Medial and lateral malleoli, Schizophrenia, Dementia, HTN, CAD, COPD. Hospital Course: Patient was transferred from [facility] unit to [facility]. due that patient fall down and fracture her left leg. Patient refused surgery recommended by Ortho, she refused all medications and care, she did not wanted to talk with her daughter. Due that patient refused all medical attention she was DC to SNF, Treatment: Patient refused surgery, all medications and all medical attention. Condition at Discharge: Stable Disposition: Discharge/Transfered to SNF Home Medications: Home Medication Medication Instructions Recorded Type Acetaminophen [Tylenol] 650 mg PO Q6H PRN tab 03/28/18 Rx Aspirin [Aspirin Chewable] 81 mg PO DAILY [facility] 03/28/18 Rx Atorvastatin Calcium [Lipitor] 20 mg PO HS tab 03/28/18 Rx Bisacodyl [Dulcolax 10 Mg Supp] 10 mg RC DAILY PRN sup 03/28/18 Rx Cyanocobalamin [Vitamin B12] 1,000 mcg PO DAILY tab 03/28/18 Rx Docusate Sodium [Colace] 200 mg PO DAILY cap 03/28/18 Rx Ferrous Sulfate [Iron] 325 mg PO DAILY tab 03/28/18 Rx Ketorolac [Toradol] 30 mg IM Q6HR PRN vial 03/28/18 Rx Lorazepam [Ativan] 1 mg IM Q8H PRN vial 03/28/18 Rx Lorazepam [Ativan] 1 mg PO Q6H PRN tab 03/28/18 Rx Magnesium Hydroxide [Milk of 30 ml PO DAILY PRN udc 03/28/18 Rx Magnesia] Multivitamin w/ Minerals 1 tab PO DAILY tab 03/28/18 Rx [Theragran M] Valproic Acid [Depakene] 250 mg PO BID [facility] 03/28/18 Rx Zolpidem Tartrate [Ambien] 5 mg PO HS PRN tab 03/28/18 Rx aripIPRAZOLE [Abilify] 20 mg PO DAILY tab 03/28/18 Rx cloNIDine HCl [Catapres] 0.1 mg PO Q8H PRN tab 03/28/18 Rx Inpatient Medications: Current Medications Acetaminophen (Tylenol) 650 mg PO Q6H PRN PRN Reason: Mild Pain/Headache/T above 101 Stop: 05/22/18 22:07 Last Admin: 03/26/18 23:02 Dose: 650 mg Aripiprazole (Abilify) 20 mg PO DAILY [facility] Stop: 05/23/18 08:59 Last Admin: 03/26/18 08:27 Dose: Not Given Aspirin (Aspirin Chewable) 81 mg PO DAILY [facility] Stop: 05/23/18 08:59 Last Admin: 03/26/18 08:27 Dose: Not Given Atorvastatin Calcium (Lipitor) 20 mg PO HS [facility]; Protocol Stop: 05/23/18 20:59 Last Admin: 03/26/18 21:23 Dose: Not Given Bisacodyl (Dulcolax 10 Mg Supp) 10 mg RC DAILY PRN PRN Reason: Constipation Stop: 05/22/18 22:07 Cyanocobalamin (Vitamin B12) 1,000 mcg PO DAILY [facility] Stop: 05/23/18 08:59 Last Admin: 03/26/18 08:27 Dose: Not Given Docusate Sodium (Colace) 200 mg PO DAILY [facility] Stop: 05/23/18 08:59 Last Admin: 03/26/18 08:27 Dose: Not Given Ferrous Sulfate (Iron) 325 mg PO DAILY [facility] Stop: 05/23/18 08:59 Last Admin: 03/26/18 08:27 Dose: Not Given Ketorolac Tromethamine (Toradol) 30 mg IM Q6HR PRN PRN Reason: Pain (Moderate) Stop: 05/22/18 22:15 Lorazepam (Ativan) 1 mg PO Q6H PRN; Protocol PRN Reason: Anxiety/Agitation Stop: 05/22/18 22:07 Lorazepam (Ativan) 1 mg IM Q8H PRN; Protocol PRN Reason: Agitation Stop: 05/24/18 02:59 Last Admin: 03/25/18 03:05 Dose: 1 mg Magnesium Hydroxide (Milk Of Magnesia) 30 ml PO DAILY PRN PRN Reason: Constipation Stop: 05/22/18 22:07 Miscellaneous (Vte Chemical Prophylaxis Screen/ Admission) 1 ea [facility] PRN PRN PRN Reason: PROTOCOL Stop: 05/23/18 16:42 Valproate Sodium (Depakene) 250 mg PO BID [facility] Stop: 05/23/18 08:59 Last Admin: 03/26/18 16:23 Dose: Not Given Zolpidem Tartrate (Ambien) 5 mg PO HS PRN PRN Reason: Insomnia Stop: 05/22/18 22:07 Discharge Diet: Regular Consults and Follow-Up: Ben De Souza [Primary Care Provider] - Consulting Speciality: Ortho, Psychology, Other (Psychiatry and PCP) Instructions: Chronic Obstructive Pulmonary Disease, Tibial and Fibular Fracture, Adult, Ankle Fracture, Hypertension
[2018-03-27] MEDS: Aspirin 81mg Chewable Tab PO SCH (09:00)
[2018-03-27] MEDS: Multivitamin w/ Minerals Tab PO SCH (09:00)
[2018-03-27] MEDS: Ferrous Sulfate 325 MG TAB PO SCH (09:00)
--- NOTE | 2018-03-27 10:20 | Consultation ---
DATE OF CONSULTATION: 03/26/2018 HISTORY OF PRESENT ILLNESS: A 78-year-old female who had been a patient in the [facility] previously. She somehow fell, injured her left ankle. I have seen this patient in the past in [facility] as well as in [facility] in the [facility]. The patient has had episodes in the past of unruly behaviors, agitation. The patient was sent over from the [facility] Unit because of the fall. The patient is refusing to speak with me. She typically states that she only wants to see her private psychiatrist who in fact she rarely sees of ever. The patient states that she wants to be left alone and is resting and watching TV. "I don't know you," although I have seen her at least a dozen times in the past. The patient typically refuses her medications and continues to refuse medications including Abilify, pain medications. She is eating. PAST PSYCHIATRIC HISTORY: Hospitalizations in the past, likely history of bipolar. SOCIAL HISTORY: Coming from a [facility] in [place]. It is unclear what her social support systems are. Medications were noted. MENTAL STATUS EXAMINATION: Stated age, little eye contact. Speech, decreased content, devoid and mood "fine." Affect flat. Thought processes were grossly linear, but difficult to fully assess. No overt SI or HI. Difficult to assess for any further psychotic symptoms. Insight and judgment diminished. PROVISIONAL DIAGNOSIS: Bipolar. Under medical, please see full H and P. RECOMMENDATIONS AND PLAN: The patient may need further [facility] placement and will consider a [facility] petition this time given her refusals in the past. I am also trying to get in touch with Dr. De Souza. JOB# [id number]
[2018-03-27] MEDS: Atorvastatin Calcium 10 MG TAB PO SCH (21:25)
--- NOTE | 2018-03-28 01:07 | Consultation ---
DATE OF CONSULTATION: 03/27/2018 HISTORY OF PRESENT ILLNESS: A 78-year-old female patient in the [facility]. She fell and injured her ankle, refusing to speak with me, "It is my right to refuse," does not want to talk to me, points out the door, wants me to leave. MENTAL STATUS EXAMINATION: Stated age, little eye contact, "get out," is what she tells me, no overt SI or HI. PROVISIONAL DIAGNOSIS: Bipolar. RECOMMENDATIONS AND PLAN: No behaviors at this time. Per nursing staff, she has been fairly calm, cooperative, taking Tylenol as needed, but refusing her psychiatric medications. If there are no behaviors or agitation, no escalation of behaviors then the patient may be able to step down to a senior living facility. I note that there were issues going on at the senior living, so I think that the [facility] placement may be a good option, so that she can be stabilized. Possibly a [facility] petition can be filed. JOB# [id number]
[2018-03-28] MEDS: Ferrous Sulfate 325 MG TAB PO SCH (08:27)
[2018-03-28] MEDS: Aspirin 81mg Chewable Tab PO SCH (08:27)
[2018-03-28] MEDS: Multivitamin w/ Minerals Tab PO SCH (08:27)
--- NOTE | 2018-03-28 12:11 | General Progress Note ---
Subjective - Review of Systems Service Date: 03/28/18 Subjective: Patient refused to talk Objective - Results Result Diagrams: 03/24/18 05:49 03/24/18 05:49 Recent Labs: Laboratory Last Values WBC 7.2 Th/cmm (4.8-10.8) 03/24/18 05:49 RBC 3.62 Mil/cmm (3.80-5.20) L 03/24/18 05:49 Hgb 9.8 gm/dL (12-16) L 03/24/18 05:49 Hct 29.5 % (41.0-60) L 03/24/18 05:49 MCV 81.5 fl (81-100) 03/24/18 05:49 MCH 27.1 pg (27.0-31.0) 03/24/18 05:49 MCHC Differential 33.3 pg (28.0-36.0) 03/24/18 05:49 RDW 16.3 % (11.5-20.0) 03/24/18 05:49 Plt Count 197 Th/cmm (150-400) 03/24/18 05:49 MPV 8.8 fl 03/24/18 05:49 Neutrophils % 70.2 % (40.0-80.0) 03/24/18 05:49 Lymphocytes % 21.2 % (20.0-50.0) 03/24/18 05:49 Monocytes % 7.6 % (2.0-10.0) 03/24/18 05:49 Eosinophils % 0.5 % (0.0-5.0) 03/24/18 05:49 Basophils % 0.5 % (0.0-2.0) 03/24/18 05:49 Sodium 139 mEq/L (136-145) 03/24/18 05:49 Potassium 4.0 mEq/L (3.5-5.1) 03/24/18 05:49 Chloride 110 mEq/L (98-107) H 03/24/18 05:49 Carbon Dioxide 24.1 mEq/L (21.0-31.0) 03/24/18 05:49 Anion Gap 8.9 (7.0-16.0) 03/24/18 05:49 BUN 23 mg/dL (7-25) 03/24/18 05:49 Creatinine 0.9 mg/dL (0.6-1.2) 03/24/18 05:49 Est GFR ( Amer) TNP 03/24/18 05:49 Est GFR (Non-Af Amer) TNP 03/24/18 05:49 BUN/Creatinine Ratio 25.6 03/24/18 05:49 Glucose 96 mg/dL (70-105) 03/24/18 05:49 Calcium 9.9 mg/dL (8.6-10.3) 03/24/18 05:49 Total Bilirubin 0.6 mg/dL (0.3-1.0) 03/24/18 05:49 AST 14 U/L (13-39) 03/24/18 05:49 ALT 11 U/L (7-52) 03/24/18 05:49 Alkaline Phosphatase 58 U/L (34-104) 03/24/18 05:49 Total Protein 5.9 gm/dL (6.0-8.3) L 03/24/18 05:49 Albumin 3.0 gm/dL (3.7-5.3) L 03/24/18 05:49 Globulin 2.9 gm/dL 03/24/18 05:49 Albumin/Globulin Ratio 1.0 (1.0-1.8) 03/24/18 05:49 TSH 2.59 uIU/ml (0.34-5.60) 03/24/18 05:49 - Physical Exam Vitals and I&O: Vital Signs Temp 97.4 F 03/28/18 11:44 Pulse 79 03/28/18 11:44 Resp 18 03/28/18 11:44 BP 121/69 03/28/18 11:44 Pulse Ox 99 03/28/18 11:44 Intake & Output 03/27/18 03/28/18 03/28/18 18:59 06:59 18:59 Intake Total 1800 125 Balance 1800 125 Weight (lbs) 97.522 kg 95.663 kg Intake: Oral 1800 125 Other: # Voids 3 2 # Bowel Movements 1 0 Weight Source Bedscale Bedscale Active Medications: Current Medications Acetaminophen (Tylenol) 650 mg PO Q6H PRN PRN Reason: Mild Pain/Headache/T above 101 Stop: 05/22/18 22:07 Last Admin: 03/27/18 21:26 Dose: 650 mg Aripiprazole (Abilify) 20 mg PO DAILY [facility] Stop: 05/23/18 08:59 Last Admin: 03/28/18 08:27 Dose: Not Given Aspirin (Aspirin Chewable) 81 mg PO DAILY [facility] Stop: 05/23/18 08:59 Last Admin: 03/28/18 08:27 Dose: Not Given Atorvastatin Calcium (Lipitor) 20 mg PO HS [facility]; Protocol Stop: 05/23/18 20:59 Last Admin: 03/27/18 21:25 Dose: Not Given Bisacodyl (Dulcolax 10 Mg Supp) 10 mg RC DAILY PRN PRN Reason: Constipation Stop: 05/22/18 22:07 Cyanocobalamin (Vitamin B12) 1,000 mcg PO DAILY [facility] Stop: 05/23/18 08:59 Last Admin: 03/28/18 08:27 Dose: Not Given Docusate Sodium (Colace) 200 mg PO DAILY [facility] Stop: 05/23/18 08:59 Last Admin: 03/28/18 08:27 Dose: Not Given Ferrous Sulfate (Iron) 325 mg PO DAILY [facility] Stop: 05/23/18 08:59 Last Admin: 03/28/18 08:27 Dose: Not Given Ketorolac Tromethamine (Toradol) 30 mg IM Q6HR PRN PRN Reason: Pain (Moderate) Stop: 05/22/18 22:15 Lorazepam (Ativan) 1 mg PO Q6H PRN; Protocol PRN Reason: Anxiety/Agitation Stop: 05/22/18 22:07 Lorazepam (Ativan) 1 mg IM Q8H PRN; Protocol PRN Reason: Agitation Stop: 05/24/18 02:59 Last Admin: 03/25/18 03:05 Dose: 1 mg Magnesium Hydroxide (Milk Of Magnesia) 30 ml PO DAILY PRN PRN Reason: Constipation Stop: 05/22/18 22:07 Miscellaneous (Vte Chemical Prophylaxis Screen/ Admission) 1 ea [facility] PRN PRN PRN Reason: PROTOCOL Stop: 05/23/18 16:42 Valproate Sodium (Depakene) 250 mg PO BID [facility] Stop: 05/23/18 08:59 Last Admin: 03/28/18 08:28 Dose: Not Given Zolpidem Tartrate (Ambien) 5 mg PO HS PRN PRN Reason: Insomnia Stop: 05/22/18 22:07 General: Alert, No acute distress HEENT: Atraumatic Neck: Supple Cardiovascular: Regular rate Lungs: Clear to auscultation Abdomen: Bowel sounds, Soft Extremities: Other (She removed cast, there is edema of left leg. ) Neurological: Other (Non ambulatory) Skin: Other (Warm and dry) Psych/Mental Status: Other (Confused, agitated at moments.) - Procedures Procedures: Procedures Procedure Code Date GROUP PSYCHOTHERAPY 68243 08/26/15 GROUP PSYCHOTHERAPY GZHZZZZ 08/26/15 OTHER GROUP THERAPY 94.44 06/25/14 Assessment/Plan - Assessment Assessment: Patient is awake, alert, confused, not oriented and agitated at moments. Dx: Distal Fibular and tibial fractures involving the medial and lateral malleoli, HTN, CAD, COPD, Dementia, Schizophrenia. - Plan Plan: Patient was alreary seen by Ortho and recomended surgery but patient refused. She is continue with SNF meds but she is refusing meds, surgery and any attention. Daughter came but patient refused to talk to her. Patient was not DC because refused to go back to [facility]. 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 Will continue to monitor.
--- NOTE | 2018-03-28 16:48 | Progress Notes ---
DATE: 03/28/2018 SUBJECTIVE: A 78-year-old female with history of unspecified mental illness. Staff noting she remains suspicious, refusing most of her medications. She is able to verbalize her needs. No overt behaviors, no agitation, no aggressive behaviors. The patient refusing to speak with me, stating "go away, I refuse to speak with you." Past psych history noted. MENTAL STATUS EXAMINATION: Stated age. Fair eye contact, yells at me. Mood irritable. Affect flat. Thought processes are to assess. No suicidal gestures. No overt HI. Unclear psychosis. PROVISIONAL DIAGNOSIS: No changes. RECOMMENDATIONS AND PLAN: The patient is refusing interview. Medications were noted. We will monitor and follow up. [facility]# [id number]
== END 2018-03-28 16:20 | DRG 563 ==
LOC: MSI 20:54
PROVIDERS: ADMIT General Practice; ATTEND General Practice
DX: S82.842A Displaced bimalleolar fracture of left lower leg, initial encounter for closed fracture (principal); E44.1 Mild protein-calorie malnutrition; S82.492A Other fracture of shaft of left fibula, initial encounter for closed fracture; S82.52XA Displaced fracture of medial malleolus of left tibia, initial encounter for closed fracture; I25.10 Atherosclerotic heart disease of native coronary artery without angina pectoris; I10 Essential (primary) hypertension; J44.9 Chronic obstructive pulmonary disease, unspecified; F31.9 Bipolar disorder, unspecified; F03.90 Unspecified dementia, unspecified severity, without behavioral disturbance, psychotic disturbance, mood disturbance, and anxiety; F20.9 Schizophrenia, unspecified; W18.30XA Fall on same level, unspecified, initial encounter; Y93.89 Activity, other specified; Y92.89 Other specified places as the place of occurrence of the external cause; Y99.8 Other external cause status; Z79.82 Long term (current) use of aspirin; Z88.5 Allergy status to narcotic agent; Z88.0 Allergy status to penicillin; Z88.1 Allergy status to other antibiotic agents
CPT/HCPCS: 36415-UA; 80053-TC; 84443-TC; 85025-TC; J2060; Z7610

== ENCOUNTER 2019-08-01 21:15 | Inpatient (IN) | payer MEDICARE, BC ==
[2019-08-02 12:12] VITALS: BP 159/83
[2019-08-02] MEDS ORDERED: Magnesium Hydroxide (MOM) 30 mL UDC PO PRN (12:21)
[2019-08-02] MEDS ORDERED: Maalox 30 mL Cup PO PRN (12:21)
[2019-08-02] MEDS ORDERED: Acetaminophen 500 MG TAB PO PRN (12:21)
--- NOTE | 2019-08-02 16:18 | History & Physical ---
ADMIT DATE: 08/02/2019 CHIEF COMPLAINT: Abdominal pain. HISTORY OF PRESENT ILLNESS: We have a 79-year-old female who was admitted due to agitation. The patient resides at a detention. No chest pain, shortness of breath, no nausea, vomiting, abdominal pain. PAST MEDICAL HISTORY: 1. History of seizures. 2. Hypertension. 3. Chronic obstructive pulmonary disease. 4. Atherosclerosis. 5. Anemia. 6. Hyperlipidemia. MEDICATIONS: List reviewed. ALLERGIES: None. SOCIAL HISTORY: Tobacco, IV drugs, ETOH negative. REVIEW OF SYSTEMS: Noncontributory. PHYSICAL EXAMINATION: VITAL SIGNS: Temperature 98.6, pulse 70, respirations 20, blood pressure 130/60. HEENT: Normocephalic, atraumatic head exam. NECK: Supple. CARDIOVASCULAR: Regular rate and rhythm. LUNGS: Clear. ABDOMEN: Soft, nontender. EXTREMITIES: No edema, cyanosis or clubbing. ASSESSMENT AND PLAN: 1. Dementia. 2. Hypertension. 3. Hyperlipidemia. The patient will continue supportive care. JOB# [id number]
[2019-08-03] MEDS: Multivitamin Tab PO SCH (09:16)
--- NOTE | 2019-08-03 16:31 | Psychiatric Evaluation ---
DATE OF SERVICE: 08/03/2019 HISTORY OF PRESENT ILLNESS: A 79-year-old female, placed on hold by this clinician, was very aggressive, agitated, ____ aggressive towards staff, believing that she owns the building, did not need to follow the rules and was noted to be agitated, throwing items, food, resistive to care. The patient is AO to name, place, she knows the month, not the year. She knows the day. She does not know why she is here, "for an evaluation." Denies depression. States she is anxious, wants to go home. PAST PSYCHIATRIC HISTORY: The patient states that she is perfectly fine, seems she has a history of underlying mood disorder. MEDICAL: Please see full H and P. SOCIAL HISTORY: Coming from a [facility] facility, needing a higher level of nursing care. MEIDCATIONS: Noted. MENTAL STATUS EXAMINATION: Stated age. Fair eye contact. Somewhat grandiose appearing, demanding to go home, stating it is her right to leave immediately and I need to obey her. Poor impulse control. Fair orientation. No overt SI or HI. No overt hallucinations. DIAGNOSES: Mood unspecified. MEDICAL: Please see full H and P. ESTIMATED LENGTH OF STAY: 7-10 days. ASSESSMENT: The patient requiring hospitalization, agitated, aggressive, not safe for lower level of care. CONDITIONS FOR DISCHARGE: Improved mood, improved affect, better control of mood symptoms. We will make appropriate medication adjustments. JOB# [id number]
[2019-08-04] MEDS: Multivitamin Tab PO SCH (09:05)
--- NOTE | 2019-08-04 13:02 | Progress Notes ---
DATE: 08/04/2019 SUBJECTIVE: The patient is a 79-year-old female who was apparently aggressive at the [facility] facility, agitated, aggressive towards staff, delusional, believing that she owns the building and did not need to follow any of the rules, was disrupting the milieu, trying to escalate even other residents in the [facility] facility, throwing items, resistive to care, trying to hit staff. The patient stating that she is ready to leave now. She does not want to be here any longer. Knows she is in the hospital, knows the year. She does not why she is here, "just for evaluation." Mood "okay." She is demanding to leave. Staff noting she needs lot of prompting, redirections. Still aggressive, agitated at times,rude. Medications reviewed. Labs were reviewed. Vitals were reviewed. No overt side effects. No EPS, no akathisia. Currently right now, she is resting pretty comfortably. Blood pressure 125/74, pulse of 79. ASSESSMENT: A 79-year-old female with ongoing behavioral disturbances, very impulsive, unpredictable. We will continue dosing of Abiliftootie Depakote. She may need a dose adjustment. JOB# [id number]
[2019-08-05] MEDS: Multivitamin Tab PO SCH ×2 (08:17→09:11)
--- NOTE | 2019-08-05 15:10 | Internal Medicine Prog Note ---
Internal Medicine Subjective - Subjective Service Date: 08/05/19 Patient seen and examined:: without staff Patient is:: awake, asleep Internal Medicine Objective - Results Recent Labs: Laboratory Last Values POC Glucose 132 MG/DL (70 - 105) H 08/02/19 15:03 - Physical Exam Vitals and I&O: Vital Signs Temp 98.1 F 08/05/19 06:41 Pulse 74 08/05/19 06:41 Resp 19 08/05/19 06:41 BP 129/73 08/05/19 06:41 Pulse Ox 98 08/05/19 06:41 Intake & Output 08/04/19 08/05/19 08/05/19 18:59 06:59 18:59 Intake Total 900 360 Balance 900 360 Intake: Oral 900 360 Other: # Voids 3 1 # Bowel Movements 1 Stool Characteristics Soft Active Medications: Current Medications Acetaminophen (Tylenol) 650 mg PO Q4H PRN PRN Reason: Pain (Mild 1-3) Stop: 10/01/19 12:20 Last Admin: 08/04/19 21:42 Dose: 650 mg Acetaminophen (Tylenol Extra Strength) 1,000 mg PO Q6H PRN PRN Reason: Pain (Moderate 4-6) Stop: 10/01/19 12:20 Al Hydrox/Mg Hydrox/Simethicone (Maalox) 30 ml PO Q4HR PRN PRN Reason: GI DISTRESS Stop: 10/01/19 12:20 Aripiprazole (Abilify) 20 mg PO DAILY [facility]; Protocol Stop: 10/03/19 08:59 Last Admin: 08/05/19 09:11 Dose: Not Given Famotidine (Pepcid) 20 mg PO DAILY [facility] Stop: 10/02/19 08:59 Last Admin: 08/05/19 09:11 Dose: Not Given Ibuprofen (Motrin) 400 mg PO Q4H PRN PRN Reason: Pain (Severe 7-10) Stop: 10/01/19 12:20 Magnesium Hydroxide (Milk Of Magnesia) 30 ml PO HS PRN PRN Reason: Constipation Multivitamins/Vitamin C (Theragran) 1 tab PO DAILY [facility] Stop: 10/02/19 08:59 Last Admin: 08/05/19 09:11 Dose: Not Given Nitrofurantoin Macrocrystals (Macrobid) 100 mg PO BID [facility]; Protocol Stop: 08/10/19 16:59 Last Admin: 08/05/19 09:11 Dose: Not Given Valproate Sodium (Depakene) 250 mg PO BID [facility]; Protocol Stop: 10/03/19 08:59 Last Admin: 08/05/19 09:11 Dose: Not Given Zolpidem Tartrate (Ambien) 5 mg PO HS PRN PRN Reason: Insomnia Stop: 10/01/19 12:20 Last Admin: 08/03/19 21:25 Dose: 5 mg HEENT: NC/AT Neck: Supple Lungs: CTAB Cardiovascular: RRR, Normal S1, Normal S2 Abdomen: soft Extremities: clear - Procedures Procedures: Procedures Procedure Code Date GROUP PSYCHOTHERAPY 93566 08/26/15 GROUP PSYCHOTHERAPY GZHZZZZ 08/26/15 OTHER GROUP THERAPY 94.44 06/25/14 Internal Medicine Assmt/Plan - Assessment Assessment: 1. Dementia 2. HTN 3. HLD - Plan Plan: continue supportive care
--- NOTE | 2019-08-05 16:24 | Progress Notes ---
DATE: 08/05/2019 SUBJECTIVE: A 79-year-old female, currently in the hospital, still upset, wanting to leave, not quite sure why she is here, minimizing her symptoms, somewhat irritable on exam, ruminative. Fair sleep and appetite, mood, "okay, but I am ready to go". Staff noting she gets upset sometimes, somewhat impulsive, unpredictable behaviors, stating that she does not belong here and wants to leave immediately. Poor insight, very guarded about any thought content or symptoms. Medications were reviewed. Labs were reviewed. Vitals were reviewed. No overt side effects to medications and good tolerability thus far. ASSESSMENT: A 79-year-old female with ongoing symptoms, very impulsive, unpredictable, irritable. PLAN: We will continue inpatient monitoring. Concerns that she may act out upon her impulses, strike out as she was doing at the halfway. We will continue to slowly titrate and adjust medications. JOB# [id number]
[2019-08-06] MEDS: Multivitamin Tab PO SCH (08:52)
--- NOTE | 2019-08-06 16:05 | Progress Notes ---
DATE: 08/06/2019 SUBJECTIVE: A 79-year-old female, currently in the hospital, calm, generally cooperative, stating she is sleeping okay, eating okay. Staff noting she is somewhat irritable, somewhat impulsive, unpredictable, no complaints, hoping to go home soon. Medications were reviewed. Labs reviewed. Vitals reviewed. ASSESSMENT: A 79-year-old female, calm, limited [id number], irritable, does not want to really talk with me much. Staff noting she has been more redirectable, no agitation, somewhat impulsive, unpredictable, however, was fairly guarded, not the best historian, minimizing the reasons for her admission. PLAN: We will continue inpatient monitoring. Continue to adjust and titrate medications. Medications were reviewed. JOB# [id number]
[2019-08-07] MEDS: Multivitamin Tab PO SCH (08:00)
--- NOTE | 2019-08-07 14:26 | Internal Medicine Prog Note ---
Internal Medicine Subjective - Subjective Service Date: 08/07/19 Patient seen and examined:: without staff Patient is:: awake, asleep Per staff patient has:: no adverse event, no episodes of fall Internal Medicine Objective - Results Recent Labs: Laboratory Last Values POC Glucose 132 MG/DL (70 - 105) H 08/02/19 15:03 - Physical Exam Vitals and I&O: Vital Signs Temp 97.7 F 08/07/19 14:14 Pulse 86 08/07/19 14:14 Resp 20 08/07/19 14:14 BP 154/75 08/07/19 14:14 Pulse Ox 96 08/07/19 14:14 Intake & Output 08/06/19 08/07/19 08/07/19 18:59 06:59 18:59 Intake Total 1400 240 Balance 1400 240 Intake: Oral 1400 240 Other: # Voids 4 2 # Bowel Movements 0 Active Medications: Current Medications Acetaminophen (Tylenol) 650 mg PO Q4H PRN PRN Reason: Pain (Mild 1-3) Stop: 10/01/19 12:20 Last Admin: 08/06/19 21:18 Dose: 650 mg Acetaminophen (Tylenol Extra Strength) 1,000 mg PO Q6H PRN PRN Reason: Pain (Moderate 4-6) Stop: 10/01/19 12:20 Al Hydrox/Mg Hydrox/Simethicone (Maalox) 30 ml PO Q4HR PRN PRN Reason: GI DISTRESS Stop: 10/01/19 12:20 Famotidine (Pepcid) 20 mg PO DAILY [facility] Stop: 10/02/19 08:59 Last Admin: 08/07/19 08:00 Dose: 20 mg Ibuprofen (Motrin) 400 mg PO Q4H PRN PRN Reason: Pain (Severe 7-10) Stop: 10/01/19 12:20 Multivitamins/Vitamin C (Theragran) 1 tab PO DAILY [facility] Stop: 10/02/19 08:59 Last Admin: 08/07/19 08:00 Dose: Not Given Nitrofurantoin Macrocrystals (Macrobid) 100 mg PO BID [facility]; Protocol Stop: 08/10/19 16:59 Last Admin: 08/07/19 08:00 Dose: Not Given Quetiapine Fumarate (Seroquel) 50 mg PO HS [facility]; Protocol Stop: 10/06/19 20:59 Valproate Sodium (Depakene) 250 mg PO BID [facility]; Protocol Stop: 10/03/19 08:59 Last Admin: 08/07/19 08:00 Dose: Not Given Zolpidem Tartrate (Ambien) 5 mg PO HS PRN PRN Reason: Insomnia Stop: 10/01/19 12:20 Last Admin: 08/03/19 21:25 Dose: 5 mg HEENT: NC/AT Neck: Supple Lungs: CTAB Cardiovascular: RRR, Normal S1, Normal S2 Abdomen: soft Extremities: clear Neurological: no change - Procedures Procedures: Procedures Procedure Code Date GROUP PSYCHOTHERAPY 39796 08/26/15 GROUP PSYCHOTHERAPY GZHZZZZ 08/26/15 OTHER GROUP THERAPY 94.44 06/25/14 Internal Medicine Assmt/Plan - Assessment Assessment: 1. Dementia 2. HTN 3. HLD - Plan Plan: continue supportive care d.w r.nSteve Nutritional Asmnt/Malnutr-PDOC - Dietary Evaluation Malnutrition Findings (Please click <Entered> for more info): Nutritional Asmnt/Malnutrition Start: 08/07/19 11: 48 Text: Status: Complete Freq: Protocol: Document 08/07/19 11:48 ANTHONY (Rec: 08/07/19 11:53 ANTHONY [email or web address] -[id number]) Nutritional Asmnt/Malnutrition Patient General Information Nutritional Screening Moderate Risk Diagnosis Psychosis Pertinent Medical Hx/Surgical Hx HTN, COPD, Atherosclerosis, Anemia, Hyperlipidemia Subjective Information Pt is a 79-year-old female admitted on 08/01 d/t agitation . Pt is eating an estimated 95 % of meals Per Meal/Nutrition Activity Record. Dietary is currently providing an estimated 2352 kcals and 105gm Pro, per Pt PO intake this is providing an estimated 2230 kcals and 99gm Pro to meet 100 +% kcal and 100+% Pro needs. Had diet clerks reduce kcals and protein down to estimated need range as pt is eating about 95% meals. Anthropometrics Ht:56 Wt: 210 LB (95.45 kg) BMI: 34.04 (Obese I) GI/ Skin Integrity GI: Gerd, soft, non-tender I/O: 1640/ not noted Last BM: 08/03 x1 Skin: WNL, Intact Mansoor: 16 Diet Order: 2 Gram Sodium Estimated Energy Needs: (Obese , ABW) 2840-9091 kcals (20-25 kcals/ kg) 55-70g Pro (0.8-1.0 g/kg) 6467-1395 ml (20-25 ml/kg) Current Diet Order/ Nutrition Support 2 Gram Sodium Pertinent Medications Maalox (PRN), Theragran, Pepcid Pertinent Labs 08/01 POC Glucose 132 07/30 Glucose 134, Bun/Cr 22/0. 94, A1C 5.4% Nutritional Hx/Data Height 1.68 m Height (Calculated Centimeters) 167.6 Current Weight (lbs) 95.254 kg Weight (Calculated Kilograms) 95.3 Weight (Calculated Grams) 48699.4 [place] Body Weight 130 LB (59.09 kg) % [place] Body Weight 162 Body Mass Index (BMI) 33.9 Weight Status Obese GI Symptoms GI Symptoms None Last BM 08/03 x1 Skin Integrity/Comment: Skin: WNL, Intact Mansoor: 16 Current %PO Good (75-100%) Estimated Nutritional Goals BEE in Kcals: Adj wt of IBW Calories/Kcals/Kg 20-25 Kcals Calculated 0543-6279 Protein: Adj wt of IBW Protein g/k.8-1.0 Protein Calculated 55-70 Fluid: ml 1408-3128 ml (20-25 ml/kg) Nutritional Problem 1. Problem Problem Obese (Class I) Etiology related to chronic energy overconsumption intake Signs/Symptoms: as evidenced by BMI >18.5 (34. 04). Malnutrition Related to Morbid Obesity Malnutrition related to morbid obesity No Intervention/Recommendation Comments Continue 2-gram sodium diet as tolerated. Expected Outcomes/Goals Expected Outcomes/Goals 1. PO intake to continue to meet >75% of estimated nutritional needs. 2. Monitor PO intake, wt, nutrition related labs, and skin integrity. 3. Gradual weight loss (0.5-1. 0 Lb/week) trending toward IBW preferred. 4. F/U as low risk in 7-10 days, 08/13-08/16.
--- NOTE | 2019-08-07 22:44 | Progress Notes ---
DATE: SUBJECTIVE: The patient seen, chart reviewed, discussed with staff. The patient is in the hospital. She had actually been in this hospital previously in March 2018. It was a consultation note. She had been refusing her psychiatric medications at that time as well. She was admitted to this unit March of last year. She had been agitated, not taking medications. I thought to Riese her back then, but she was calm. She remains calm right now, now refusing medications, ____ take Abilify, stating that she is perfectly fine. There is nothing wrong with her. She does not need medications, irritable, upset, multiple psychiatric hospitalizations in the past, seen by Dr. Phipps in the past as well, concerns for dementia at that time, refusing care. Fair sleep and appetite. Staff noting she seems paranoid to staff, only slept for about 4 hours, saying there is nothing wrong with her, preoccupied with own thoughts, seems to be mumbling to self, believing staff may be trying to harm her, extensive time was spent with the patient, explained to her the risks and benefits of the medications and encouraging her to take it, but she is pretty ruminative and circumstantial, asks the same questions over. ASSESSMENT: A 79-year-old female, refusing treatment, complex case, difficult to manage symptoms given her poor compliance. PLAN: We will continue inpatient monitoring. We will transition over to a different medication to see if she is amenable to that. We will transition over to dosing of Seroquel. We will continue to monitor and followup. Psychoeducation provided at length. JOB# [id number]
[2019-08-08] MEDS: Multivitamin Tab PO SCH (08:33)
--- NOTE | 2019-08-08 15:49 | Internal Medicine Prog Note ---
Internal Medicine Subjective - Subjective Service Date: 08/08/19 Patient is:: awake, asleep Per staff patient has:: no adverse event, no episodes of fall Internal Medicine Objective - Results Recent Labs: Laboratory Last Values POC Glucose 132 MG/DL (70 - 105) H 08/02/19 15:03 - Physical Exam Vitals and I&O: Vital Signs Temp 97.5 F 08/08/19 14:00 Pulse 74 08/08/19 14:00 Resp 20 08/08/19 14:00 BP 135/50 08/08/19 14:00 Pulse Ox 99 08/08/19 14:00 Intake & Output 08/07/19 08/08/19 08/08/19 18:59 06:59 18:59 Intake Total 120 Balance 120 Intake: Oral 120 Other: # Voids 3 1 # Bowel Movements 1 0 Active Medications: Current Medications Acetaminophen (Tylenol) 650 mg PO Q4H PRN PRN Reason: Pain (Mild 1-3) Stop: 10/01/19 12:20 Last Admin: 08/07/19 21:09 Dose: 325 mg Acetaminophen (Tylenol Extra Strength) 1,000 mg PO Q6H PRN PRN Reason: Pain (Moderate 4-6) Stop: 10/01/19 12:20 Al Hydrox/Mg Hydrox/Simethicone (Maalox) 30 ml PO Q4HR PRN PRN Reason: GI DISTRESS Stop: 10/01/19 12:20 Famotidine (Pepcid) 20 mg PO DAILY [facility] Stop: 10/02/19 08:59 Last Admin: 08/08/19 08:32 Dose: 20 mg Ibuprofen (Motrin) 400 mg PO Q4H PRN PRN Reason: Pain (Severe 7-10) Stop: 10/01/19 12:20 Multivitamins/Vitamin C (Theragran) 1 tab PO DAILY [facility] Stop: 10/02/19 08:59 Last Admin: 08/08/19 08:33 Dose: Not Given Nitrofurantoin Macrocrystals (Macrobid) 100 mg PO BID [facility]; Protocol Stop: 08/10/19 16:59 Last Admin: 08/08/19 08:33 Dose: 100 mg Quetiapine Fumarate (Seroquel) 50 mg PO HS [facility]; Protocol Stop: 10/06/19 20:59 Valproate Sodium (Depakene) 250 mg PO BID [facility]; Protocol Stop: 10/03/19 08:59 Last Admin: 08/08/19 08:32 Dose: Not Given Zolpidem Tartrate (Ambien) 5 mg PO HS PRN PRN Reason: Insomnia Stop: 10/01/19 12:20 Last Admin: 08/03/19 21:25 Dose: 5 mg HEENT: NC/AT Neck: Supple Lungs: CTAB Cardiovascular: RRR, Normal S1, Normal S2 Abdomen: soft Extremities: clear Neurological: no change - Procedures Procedures: Procedures Procedure Code Date GROUP PSYCHOTHERAPY 72085 08/26/15 GROUP PSYCHOTHERAPY GZHZZZZ 08/26/15 OTHER GROUP THERAPY 94.44 06/25/14 Internal Medicine Assmt/Plan - Assessment Assessment: 1. Dementia 2. HTN 3. HLD - Plan Plan: continue supportive care d.w r.n. Nutritional Asmnt/Malnutr-PDOC - Dietary Evaluation Malnutrition Findings (Please click <Entered> for more info): Nutritional Asmnt/Malnutrition Start: 08/07/19 11: 48 Text: Status: Complete Freq: Protocol: Document 08/07/19 11:48 ANTHONY (Rec: 08/07/19 11:53 ANTHONY KRISTINA-CTXTS -[id number]) Nutritional Asmnt/Malnutrition Patient General Information Nutritional Screening Moderate Risk Diagnosis Psychosis Pertinent Medical Hx/Surgical Hx HTN, COPD, Atherosclerosis, Anemia, Hyperlipidemia Subjective Information Pt is a 79-year-old female admitted on 08/01 d/t agitation . Pt is eating an estimated 95 % of meals Per Meal/Nutrition Activity Record. Dietary is currently providing an estimated 2352 kcals and 105gm Pro, per Pt PO intake this is providing an estimated 2230 kcals and 99gm Pro to meet 100 +% kcal and 100+% Pro needs. Had diet clerks reduce kcals and protein down to estimated need range as pt is eating about 95% meals. Anthropometrics Ht:56 Wt: 210 LB (95.45 kg) BMI: 34.04 (Obese I) GI/ Skin Integrity GI: Gerd, soft, non-tender I/O: 1640/ not noted Last BM: 08/03 x1 Skin: WNL, Intact Mansoor: 16 Diet Order: 2 Gram Sodium Estimated Energy Needs: (Obese , ABW) 2061-8021 kcals (20-25 kcals/ kg) 55-70g Pro (0.8-1.0 g/kg) 6999-8197 ml (20-25 ml/kg) Current Diet Order/ Nutrition Support 2 Gram Sodium Pertinent Medications Maalox (PRN), Theragran, Pepcid Pertinent Labs 08/01 POC Glucose 132 07/30 Glucose 134, Bun/Cr 22/0. 94, A1C 5.4% Nutritional Hx/Data Height 1.68 m Height (Calculated Centimeters) 167.6 Current Weight (lbs) 95.254 kg Weight (Calculated Kilograms) 95.3 Weight (Calculated Grams) 14763.4 [place] Body Weight 130 LB (59.09 kg) % [place] Body Weight 162 Body Mass Index (BMI) 33.9 Weight Status Obese GI Symptoms GI Symptoms None Last BM 08/03 x1 Skin Integrity/Comment: Skin: WNL, Intact Mansoor: 16 Current %PO Good (75-100%) Estimated Nutritional Goals BEE in Kcals: Adj wt of IBW Calories/Kcals/Kg 20-25 Kcals Calculated 6638-1925 Protein: Adj wt of IBW Protein g/k.8-1.0 Protein Calculated 55-70 Fluid: ml 3769-9068 ml (20-25 ml/kg) Nutritional Problem 1. Problem Problem Obese (Class I) Etiology related to chronic energy overconsumption intake Signs/Symptoms: as evidenced by BMI >18.5 (34. 04). Malnutrition Related to Morbid Obesity Malnutrition related to morbid obesity No Intervention/Recommendation Comments Continue 2-gram sodium diet as tolerated. Expected Outcomes/Goals Expected Outcomes/Goals 1. PO intake to continue to meet >75% of estimated nutritional needs. 2. Monitor PO intake, wt, nutrition related labs, and skin integrity. 3. Gradual weight loss (0.5-1. 0 Lb/week) trending toward IBW preferred. 4. F/U as low risk in 7-10 days, 08/13-08/16.
--- NOTE | 2019-08-08 16:58 | Progress Notes ---
DATE: 08/08/2019 SUBJECTIVE: A 79-year-old female, still paranoid, guarded, unruly preoccupied. The patient stating that I am not her doctor if she refuses to see me "under the state laws of [place]" sometimes pleasant, other times irritable. The patient convincing staff that all she needs to take is Pepcid, Tylenol, and melatonin. I am encouraging her to take the Abilify. She states she does not need it. There is nothing wrong with it. "I am calm." Staff noting some forgetfulness. Still does not want to take medications. Medications reviewed. Labs reviewed. Vitals were reviewed. Blood pressure 153/77, pulse of 80. ASSESSMENT: A 79-year-old female, still preoccupied, does not want to take her medications. Poor insight. PLAN: We will continue inpatient monitoring, ongoing safety concerns. Poor impulse control. JOB# [id number]
[2019-08-09] MEDS: Multivitamin Tab PO SCH ×2 (08:31→08:40)
--- NOTE | 2019-08-09 14:38 | Internal Medicine Prog Note ---
Internal Medicine Subjective - Subjective Service Date: 08/09/19 Patient is:: awake, asleep Per staff patient has:: no adverse event, no episodes of fall Internal Medicine Objective - Results Recent Labs: Laboratory Last Values POC Glucose 132 MG/DL (70 - 105) H 08/02/19 15:03 - Physical Exam Vitals and I&O: Vital Signs Temp 97 F 08/09/19 06:40 Pulse 72 08/09/19 06:40 Resp 20 08/09/19 08:00 BP 140/76 08/09/19 06:40 Pulse Ox 95 08/09/19 06:40 Intake & Output 08/08/19 08/09/19 08/09/19 18:59 06:59 18:59 Intake Total 900 120 Balance 900 120 Intake: Oral 900 120 Other: # Voids 3 1 # Bowel Movements 1 0 Active Medications: Current Medications Acetaminophen (Tylenol) 650 mg PO Q4H PRN PRN Reason: Pain (Mild 1-3) Stop: 10/01/19 12:20 Last Admin: 08/08/19 21:16 Dose: 325 mg Acetaminophen (Tylenol Extra Strength) 1,000 mg PO Q6H PRN PRN Reason: Pain (Moderate 4-6) Stop: 10/01/19 12:20 Al Hydrox/Mg Hydrox/Simethicone (Maalox) 30 ml PO Q4HR PRN PRN Reason: GI DISTRESS Stop: 10/01/19 12:20 Famotidine (Pepcid) 20 mg PO DAILY [facility] Stop: 10/02/19 08:59 Last Admin: 08/09/19 08:32 Dose: 20 mg Ibuprofen (Motrin) 400 mg PO Q4H PRN PRN Reason: Pain (Severe 7-10) Stop: 10/01/19 12:20 Multivitamins/Vitamin C (Theragran) 1 tab PO DAILY [facility] Stop: 10/02/19 08:59 Last Admin: 08/09/19 08:40 Dose: Not Given Nitrofurantoin Macrocrystals (Macrobid) 100 mg PO BID [facility]; Protocol Stop: 08/10/19 16:59 Last Admin: 08/09/19 08:32 Dose: 100 mg Quetiapine Fumarate (Seroquel) 50 mg PO HS [facility]; Protocol Stop: 10/06/19 20:59 Last Admin: 08/08/19 21:16 Dose: Not Given Valproate Sodium (Depakene) 250 mg PO BID [facility]; Protocol Stop: 10/03/19 08:59 Last Admin: 08/09/19 08:39 Dose: Not Given Zolpidem Tartrate (Ambien) 5 mg PO HS PRN PRN Reason: Insomnia Stop: 10/01/19 12:20 Last Admin: 08/03/19 21:25 Dose: 5 mg HEENT: NC/AT Neck: Supple Lungs: CTAB Cardiovascular: RRR, Normal S1, Normal S2 Abdomen: soft Extremities: clear Neurological: no change - Procedures Procedures: Procedures Procedure Code Date GROUP PSYCHOTHERAPY 75974 08/26/15 GROUP PSYCHOTHERAPY GZHZZZZ 08/26/15 OTHER GROUP THERAPY 94.44 06/25/14 Internal Medicine Assmt/Plan - Assessment Assessment: 1. Dementia 2. HTN 3. HLD - Plan Plan: continue supportive care d.w r.n. Nutritional Asmnt/Malnutr-PDOC - Dietary Evaluation Malnutrition Findings (Please click <Entered> for more info): Nutritional Asmnt/Malnutrition Start: 08/07/19 11: 48 Text: Status: Complete Freq: Protocol: Document 08/07/19 11:48 ANTHONY (Rec: 08/07/19 11:53 ANTHONY KRISTINA-CTXTS -[id number]) Nutritional Asmnt/Malnutrition Patient General Information Nutritional Screening Moderate Risk Diagnosis Psychosis Pertinent Medical Hx/Surgical Hx HTN, COPD, Atherosclerosis, Anemia, Hyperlipidemia Subjective Information Pt is a 79-year-old female admitted on 08/01 d/t agitation . Pt is eating an estimated 95 % of meals Per Meal/Nutrition Activity Record. Dietary is currently providing an estimated 2352 kcals and 105gm Pro, per Pt PO intake this is providing an estimated 2230 kcals and 99gm Pro to meet 100 +% kcal and 100+% Pro needs. Had diet clerks reduce kcals and protein down to estimated need range as pt is eating about 95% meals. Anthropometrics Ht:56 Wt: 210 LB (95.45 kg) BMI: 34.04 (Obese I) GI/ Skin Integrity GI: Gerd, soft, non-tender I/O: 1640/ not noted Last BM: 08/03 x1 Skin: WNL, Intact Mansoor: 16 Diet Order: 2 Gram Sodium Estimated Energy Needs: (Obese , ABW) 6789-3471 kcals (20-25 kcals/ kg) 55-70g Pro (0.8-1.0 g/kg) 2102-3866 ml (20-25 ml/kg) Current Diet Order/ Nutrition Support 2 Gram Sodium Pertinent Medications Maalox (PRN), Theragran, Pepcid Pertinent Labs 08/01 POC Glucose 132 07/30 Glucose 134, Bun/Cr 22/0. 94, A1C 5.4% Nutritional Hx/Data Height 1.68 m Height (Calculated Centimeters) 167.6 Current Weight (lbs) 95.254 kg Weight (Calculated Kilograms) 95.3 Weight (Calculated Grams) 52731.4 [place] Body Weight 130 LB (59.09 kg) % [place] Body Weight 162 Body Mass Index (BMI) 33.9 Weight Status Obese GI Symptoms GI Symptoms None Last BM 08/03 x1 Skin Integrity/Comment: Skin: WNL, Intact Mansoor: 16 Current %PO Good (75-100%) Estimated Nutritional Goals BEE in Kcals: Adj wt of IBW Calories/Kcals/Kg 20-25 Kcals Calculated 5961-8920 Protein: Adj wt of IBW Protein g/k.8-1.0 Protein Calculated 55-70 Fluid: ml 8474-1002 ml (20-25 ml/kg) Nutritional Problem 1. Problem Problem Obese (Class I) Etiology related to chronic energy overconsumption intake Signs/Symptoms: as evidenced by BMI >18.5 (34. 04). Malnutrition Related to Morbid Obesity Malnutrition related to morbid obesity No Intervention/Recommendation Comments Continue 2-gram sodium diet as tolerated. Expected Outcomes/Goals Expected Outcomes/Goals 1. PO intake to continue to meet >75% of estimated nutritional needs. 2. Monitor PO intake, wt, nutrition related labs, and skin integrity. 3. Gradual weight loss (0.5-1. 0 Lb/week) trending toward IBW preferred. 4. F/U as low risk in 7-10 days, 08/13-08/16.
--- NOTE | 2019-08-09 16:59 | Progress Notes ---
DATE: 08/09/2019 SUBJECTIVE: A 79-year-old female who slept about 8 hours, still very agitated and stating "I refuse you by [facility], stating that I am not her doctor, someone else is her doctor, halluces some other doctor that does not come to this hospital, preoccupied, paranoid." The patient has not been particularly aggressive, does not want to take her medications. The patient is convinced that she is leaving today. Very impulsive, unpredictable, concerns for safety given poor medication compliance. Staff having to pay close attention, ongoing symptoms, safety concerns. Medications reviewed. Labs reviewed. Vitals were reviewed. Blood pressure 135/50, pulse is 74. ASSESSMENT: A 79-year-old female who remains unruly, impulsive, does not want to talk to me, poor med compliance. PLAN: We will continue inpatient monitoring, ongoing symptoms, safety concerns. [facility]# [id number]
[2019-08-10] MEDS: Multivitamin Tab PO SCH (09:10)
--- NOTE | 2019-08-10 17:47 | Progress Notes ---
DATE: 08/10/[address] Velazquez. IDENTIFYING DATA: A 79-year-old female brought in here for aggressive and agitated towards staff, believing that she is on disability. Early as yesterday it is noted that the patient continues to be easily agitated, argumentative with other peers. Today on [id number] evaluation, refusing to engage in conversation reporting that I am not her doctor demanding her right and walking away. ASSESSMENT AND PLAN: Disorganized, derails, easily agitated. She continues to be internally preoccupied and refusing to be interviewed. We will continue with the primary psychiatrist's team plan and goals, which include Seroquel, Depakote, and awaiting Depakote level. JOB# [id number]
[2019-08-11] MEDS: Multivitamin Tab PO SCH ×2 (08:45→08:52)
--- NOTE | 2019-08-11 21:16 | Progress Notes ---
DATE: 08/11/2019 SUBJECTIVE: The patient was seen and evaluated. The patient's chart was ____. Today on [id number] evaluation, she initiates a conversation with irritability, easily agitated, preoccupied that I am not her doctor. MENTAL STATUS EXAMINATION: Easily impulsive and irritable, needing a lot of redirection. ASSESSMENT PLAN: We will continue with supportive therapy, encouragement of Seroquel. She continues to present easily agitated and distraught. JOB# [id number]
[2019-08-12] MEDS: Multivitamin Tab PO SCH (08:33)
--- NOTE | 2019-08-12 09:17 | Progress Notes ---
DATE: 08/12/2019 SUBJECTIVE: Nursing staff reporting the patient is more redirectable, less preoccupied. Today on [id number] evaluation, the patient presents more calm. She reports that she misses ____ her [facility]. She is more redirectable. MENTAL STATUS EXAMINATION: ____ impulsive. ____. ASSESSMENT AND PLAN: We will continue monitoring her recent adjustments of medications, as she is starting to show some mild improvement and better insight. JOB# [id number]
[2019-08-13] MEDS: Multivitamin Tab PO SCH (09:05)
--- NOTE | 2019-08-13 14:39 | Internal Medicine Prog Note ---
Internal Medicine Subjective - Subjective Service Date: 08/13/19 Patient is:: awake, asleep Per staff patient has:: no adverse event, no episodes of fall Internal Medicine Objective - Results Recent Labs: Laboratory Last Values POC Glucose 90 MG/DL (70 - 105) 08/13/19 06:17 - Physical Exam Vitals and I&O: Vital Signs Temp 97.8 F 08/13/19 05:45 Pulse 74 08/13/19 05:45 Resp 20 08/13/19 08:00 BP 136/76 08/13/19 05:45 Pulse Ox 96 08/13/19 05:45 Intake & Output 08/12/19 08/13/19 08/13/19 18:59 06:59 18:59 Intake Total 1440 240 Balance 1440 240 Intake: Oral 1080 240 Other 360 Other: # Voids 4 2 # Bowel Movements 0 Active Medications: Current Medications Acetaminophen (Tylenol) 650 mg PO Q4H PRN PRN Reason: Pain (Mild 1-3) Stop: 10/01/19 12:20 Last Admin: 08/12/19 20:46 Dose: 325 mg Acetaminophen (Tylenol Extra Strength) 1,000 mg PO Q6H PRN PRN Reason: Pain (Moderate 4-6) Stop: 10/01/19 12:20 Last Admin: 08/11/19 20:59 Dose: 500 mg Al Hydrox/Mg Hydrox/Simethicone (Maalox) 30 ml PO Q4HR PRN PRN Reason: GI DISTRESS Stop: 10/01/19 12:20 Famotidine (Pepcid) 20 mg PO DAILY [facility] Stop: 10/02/19 08:59 Last Admin: 08/13/19 09:05 Dose: 20 mg Ibuprofen (Motrin) 400 mg PO Q4H PRN PRN Reason: Pain (Severe 7-10) Stop: 10/01/19 12:20 Multivitamins/Vitamin C (Theragran) 1 tab PO DAILY [facility] Stop: 10/02/19 08:59 Last Admin: 08/13/19 09:05 Dose: 1 tab Quetiapine Fumarate (Seroquel) 50 mg PO HS [facility]; Protocol Stop: 10/06/19 20:59 Last Admin: 08/12/19 20:50 Dose: 50 mg Valproate Sodium (Depakene) 250 mg PO BID [facility]; Protocol Stop: 10/03/19 08:59 Last Admin: 08/13/19 09:05 Dose: 250 mg Zolpidem Tartrate (Ambien) 5 mg PO HS PRN PRN Reason: Insomnia Stop: 10/01/19 12:20 Last Admin: 08/03/19 21:25 Dose: 5 mg HEENT: NC/AT Neck: Supple Lungs: CTAB Cardiovascular: RRR, Normal S1, Normal S2 Abdomen: soft Extremities: clear Neurological: no change - Procedures Procedures: Procedures Procedure Code Date GROUP PSYCHOTHERAPY 30177 08/26/15 GROUP PSYCHOTHERAPY GZHZZZZ 08/26/15 OTHER GROUP THERAPY 94.44 06/25/14 Internal Medicine Assmt/Plan - Assessment Assessment: 1. Dementia 2. HTN 3. HLD - Plan Plan: continue supportive care d.w rStevenSteve Nutritional Asmnt/Malnutr-PDOC - Dietary Evaluation Malnutrition Findings (Please click <Entered> for more info): Nutritional Asmnt/Malnutrition Start: 08/07/19 11: 48 Text: Status: Complete Freq: Protocol: Document 08/07/19 11:48 ANTHONY (Rec: 08/07/19 11:53 ANTHONY [id number] -[id number]) Nutritional Asmnt/Malnutrition Patient General Information Nutritional Screening Moderate Risk Diagnosis Psychosis Pertinent Medical Hx/Surgical Hx HTN, COPD, Atherosclerosis, Anemia, Hyperlipidemia Subjective Information Pt is a 79-year-old female admitted on 08/01 d/t agitation . Pt is eating an estimated 95 % of meals Per Meal/Nutrition Activity Record. Dietary is currently providing an estimated 2352 kcals and 105gm Pro, per Pt PO intake this is providing an estimated 2230 kcals and 99gm Pro to meet 100 +% kcal and 100+% Pro needs. Had diet clerks reduce kcals and protein down to estimated need range as pt is eating about 95% meals. Anthropometrics Ht:56 Wt: 210 LB (95.45 kg) BMI: 34.04 (Obese I) GI/ Skin Integrity GI: Gerd, soft, non-tender I/O: 1640/ not noted Last BM: 08/03 x1 Skin: WNL, Intact Mansoor: 16 Diet Order: 2 Gram Sodium Estimated Energy Needs: (Obese , ABW) 2229-5955 kcals (20-25 kcals/ kg) 55-70g Pro (0.8-1.0 g/kg) 2595-4233 ml (20-25 ml/kg) Current Diet Order/ Nutrition Support 2 Gram Sodium Pertinent Medications Maalox (PRN), Theragran, Pepcid Pertinent Labs 08/01 POC Glucose 132 07/30 Glucose 134, Bun/Cr 22/0. 94, A1C 5.4% Nutritional Hx/Data Height 1.68 m Height (Calculated Centimeters) 167.6 Current Weight (lbs) 95.254 kg Weight (Calculated Kilograms) 95.3 Weight (Calculated Grams) 69841.4 [place] Body Weight 130 LB (59.09 kg) % [place] Body Weight 162 Body Mass Index (BMI) 33.9 Weight Status Obese GI Symptoms GI Symptoms None Last BM 08/03 x1 Skin Integrity/Comment: Skin: WNL, Intact Mansoor: 16 Current %PO Good (75-100%) Estimated Nutritional Goals BEE in Kcals: Adj wt of IBW Calories/Kcals/Kg 20-25 Kcals Calculated 1418-0666 Protein: Adj wt of IBW Protein g/k.8-1.0 Protein Calculated 55-70 Fluid: ml 2190-3277 ml (20-25 ml/kg) Nutritional Problem 1. Problem Problem Obese (Class I) Etiology related to chronic energy overconsumption intake Signs/Symptoms: as evidenced by BMI >18.5 (34. 04). Malnutrition Related to Morbid Obesity Malnutrition related to morbid obesity No Intervention/Recommendation Comments Continue 2-gram sodium diet as tolerated. Expected Outcomes/Goals Expected Outcomes/Goals 1. PO intake to continue to meet >75% of estimated nutritional needs. 2. Monitor PO intake, wt, nutrition related labs, and skin integrity. 3. Gradual weight loss (0.5-1. 0 Lb/week) trending toward IBW preferred. 4. F/U as low risk in 7-10 days, 08/13-08/16.
[2019-08-14] MEDS: Multivitamin Tab PO SCH (08:45)
--- NOTE | 2019-08-14 17:05 | Internal Medicine Prog Note ---
Internal Medicine Subjective - Subjective Service Date: 08/14/19 Patient is:: awake, asleep Per staff patient has:: no adverse event, no episodes of fall Internal Medicine Objective - Results Recent Labs: Laboratory Last Values POC Glucose 90 MG/DL (70 - 105) 08/13/19 06:17 - Physical Exam Vitals and I&O: Vital Signs Temp 97.6 F 08/14/19 14:00 Pulse 77 08/14/19 14:00 Resp 20 08/14/19 14:00 BP 119/71 08/14/19 14:00 Pulse Ox 98 08/14/19 14:00 Intake & Output 08/13/19 08/14/19 08/14/19 18:59 06:59 18:59 Intake Total 900 120 Balance 900 120 Intake: Oral 900 120 Other: # Voids 3 3 # Bowel Movements 1 0 Active Medications: Current Medications Acetaminophen (Tylenol) 650 mg PO Q4H PRN PRN Reason: Pain (Mild 1-3) Stop: 10/01/19 12:20 Last Admin: 08/13/19 20:28 Dose: 325 mg Acetaminophen (Tylenol Extra Strength) 1,000 mg PO Q6H PRN PRN Reason: Pain (Moderate 4-6) Stop: 10/01/19 12:20 Last Admin: 08/11/19 20:59 Dose: 500 mg Al Hydrox/Mg Hydrox/Simethicone (Maalox) 30 ml PO Q4HR PRN PRN Reason: GI DISTRESS Stop: 10/01/19 12:20 Famotidine (Pepcid) 20 mg PO DAILY [facility] Stop: 10/02/19 08:59 Last Admin: 08/14/19 08:45 Dose: 20 mg Ibuprofen (Motrin) 400 mg PO Q4H PRN PRN Reason: Pain (Severe 7-10) Stop: 10/01/19 12:20 Multivitamins/Vitamin C (Theragran) 1 tab PO DAILY [facility] Stop: 10/02/19 08:59 Last Admin: 08/14/19 08:45 Dose: 1 tab Quetiapine Fumarate (Seroquel) 50 mg PO HS [facility]; Protocol Stop: 10/06/19 20:59 Last Admin: 08/13/19 20:28 Dose: 50 mg Valproate Sodium (Depakene) 250 mg PO BID [facility]; Protocol Stop: 10/03/19 08:59 Last Admin: 08/14/19 08:45 Dose: 250 mg Zolpidem Tartrate (Ambien) 5 mg PO HS PRN PRN Reason: Insomnia Stop: 10/01/19 12:20 Last Admin: 08/03/19 21:25 Dose: 5 mg HEENT: NC/AT Neck: Supple Lungs: CTAB Cardiovascular: RRR, Normal S1, Normal S2 Abdomen: soft Extremities: clear Neurological: no change - Procedures Procedures: Procedures Procedure Code Date GROUP PSYCHOTHERAPY 32515 08/26/15 GROUP PSYCHOTHERAPY GZHZZZZ 08/26/15 OTHER GROUP THERAPY 94.44 06/25/14 Internal Medicine Assmt/Plan - Assessment Assessment: 1. Dementia 2. HTN 3. HLD - Plan Plan: continue supportive care d.w r.n. Nutritional Asmnt/Malnutr-PDOC - Dietary Evaluation Malnutrition Findings (Please click <Entered> for more info): Nutritional Asmnt/Malnutrition Start: 08/07/19 11: 48 Text: Status: Complete Freq: Protocol: Document 08/07/19 11:48 ANTHONY (Rec: 08/07/19 11:53 ANTHONY [id number] -[id number]) Nutritional Asmnt/Malnutrition Patient General Information Nutritional Screening Moderate Risk Diagnosis Psychosis Pertinent Medical Hx/Surgical Hx HTN, COPD, Atherosclerosis, Anemia, Hyperlipidemia Subjective Information Pt is a 79-year-old female admitted on 08/01 d/t agitation . Pt is eating an estimated 95 % of meals Per Meal/Nutrition Activity Record. Dietary is currently providing an estimated 2352 kcals and 105gm Pro, per Pt PO intake this is providing an estimated 2230 kcals and 99gm Pro to meet 100 +% kcal and 100+% Pro needs. Had diet clerks reduce kcals and protein down to estimated need range as pt is eating about 95% meals. Anthropometrics Ht:56 Wt: 210 LB (95.45 kg) BMI: 34.04 (Obese I) GI/ Skin Integrity GI: Gerd, soft, non-tender I/O: 1640/ not noted Last BM: 08/03 x1 Skin: WNL, Intact Mansoor: 16 Diet Order: 2 Gram Sodium Estimated Energy Needs: (Obese , ABW) 4877-9010 kcals (20-25 kcals/ kg) 55-70g Pro (0.8-1.0 g/kg) 7898-6121 ml (20-25 ml/kg) Current Diet Order/ Nutrition Support 2 Gram Sodium Pertinent Medications Maalox (PRN), Theragran, Pepcid Pertinent Labs 08/01 POC Glucose 132 07/30 Glucose 134, Bun/Cr 22/0. 94, A1C 5.4% Nutritional Hx/Data Height 1.68 m Height (Calculated Centimeters) 167.6 Current Weight (lbs) 95.254 kg Weight (Calculated Kilograms) 95.3 Weight (Calculated Grams) 30428.4 [place] Body Weight 130 LB (59.09 kg) % [place] Body Weight 162 Body Mass Index (BMI) 33.9 Weight Status Obese GI Symptoms GI Symptoms None Last BM 08/03 x1 Skin Integrity/Comment: Skin: WNL, Intact Mansoor: 16 Current %PO Good (75-100%) Estimated Nutritional Goals BEE in Kcals: Adj wt of IBW Calories/Kcals/Kg 20-25 Kcals Calculated 1284-1994 Protein: Adj wt of IBW Protein g/k.8-1.0 Protein Calculated 55-70 Fluid: ml 9715-1647 ml (20-25 ml/kg) Nutritional Problem 1. Problem Problem Obese (Class I) Etiology related to chronic energy overconsumption intake Signs/Symptoms: as evidenced by BMI >18.5 (34. 04). Malnutrition Related to Morbid Obesity Malnutrition related to morbid obesity No Intervention/Recommendation Comments Continue 2-gram sodium diet as tolerated. Expected Outcomes/Goals Expected Outcomes/Goals 1. PO intake to continue to meet >75% of estimated nutritional needs. 2. Monitor PO intake, wt, nutrition related labs, and skin integrity. 3. Gradual weight loss (0.5-1. 0 Lb/week) trending toward IBW preferred. 4. F/U as low risk in 7-10 days, 08/13-08/16.
--- NOTE | 2019-08-14 18:43 | Progress Notes ---
DATE: 08/14/2019 SUBJECTIVE: A 79-year-old female, still does not want to talk to me, intermittently does not want to take medications, stating she does not have to see me "by order of the [facility]," limited face to face, remains irritable, upset, likely approaching her baseline. No agitation; no escalation of behaviors; taking the Seroquel at nighttime, only a small dose. Medications were reviewed. Labs were reviewed. Vitals were reviewed. ASSESSMENT: A 79-year-old female, difficult to control her symptoms, oppositional to her treatment, rude, upset, irritable. PLAN: We will continue inpatient monitoring. We will order COVID-19 testing with plans for discharge in the next 1-2 days. The patient has been generally calm, just irritable. JOB# [id number]
[2019-08-15] MEDS: Multivitamin Tab PO SCH (08:28)
--- NOTE | 2019-08-15 15:01 | Internal Medicine Prog Note ---
Internal Medicine Subjective - Subjective Service Date: 08/15/19 Patient is:: awake, asleep Per staff patient has:: no adverse event, no episodes of fall Internal Medicine Objective - Results Recent Labs: Laboratory Last Values POC Glucose 92 MG/DL (70 - 105) 08/15/19 05:16 - Physical Exam Vitals and I&O: Vital Signs Temp 97.9 F 08/15/19 14:00 Pulse 73 08/15/19 14:00 Resp 20 08/15/19 14:00 BP 125/71 08/15/19 14:00 Pulse Ox 97 08/15/19 14:00 Intake & Output 08/14/19 08/15/19 08/15/19 18:59 06:59 18:59 Intake Total 900 240 Balance 900 240 Intake: Oral 900 240 Other: # Voids 3 2 # Bowel Movements 1 0 Active Medications: Current Medications Acetaminophen (Tylenol) 650 mg PO Q4H PRN PRN Reason: Pain (Mild 1-3) Stop: 10/01/19 12:20 Last Admin: 08/14/19 20:31 Dose: 325 mg Acetaminophen (Tylenol Extra Strength) 1,000 mg PO Q6H PRN PRN Reason: Pain (Moderate 4-6) Stop: 10/01/19 12:20 Last Admin: 08/11/19 20:59 Dose: 500 mg Al Hydrox/Mg Hydrox/Simethicone (Maalox) 30 ml PO Q4HR PRN PRN Reason: GI DISTRESS Stop: 10/01/19 12:20 Famotidine (Pepcid) 20 mg PO DAILY [facility] Stop: 10/02/19 08:59 Last Admin: 08/15/19 09:55 Dose: 20 mg Ibuprofen (Motrin) 400 mg PO Q4H PRN PRN Reason: Pain (Severe 7-10) Stop: 10/01/19 12:20 Multivitamins/Vitamin C (Theragran) 1 tab PO DAILY [facility] Stop: 10/02/19 08:59 Last Admin: 08/15/19 08:28 Dose: Not Given Quetiapine Fumarate (Seroquel) 50 mg PO HS [facility]; Protocol Stop: 10/06/19 20:59 Last Admin: 08/14/19 20:26 Dose: 50 mg Valproate Sodium (Depakene) 250 mg PO BID [facility]; Protocol Stop: 10/03/19 08:59 Last Admin: 08/15/19 08:27 Dose: Not Given Zolpidem Tartrate (Ambien) 5 mg PO HS PRN PRN Reason: Insomnia Stop: 10/01/19 12:20 Last Admin: 08/03/19 21:25 Dose: 5 mg HEENT: NC/AT Neck: Supple Lungs: CTAB Cardiovascular: RRR, Normal S1, Normal S2 Abdomen: soft Extremities: clear Neurological: no change - Procedures Procedures: Procedures Procedure Code Date GROUP PSYCHOTHERAPY 51200 08/26/15 GROUP PSYCHOTHERAPY GZHZZZZ 08/26/15 OTHER GROUP THERAPY 94.44 06/25/14 Internal Medicine Assmt/Plan - Assessment Assessment: 1. Dementia 2. HTN 3. HLD - Plan Plan: continue supportive care d.w r.n. Nutritional Asmnt/Malnutr-PDOC - Dietary Evaluation Malnutrition Findings (Please click <Entered> for more info): Nutritional Asmnt/Malnutrition Start: 08/07/19 11: 48 Text: Status: Complete Freq: Protocol: Document 08/07/19 11:48 ANTHONY (Rec: 08/07/19 11:53 ANTHONY [email or web address] -[id number]) Nutritional Asmnt/Malnutrition Patient General Information Nutritional Screening Moderate Risk Diagnosis Psychosis Pertinent Medical Hx/Surgical Hx HTN, COPD, Atherosclerosis, Anemia, Hyperlipidemia Subjective Information Pt is a 79-year-old female admitted on 08/01 d/t agitation . Pt is eating an estimated 95 % of meals Per Meal/Nutrition Activity Record. Dietary is currently providing an estimated 2352 kcals and 105gm Pro, per Pt PO intake this is providing an estimated 2230 kcals and 99gm Pro to meet 100 +% kcal and 100+% Pro needs. Had diet clerks reduce kcals and protein down to estimated need range as pt is eating about 95% meals. Anthropometrics Ht:56 Wt: 210 LB (95.45 kg) BMI: 34.04 (Obese I) GI/ Skin Integrity GI: Gerd, soft, non-tender I/O: 1640/ not noted Last BM: 08/03 x1 Skin: WNL, Intact Mansoor: 16 Diet Order: 2 Gram Sodium Estimated Energy Needs: (Obese , ABW) 5533-1685 kcals (20-25 kcals/ kg) 55-70g Pro (0.8-1.0 g/kg) 1580-9875 ml (20-25 ml/kg) Current Diet Order/ Nutrition Support 2 Gram Sodium Pertinent Medications Maalox (PRN), Theragran, Pepcid Pertinent Labs 08/01 POC Glucose 132 07/30 Glucose 134, Bun/Cr 22/0. 94, A1C 5.4% Nutritional Hx/Data Height 1.68 m Height (Calculated Centimeters) 167.6 Current Weight (lbs) 95.254 kg Weight (Calculated Kilograms) 95.3 Weight (Calculated Grams) 63735.4 [place] Body Weight 130 LB (59.09 kg) % [place] Body Weight 162 Body Mass Index (BMI) 33.9 Weight Status Obese GI Symptoms GI Symptoms None Last BM 08/03 x1 Skin Integrity/Comment: Skin: WNL, Intact Mansoor: 16 Current %PO Good (75-100%) Estimated Nutritional Goals BEE in Kcals: Adj wt of IBW Calories/Kcals/Kg 20-25 Kcals Calculated 4364-6451 Protein: Adj wt of IBW Protein g/k.8-1.0 Protein Calculated 55-70 Fluid: ml 6261-6210 ml (20-25 ml/kg) Nutritional Problem 1. Problem Problem Obese (Class I) Etiology related to chronic energy overconsumption intake Signs/Symptoms: as evidenced by BMI >18.5 (34. 04). Malnutrition Related to Morbid Obesity Malnutrition related to morbid obesity No Intervention/Recommendation Comments Continue 2-gram sodium diet as tolerated. Expected Outcomes/Goals Expected Outcomes/Goals 1. PO intake to continue to meet >75% of estimated nutritional needs. 2. Monitor PO intake, wt, nutrition related labs, and skin integrity. 3. Gradual weight loss (0.5-1. 0 Lb/week) trending toward IBW preferred. 4. F/U as low risk in 7-10 days, 08/13-08/16.
--- NOTE | 2019-08-15 18:01 | Progress Notes ---
DATE: 08/15/2019 SUBJECTIVE: The patient in the hospital, seemingly calmer, likely at her baseline, sometimes taking medications, other times not. She has been calm, no agitation, no escalation of behaviors. Mild confusion, more pleasant with me today, seems that she is showing some signs of improvement. No agitation. No escalation of behaviors, right now are waiting on COVID-19 testing, concerns from the long-term about COVID-19 for obvious reasons. Sleeping well, eating well. Mood "okay." Happy demeanor. Sleeping well, eating well and getting along well with others. Medications were reviewed. Labs reviewed. Vitals were reviewed. ASSESSMENT: A 79-year-old female, erratic medication compliance, calmer, likely approaching her baseline, cannot take care of her basic needs. She needs to go to a [facility]. The [facility] will not take her without COVID-19 testing. JOB# [id number]
[2019-08-16] MEDS: Multivitamin Tab PO SCH (08:38)
--- NOTE | 2019-08-16 11:55 | Discharge Summary ---
DATE OF DISCHARGE: 08/16/2019 HISTORY OF PRESENT ILLNESS: A 79-year-old female coming in from a [facility], agitated, disruptive, trying to hit others, unruly, some confusion noted, very impulsive, unpredictable, history of inpatient admissions in the past. PAST PSYCHIATRIC HISTORY: Noted. She has been in this unit before. SOCIAL HISTORY: Coming from a [facility]. MEDICATIONS: Noted. DIAGNOSIS: Mood, unspecified. MEDICAL: Please see full H and P. HOSPITAL COURSE: After initial assessment, the patient was started on medications. Medications were adjusted, titrated, erratically compliant with medications, but she was much calmer over the course of treatments. Over the course of treatment, mood improved, affect improved, seems to be getting along well with others, was more pleasant with this clinician as time went on. Fair sleep and appetite. No agitation, no escalation of behaviors. No combative behaviors. CONDITION UPON DISCHARGE: Improved, calm, pleasant, cooperative and some confusion noted. No SI, no HI. No overt psychotic symptoms, very redirectable per staff. Better impulse control. DISCHARGE DIAGNOSES: Mood, unspecified. MEDICAL: Please see full H and P. Concerns for dementia. PROGNOSIS: The patient follows up with outpatient mental health services and remains compliant with treatment. Prognosis will improve, otherwise guarded. Medical H and P was reviewed. JOB# [id number]
== END 2019-08-16 16:15 | DRG 885 ==
LOC: GERO 08-02 10:00
PROVIDERS: ADMIT Psychiatry & Neurology Psychiatry; ATTEND Psychiatry & Neurology Psychiatry
DX: F39 Unspecified mood [affective] disorder (principal); I10 Essential (primary) hypertension; E78.5 Hyperlipidemia, unspecified; F03.90 Unspecified dementia, unspecified severity, without behavioral disturbance, psychotic disturbance, mood disturbance, and anxiety; J44.9 Chronic obstructive pulmonary disease, unspecified; D64.9 Anemia, unspecified; Z88.6 Allergy status to analgesic agent; Z88.8 Allergy status to other drugs, medicaments and biological substances
CPT/HCPCS: 82948-90; 83036-90; G0410; Z7610